=== PATIENT | male | born 1950 | race Caucasian/White ===

== ENCOUNTER → 2016-10-06 | Day surgery (SDC) | payer OTHER ==
[2016-09-24 12:51] VITALS: Ht 177.8 cm; Wt 88.6 kg
[~2016-10-06] VITALS: Ht 177.8 cm; Wt 88.6 kg
[2016-10-06] VITALS (8 sets, daily range): BP systolic 90–115; BP diastolic 49–62; PULSE 71–79; TEMP 36.6–36.9; O2SAT 93–97
[~2016-10-06] MED LIST: ATROPINE SULFATE 0.1 MG/ML 5ML SYR IV PRN; BUPIVACAINE 0.5 % 5 MG/1 ML MPF 30ML VIAL ONE; CEFAZOLIN 2000 MG/60 ML D5W IV SCH; CEFAZOLIN SOD 1 GM VIAL ONE; CITA40TA4 PO; CLINDAMYCIN 600 MG/54 ML D5W IV SCH; CLINDAMYCIN PHOS 150 MG/ML 2 ML VIAL ONE; CONRAY 60% 50 ML VIAL ONE; DEXAMETHASONE SOD INJ 4 MG/ML VIAL ONE; EpHEDrine SULFATE 50MG/5ML SYR ONE; EpHEDrine SULFATE INJ 50 MG/ML AMP IV PRN; FENTANYL CITRATE INJ 50 MCG/1 ML 2 ML VIAL ONE; GLYCOPYRROLATE INJ 0.2 MG/ML VIAL ONE; HEPARIN SOD (PORCINE) 1000 UNIT/ML 10 ML VIAL ONE; LACTATED RINGER'S 1000ML 1,000 ML IV SCH; LIDOCAINE HCL 2% 2 ML VIAL (20MG/ML) ONE; METO25TA3 PO; MIDAZOLAM HCL 1 MG/ML 2ML VIAL ONE; MoRPHine SULFATE 4 MG/ML 1 ML CARP\\VIAL IV PRN; NEOSTIGMINE METHYLSULFATE 5 MG/5 ML SYR ONE; NURSING VERBAL MED ORDER ONE; ONDANSETRON INJ 2 MG/ML 2 ML VIAL IV PRN; ONDANSETRON INJ 2 MG/ML 2 ML VIAL ONE; OXYCODONE/ACETAMINOPHEN 5-325 TAB PO PRN; PANT40TA PO; PROPOFOL IV EMULSION 10 MG/ML 20 ML VIAL IV ONE; ROCURONIUM BROMIDE 10 MG/ML 5 ML VIAL IV ONE; SODIUM CHLORIDE 0.9% 1000ML 1,000 ML IV SCH
--- NOTE | 2016-10-06 06:59 | History & Physical Bridge Note ---
H&P Re-Evaluation Bridge Note: I have examined the patient, reviewed the History & Physical and in the interval since the performance of the History & Physical I have noted the following changes of clinical significance: No changes noted
--- NOTE | 2016-10-06 08:24 | [facility] Post Operative Brief Note ---
Immediate Operative Summary Operative Date Oct 06, 2016. Pre-Operative Diagnosis Calculus of Gallbladder without Cholecystitis without obstruction Post-Operative Diagnosis Same as preoperative Procedure(s) Performed Laparoscopic Cholecystectomy Surgeon Dr. 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
--- NOTE | 2016-10-06 08:31 | Discharge Instructions ---
Discharge Instructions Date of Service Oct 06, 2016. Admission Reason for Admission: Calculus Of Gallbladder Discharge Discharge Diagnosis / Problem: Same Discharge Goals Goal(s): Decrease discomfort Activity Recommendations Activity Limitations: per Instructions/Follow-up section Lifting Limitations: no more than 10 pounds Shower/Bathe: tomorrow (Shower only) . Current Hospital Diet Patient's current hospital diet: Discharge Diet Recommended Diet: Regular Diet Procedures Procedures Performed: Laparoscopic Cholecystectomy Pending Studies Studies pending at discharge: yes List of pending studies: Pathology Medical Emergencies . Who to Call and When: Medical Emergencies: If at any time you feel your situation is an emergency, please call 911 immediately. . Non-Emergent Contact Non-Emergency issues call your: Primary Care Provider, Surgeon Call Non-Emergent contact if: your pain is worsening, wound has increased redness, wound has increased pain . "Provider Documentation" section prepared by Jimi Caal. . VTE Core Measure Inpt VTE Proph given/why not?: Treatment not indicated
[2016-10-06] MEDS: FENTANYL CITRATE INJ 50 MCG/1 ML 2 ML VIAL IV PRN ×2 (08:46→08:51)
--- NOTE | 2016-10-06 09:08 | Anesthesiology Progress Note ---
Anesthesia Post Op Note Date & Time Oct 06, 2016 at 09:08 Vital Signs Pain Intensity: 3 Vital Signs Past 12 Hours Date Time Temp Pulse Resp B/P (MAP) Pulse Ox O2 Delivery O2 Flow Rate FiO2 10/06/16 09:05 36.9 75 16 98/60 92 Nasal Cannula 4 10/06/16 08:55 79 14 94/61 92 Nasal Cannula 4 10/06/16 08:45 82 14 105/62 96 Oxymask 10 10/06/16 08:35 84 14 103/58 96 Oxymask 10 10/06/16 08:24 36.4 86 14 98/61 95 Oxymask 10 10/06/16 05:54 36.6 71 18 115/62 (79) 97 Room Air Notes Mental Status: alert / awake / arousable, participated in evaluation Pt Amnestic to Procedure: Yes Nausea / Vomiting: adequately controlled Pain: adequately controlled Airway Patency, RR, SpO2: stable & adequate BP & HR: stable & adequate Hydration State: stable & adequate Anesthetic Complications: no major complications apparent
--- NOTE | 2016-10-06 10:00 | OPERATIVE REPORT ---
DATE OF OPERATION: 10/06/2016 PREOPERATIVE DIAGNOSES: Cholelithiasis, chronic cholecystitis. POSTOPERATIVE DIAGNOSES: Same. PROCEDURE: Laparoscopic cholecystectomy. SURGEON: Jimi Caal MD FINDINGS: The gallbladder was not dilated. There was a large stone within its lumen. The cystic duct was narrow. The liver appeared to be of normal size and contour and the visible bowel appeared normal. There were no adhesions to the gallbladder. TECHNIQUE: The patient was given a general anesthetic and the area was prepped and draped in usual sterile fashion. Transverse incision was made below the umbilicus, carried down through the subcutaneous tissue to the fascia which was grasped with 2 Pavel clamps and incised between. The peritoneum was identified, incised, and the introducer was placed bluntly. The abdomen was then insufflated to a pressure of 15 mmHg with carbon dioxide. The upper, midline, mid clavicular and anterior axillary introducers were placed under direct vision through small skin incisions. Traction was placed on the gallbladder. Beginning on the lateral side, the peritoneum was opened and the infundibulum was dissected away from the liver on that side. I then worked over the anterior surface of the infundibulum and into the triangle of Calot and opened it and dissected the medial aspect of the infundibulum away from the liver allowing better mobility. There was a significant amount of thickened connective tissue and lymphatics adherent to the cystic duct, which were taken down using cautery, which exposed the cystic duct on the medial anterior side. I was then able to dissect additional tissue away from the lateral side and establish a plane behind the cystic duct. I then dissected additional infundibulum posteriorly that away from the liver that allowed me then to identify the cystic artery in the triangle of Calot. I was able to identify with confidence the cystic duct gallbladder junction. Three clips were placed on the proximal cystic duct, one near the gallbladder and it was divided. That allowed me to fully expose the cystic artery, which was clamped twice proximally and once near the gallbladder and divided. The gallbladder was then peeled off the liver bed using cautery. In doing so, there was another tubular structure that was either a posterior branch of the artery or lymphatic that was clamped and divided. Once the gallbladder was completely away from the liver, it was placed into an Endobag and brought out through the upper midline incision where I had to open the gallbladder on the outside and remove the bile. I then had to crush the stone in order to extract the gallbladder within the bag, but that was completed. That introducer was replaced and the liver edge was elevated. The subdiaphragmatic and subhepatic spaces were irrigated and the irrigation was removed. The gallbladder bed of the liver was inspected and there was no bleeding. The previously placed clips were intact. The gas was allowed to escape, removed using suction. The fascia of the introducers were removed and then the fascia of the umbilical and upper midline introducer sites was closed with interrupted 0 Vicryl and the skin of all the incisions was closed with 4-0 Monocryl in either an interrupted or running subcuticular fashion. The skin was cleansed, dried, benzoin placed, and Steri-Strips applied. The estimated blood loss was 5 mL. Sponge, needle and instrument counts were correct x2 prior to closure. The patient tolerated the surgical procedure without complication and was transferred to recovery. I attest to the content of the Intraoperative Record and any orders documented therein. Any exceptions are noted below. RUSS
== END | disposition home or self-care (01) ==
LOC: C.ACU 05:19
PROVIDERS: ATTEND Surgery
DX: K80.10 Calculus of gallbladder with chronic cholecystitis without obstruction (principal); I48.91 Unspecified atrial fibrillation; I48.92 Unspecified atrial flutter; K21.9 Gastro-esophageal reflux disease without esophagitis; D89.0 Polyclonal hypergammaglobulinemia; Z87.891 Personal history of nicotine dependence; Z79.899 Other long term (current) drug therapy

== ENCOUNTER → 2017-06-03 | Outpatient (CLI) | payer OTHER ==
[~2017-06-03] MED LIST changes: -ATROPINE SULFATE 0.1 MG/ML 5ML SYR IV PRN; -BUPIVACAINE 0.5 % 5 MG/1 ML MPF 30ML VIAL ONE; -CEFAZOLIN 2000 MG/60 ML D5W IV SCH; -CEFAZOLIN SOD 1 GM VIAL ONE; -CLINDAMYCIN 600 MG/54 ML D5W IV SCH; -CLINDAMYCIN PHOS 150 MG/ML 2 ML VIAL ONE; -CONRAY 60% 50 ML VIAL ONE; -DEXAMETHASONE SOD INJ 4 MG/ML VIAL ONE; -EpHEDrine SULFATE 50MG/5ML SYR ONE; -EpHEDrine SULFATE INJ 50 MG/ML AMP IV PRN; -FENTANYL CITRATE INJ 50 MCG/1 ML 2 ML VIAL ONE; -GLYCOPYRROLATE INJ 0.2 MG/ML VIAL ONE; -HEPARIN SOD (PORCINE) 1000 UNIT/ML 10 ML VIAL ONE; -LACTATED RINGER'S 1000ML 1,000 ML IV SCH; -LIDOCAINE HCL 2% 2 ML VIAL (20MG/ML) ONE; -MIDAZOLAM HCL 1 MG/ML 2ML VIAL ONE; -MoRPHine SULFATE 4 MG/ML 1 ML CARP\\VIAL IV PRN; -NEOSTIGMINE METHYLSULFATE 5 MG/5 ML SYR ONE; -NURSING VERBAL MED ORDER ONE; -ONDANSETRON INJ 2 MG/ML 2 ML VIAL IV PRN; -ONDANSETRON INJ 2 MG/ML 2 ML VIAL ONE; -OXYCODONE/ACETAMINOPHEN 5-325 TAB PO PRN; -PROPOFOL IV EMULSION 10 MG/ML 20 ML VIAL IV ONE; -ROCURONIUM BROMIDE 10 MG/ML 5 ML VIAL IV ONE; -SODIUM CHLORIDE 0.9% 1000ML 1,000 ML IV SCH
--- NOTE | 2017-06-03 12:35 | DIAGNOSTIC IMAGING REPORT ---
GUIDANCE NEEDLE PLACEMENT CLINICAL HISTORY: LYMPH NODE NECK/ABNORMAL PET SCAN TECHNIQUE: Ultrasound guided fine needle aspiration with core biopsy COMPARISON STUDY: None FINDINGS: Following description of the procedure and informed consent, 2 passes with a 25-gauge needle were obtained. This is followed by 2 passes with a 20-gauge core biopsy needle. Given the patient's stated allergy to Novocain/lidocaine, the study was performed without the substance. IMPRESSION: Successful fine-needle aspiration and core needle biopsy of a large right axillary node. No complications. Lidocaine was not used in this procedure given the patient's stated severe contrast allergy The above report was generated using voice recognition software. It may contain grammatical, syntax or spelling errors. Electronically signed by: Jimi Villanueva M.D. 06/03/2017 12:34 PM Dictated Date/Time: 06/03/2017 12:30 PM
== END | disposition home or self-care (01) ==
LOC: C.ULTR 10:45
PROVIDERS: ATTEND Physician Assistant
DX: C88.0 Waldenstrom macroglobulinemia (principal)

== ENCOUNTER → 2017-09-07 | Day surgery (SDC) | payer OTHER ==
[2017-09-03 10:45] VITALS: BMI 25.0
[~2017-09-07] VITALS: Ht 177.8 cm; Wt 77.2 kg
[~2017-09-07] MED LIST changes: +ALLO100T PO; +ATROPINE SULFATE 0.1 MG/ML 5ML SYR IV PRN; +BACITRACIN OINT 15 GM TUBE ONE; +BUPIVACAINE 0.25% 30 ML VIAL ONE; +CLINDAMYCIN 600 MG/54 ML D5W IV SCH; +CLINDAMYCIN IV 600 MG in DEXTROSE 5% 50ML 50 ML IV ONE; +DEXT1TAB50 PO; +EpHEDrine SULFATE INJ 50 MG/ML AMP IV PRN; +FENTANYL CITRATE INJ 50 MCG/1 ML 2 ML VIAL ONE; +FLUT0.15 INTNAS; +LACTATED RINGER'S 1000ML 1,000 ML IV SCH; +LIDOCAINE HCL 1% 20 ML VIAL ONE; +LIDOCAINE HCL 2% 2 ML VIAL (20MG/ML) ONE; +MECL1TAB42 PO; -METO25TA3 PO; +MIDAZOLAM HCL 1 MG/ML 2ML VIAL ONE; +MoRPHine SULFATE 2 MG/ML CARP IV PRN; +ONDA-170 PO; +ONDANSETRON INJ 2 MG/ML 2 ML VIAL IV PRN; +ONDANSETRON INJ 2 MG/ML 2 ML VIAL ONE; +OXYC-57 PO; +OXYCODONE/ACETAMINOPHEN 5-325 TAB PO PRN; +PHENYLEPHRINE 100MCG/ML 5ML SYR ONE; +PROPOFOL IV EMULSION 10 MG/ML 20 ML VIAL ONE; +SODIUM CHLORIDE 0.9% 1000ML 1,000 ML IV SCH; +VNTHFA/IN INH
[2017-09-07 05:39] VITALS: BP 108/48; PULSE 82; TEMP 37; O2SAT 99; Ht 177.8 cm; Wt 77.2 kg
--- NOTE | 2017-09-07 07:54 | [facility] Post Operative Brief Note ---
Immediate Operative Summary Operative Date Sep 07, 2017. Pre-Operative Diagnosis Lymphoma Post-Operative Diagnosis same Procedure(s) Performed Infusaport Insertion, right internal jugular vein Surgeon Dr. 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
--- NOTE | 2017-09-07 08:08 | Discharge Instructions ---
Discharge Instructions Date of Service Sep 07, 2017. Visit Reason for Visit: Circulatory System Disorder Discharge Discharge Diagnosis / Problem: S/P port insertion Discharge Goals Goal(s): Decrease discomfort, Improve function Activity Recommendations Activity Limitations: per Instructions/Follow-up section Lifting Limitations: no more than 25 pounds Exercise/Sports Limitations: rest today May Resume Sexual Activity: when tolerated Shower/Bathe: may shower/bathe in 3 days Driving or Machine Use: resume 3 days after discharge Anesthesia . Post Anesthesia Instructions: If you have had General Anesthesia or IV Sedation: * Do not drive today. * Resume driving when surgeon permits. * Do not make important decisions or sign legal documents today. * Call surgeon for: 1. Temperature elevations greater than 101 degrees F. 2. Uncontrollable pain. 3. Excessive bleeding. 4. Persistent nausea and vomiting. 5. Medication intolerance (nausea, vomiting or rash). * For nausea and vomiting use only clear liquids such as: tea, soda, bouillon until nausea subsides, then gradually increase diet as tolerated. * If you have any concerns or questions, call your surgeon's office. If physician is unavailable and it is an emergency, call 911 or go to the nearest emergency room. . Instructions / Follow-Up Instructions / Follow-Up keep the dressing on for 4 days, he can take a shower on 09/11/2017, no driving while taking pain medicine, apply bacitricin on incision site once a day after 4 days, Follow up Dr Milly Ni in 1-2 weeks, Diet Recommendations Recommended Home Diet: resume previous diet Procedures Procedures Performed: Infusaport Insertion, right internal jugular vein Pending Studies Studies pending at discharge: no Medical Emergencies . Who to Call and When: Medical Emergencies: If at any time you feel your situation is an emergency, please call 911 immediately. . Non-Emergent Contact Non-Emergency issues call your: Surgeon Call Non-Emergent contact if: you have a fever, temperature is above 100.5, your pain is not controlled, your pain is worsening, wound has increased drainage, wound has increased redness . . "Provider Documentation" section prepared by Jyoti Ni. . [place] Drug Monitoring Program Search Results: no issues identified
--- NOTE | 2017-09-07 08:20 | DIAGNOSTIC IMAGING REPORT ---
CHEST ONE VIEW PORTABLE CLINICAL HISTORY: TO r/o ptx tube position COMPARISON STUDY: No previous studies for comparison. FINDINGS: Central catheter in the superior vena cava. No evidence pneumothorax. Slight left and to lesser extent right basilar interstitial prominence. Diaphragms smooth. No evidence for consolidative infiltrate. IMPRESSION: 1. Central catheter in superior vena cava. 2. No evidence pneumothorax. 3. Potential minimal infiltrative process left base. The above report was generated using voice recognition software. It may contain grammatical, syntax or spelling errors. Electronically signed by: Jimi Villanueva M.D. 09/07/2017 8:19 AM Dictated Date/Time: 09/07/2017 8:18 AM
[2017-09-07 08:35] VITALS: BP 88/54; PULSE 77; TEMP 36.4; O2SAT 93
--- NOTE | 2017-09-07 08:50 | Anesthesiology Progress Note ---
Anesthesia Post Op Note Date & Time Sep 07, 2017 at 08:49 Vital Signs Pain Intensity: 0 Vital Signs Past 12 Hours Date Time Temp Pulse Resp B/P (MAP) Pulse Ox O2 Delivery O2 Flow Rate FiO2 09/07/17 08:20 36.3 78 16 101/54 96 Room Air 09/07/17 08:10 81 16 101/59 96 Oxymask 3 09/07/17 08:00 36.4 90 16 84/48 94 Oxymask 5 09/07/17 05:39 37.0 82 20 108/48 (68) 99 Room Air Notes Mental Status: alert / awake / arousable, participated in evaluation Pt Amnestic to Procedure: Yes Nausea / Vomiting: adequately controlled Pain: adequately controlled Airway Patency, RR, SpO2: stable & adequate BP & HR: stable & adequate Hydration State: stable & adequate Anesthetic Complications: no major complications apparent
[2017-09-07 08:55] VITALS: BP 84/50; PULSE 79; TEMP 36.4; O2SAT 95
[2017-09-07 09:10] VITALS: BP 92/53; PULSE 82; TEMP 36.4; O2SAT 94
[2017-09-07 09:40] VITALS: BP 92/60; PULSE 78; TEMP 36.4; O2SAT 97
--- NOTE | 2017-09-07 11:01 | OPERATIVE REPORT ---
DATE OF OPERATION: 09/07/2017 PREOPERATIVE DIAGNOSES: Lymphoma. POSTOPERATIVE DIAGNOSIS: Lymphoma. PROCEDURE: Port insertion in right internal jugular vein. SURGEON: Jyoti Ni MD ANESTHESIA: Conscious sedation plus local. ESTIMATED BLOOD LOSS: About 5 mL FINDINGS: Patent right internal jugular vein. COMPLICATIONS: None. INDICATIONS FOR THE PROCEDURE: This is a 67-year-old gentleman who required to do port insertion for his chemotherapy for lymphoma. I did talk to patient about the benefit, the risk, alternate procedure. I indicated the risks may include but not limited such as bleeding, infection, injury of vessel, dysfunction of catheter, bladder clot. Patient understands. He signed informed consent. He agreed to proceed with procedure. I answered all questions. DETAILS OF PROCEDURE: We brought the patient to the OR, put the patient on the supine position and patient is ALLERGIC TO NOVOCAIN, for that anesthesia already recommended use of sedation plus local with 1% lidocaine and patient received conscious sedation by the anesthesiology and also patient received 600 mg clindamycin IV for prophylactic antibiotic. Patient received SCD on bilateral legs to prevent DVT. Then the patient's right side neck and the right upper chest were properly draped in routine sterile fashion. After time out, I did injection of 1% lidocaine on the right side of the neck and wait 2 minute. Patient had normal heart rate and blood pressure was stable. Then, I did injection of the local 1% lidocaine along right upper chest, then I used ultrasound to locate the right internal jugular vein. I then made a 0.5 cm incision on the right side of neck, used a 15-gauge needle puncture to the right internal jugular vein without difficulty, easy blood return. We passed the wire over the needle and removed the needle. Then used a fluorescence x-ray confirmed the wire in the superior vena cava and made a 2.5 cm incision on the right upper chest to create the pouch. Then I used a tunneled dilator passed the upper chest to the right neck and passed the catheter through the tunnel, we sized the catheter. The catheter and the port flushed with normal saline plus heparin. Then, we used a dilator sheath to pass the wire, removed the wire and cord structure, left a sheet in. Then passed the Port-A catheter through the sheath. Then we removed the sheet and again we used the fluorescence x-ray, confirmed the tip of the catheter located in junction between right atrium and the superior vena cava. Then, we used a 2-0 Prolene to fix the port on the chest wall at its 3 points. Then, we used a needle to puncture the port, easy blood return, injection of normal saline with heparin. Then, hemostasis obtained. We closed the subcutaneous layer by using 2-0 Vicryl continuous running, closed skin by using 4-0 Vicryl continuous running. We put the dressing on. The patient tolerated the procedure well. All the instrument, needle and sponge count were correct x2 at the end of case. Patient transferred to recovery room in stable condition. After procedure, I did talk to the patient's about OR finding and procedure we did. She understands. Also, I gave them the postop care instruction. I attest to the content of the Intraoperative Record and any orders documented therein. Any exceptions are noted below. RUSS
== END | disposition home or self-care (01) ==
LOC: C.ACU 05:09
PROVIDERS: ATTEND Surgery
DX: C85.90 Non-Hodgkin lymphoma, unspecified, unspecified site (principal); C88.0 Waldenstrom macroglobulinemia; E86.0 Dehydration; K21.9 Gastro-esophageal reflux disease without esophagitis; F32.9 Major depressive disorder, single episode, unspecified; I48.91 Unspecified atrial fibrillation; N18.3 Chronic kidney disease, stage 3 (moderate); Z82.49 Family history of ischemic heart disease and other diseases of the circulatory system; Z87.891 Personal history of nicotine dependence; Z88.0 Allergy status to penicillin; Z88.8 Allergy status to other drugs, medicaments and biological substances; Z88.4 Allergy status to anesthetic agent

== ENCOUNTER 2018-04-20 14:40 | Inpatient (IN) ==
[2018-04-20] MEDS ORDERED: MAGNESIUM HYDROXIDE SUSP 30 ML UDC PO PRN (15:47)
[2018-04-20] MEDS ORDERED: ONDANSETRON INJ 2 MG/ML 2 ML VIAL IV PRN (15:47)
--- NOTE | 2018-04-20 15:55 | History & Physical Report ---
Date of Service April 20, 2018 Assessment & Plan (1) Hypoxia: Uncertain etiology Ongoing cough Pt with multiple recent admissions for PNA since January with some improvement with abx but then relapses Pulm c/s pending Sputum c/s pending WBC WNL Hb WNL Electrolytes WNL (2) Lymphoma: Uncertain form Recently finished 6 months of chemo Follows with [facility] hem/onc if needed Has a functioning port in place (3) GERD (gastroesophageal reflux disease): continue home meds (4) Anxiety: continue home meds (5) COPD (chronic obstructive pulmonary disease): continue home meds States dx was made during this ongoing pulm issue and is uncertain if it is a real dx for him (6) Afib: s/p ablation x2 No anticoagulation (7) DVT prophylaxis: Holding for likely bronch in AM History of Present Illness Primary Care Provider: Jimmy Caldera, DO 67 y/o M who was sent her from Dr. Hutton's office for hypoxia. Pt was being seen for the first time in that office. Per Dr. Hutton, pt was admitted for 5 days to [facility] where he was tx for PNA and DAYDAY. He was readmitted on 03/16 for 5 days for strep PNA and was tx with levaquin. He was admitted again on 03/25 and noted to have a CT with an infiltrate and some sort of irregular opacity in RUL/RML. He was again tx with levaquin. Pt does not have this paperwork with him, but had brought it to Dr. Hutton's office and he relayed this info to me verbally. Pt was sent here for c/o hypoxia in the office of 84% on RA. Pt tells me he feels that he is getting worse again. He has had a cough since January when he started with the initial admission at [facility]. He states it will get better initially after tx, but then return until he has another round of abx. At this point, he feels that his cough is the worse it has been. It never fully resolves after tx. He is producing green sputum. He states he is SOB at times, but more from coughing. He gets chest pain "in my lungs" from coughing. He did have an episode of n/v today while driving to [place] for his appt, but generally this is not an issue. He does have a poor appetite. Pt just finished a 6 months course of chemo for lymphoma with Dr. Marie of [facility]. He is not certain what type of lymphoma. He states he has a low appetite recently with this. He states he has lost 50 lbs since starting chemo in August. At one point he had put some weight back on, but this has recently been lost again. Pt has a port in place. Pt states he was dx with COPD during this course of tx, but he states he was still being tx for PNA and is not certain if this is a real dx for him. He does use his inhalers though. Pt denies fever, abd pain, c/d, LE pain or swelling. Allergies Allergy/AdvReac Type Severity Reaction Status Date / Time Penicillins Allergy Unknown UNKNOWN Verified 09/07/17 05:35 procaine Allergy Unknown UNKNOWN Verified 09/07/17 05:35 Home Medications Home Medications Medication Instructions Recorded Confirmed Type CITALOPRAM HYDROBROMIDE 20 mg PO QAM #0 09/24/16 History Pantoprazole (Protonix) 40 mg PO QAM #0 09/24/16 History ALBUTEROL HFA (VENTOLIN HFA) 2 puff INHALATION Q6H PRN #1 09/03/17 History inhaler ONDANSETRON HCL (ZOFRAN) 8 mg PO PRN PRN #0 tab 09/03/17 History azelastine 2 spray INTRANASAL BID 04/20/18 04/20/18 History zolpidem [Ambien] 10 mg PO 04/20/18 History Past Med/Surg History Social History Preferred Language: French Communication Ability: Effective Director Sales Support Required: No Beliefs That Will Affect Care: None Current Living Situation: Spouse Other Information That Helps Us Care for You: No Feels Safe at Home: Yes Safety Concerns: Feels Safe At This Time Smoking Status: Former smoker Hx Alcohol Use: Yes Hx Substance Use: No Review of Systems Pertinent positives and negatives reviewed in HPI--all others negative Physical Exam Constitutional: WD/WN, vitals as above Eyes: normal visual bhatt by confrontation and + anicteric sclerae Neck: normal visual inspection and trachea midline Respiratory: normal respiratory effort and + cough; no respiratory distress lungs initially with upper respiratory congestion sounds, however pt had a cough spell and now CTA Cardiovascular: Rate/Rhythm: regular rate and regular rhythm Gastrointestinal (Abdomen): Inspection/Auscultation: abdomen not distended Percussion/Palpation: abdomen soft; abdomen nontender Musculoskeletal: Head/Neck/Chest: normocephalic and head atraumatic negative for edema, peripheral pulses intact Skin: no rashes, warm and dry Neurologic: awake; not confused Speech / Cognition: normal speech Psychiatric: A+Ox3, euthymic affect Code Status & VTE Plan Code Status Full code VTE Prophylaxis Plan VTE Prophylaxis will be ordered: Yes
[2018-04-20 16:31] LABS: Basophils # (auto) 0.01 K/uL (0-0.2); Basophils % (auto) 0.1 %; Eosinophils # (auto) 0.11 K/uL (0-0.5); Eosinophils % (auto) 1.5 %; Hematocrit (blood only) 39.1 % (42-52); Hemoglobin 13.2 g/dL (14.0-18.0); Immature Granulocytes # (auto) 0.01 K/uL (0.00-0.02); Immature Granulocytes % (auto) 0.1 %; Lymphocytes # (auto) 0.34 K/uL (1.2-3.4); Lymphocytes % (auto) 4.8 %; Mean Corpuscular Hgb Conc 33.8 g/dL (32-36); Mean Corpuscular Volume 84.1 fL (80-100); Mean Platelet Volume 9.8 fL (7.4-10.4); Monocytes % (auto) 5.6 %; Neutrophils # (auto) 6.28 K/uL (1.4-6.5); Neutrophils % (auto) 87.9 %; Platelet Count 103 K/uL (130-400); RDW Coefficient of Variation 15.5 % (11.5-14.5); RDW Standard Deviation 46.9 fL (36.4-46.3); Red Blood Count 4.65 M/uL (4.7-6.1); White Blood Count 7.15 K/uL (4.8-10.8)
[2018-04-20 17:00] LABS: Albumin Level 3.2 gm/dl (3.4-5.0); BUN Creatinine Ratio 10.9 (10-20); Calcium 8.6 mg/dl (8.5-10.1); Creatinine Clr Calc Pharmacy 59.3 ml/min; Est GFR (African American) 69.5; Est GFR (Non-African American) 59.9; Magnesium 1.5 mg/dl (1.8-2.4); Potassium 3.6 mmol/L (3.5-5.1)
[2018-04-20 17:02] LABS: Albumin Globulin Ratio 0.9 (0.9-2); Bilirubin,Total 0.7 mg/dl (0.2-1); Globulin 3.6 gm/dl (2.5-4.0); Phosphorus 2.3 mg/dl (2.5-4.9); Total Protein 6.8 gm/dl (6.4-8.2)
[2018-04-20 18:56] LABS: Partial Thromboplastin Ratio 1.5; Partial Thromboplastin Time 39.9 Seconds (21.0-31.0); Prothrombin Time 10.3 Seconds (9.0-12.0)
--- NOTE | 2018-04-20 19:02 | XRay Report ---
TWO VIEW CHEST CLINICAL HISTORY: Hypoxia. FINDINGS: PA and lateral chest radiographs are compared to study dated 09/07/2017. Correlation is made with PET CT dated 05/20/2017. A right internal jugular central venous infusion port is unchanged in p osition. The cardiomediastinal silhouette is unremarkable. Emphysema and chronic interstitial thicken ing are similar to previous. Enlargement of the central pulmonary arteries suggest pulmonary artery h ypertension. Airspace opacities are seen at the left lung base. No pleural effusion is identified. Fo ci of parenchyma scarring are noted in both lungs. Nipple shadows project over both lung bases. There is no pneumothorax. The skeletal structures are osteopenic. Degenerative change is noted in the thor acic spine. The bony thorax appears intact. IMPRESSION: 1. Emphysema. 2. There are patchy airspace opacities at the left lung base in the retrocardiac region. This could r epresent scarring/atelectasis versus an infectious/inflammatory pneumonitis. Clinical correlation herber l be required. Electronically signed by: Gt Blackmon M.D. 04/20/2018 7:01 PM
[2018-04-20] MEDS ORDERED: ALBUTEROL HFA 8 GM INHALER INH PRN (21:15)
[2018-04-20] MEDS ORDERED: ONDANSETRON 8 MG TABLET PO PRN (21:15)
[2018-04-20] MEDS: HEPARIN 100 UNIT/ML 5ML FLUSH FLUSH PRN (21:16)
[2018-04-20] MEDS ORDERED: ZOLPIDEM TARTRATE 10 MG TAB PO ONE (23:47)
[2018-04-21] MEDS: AZELASTINE - ORDER AWAITING ACTION SCH ×3 (00:08→17:00)
--- NOTE | 2018-04-21 03:24 | Consultation Report ---
DATE OF CONSULTATION: 04/20/2018 REASON FOR CONSULTATION: Chronic cough in a patient with history of non-Hodgkin's lymphoma. HISTORY OF PRESENT ILLNESS: The patient is a 67-year-old white male who was referred to Dr. Anjum Hutton/pulmonary medicine today by his primary care physician, Dr. Kaur from [place]. The patient has had 3 recent admissions to [facility]. In 01/2018, he was admitted with diagnosis of pneumonia, dehydration and renal failure. He was extremely weak. He had just completed a course of chemotherapy for non-Hodgkin's lymphoma and had previously been diagnosed with Waldenstrom's macroglobulinemia. Apparently, he has had this cough since December and has progressed causing him severe paroxysms of coughing with dyspnea. During the second admission on 03/16/2018 strep pneumonia was grown either from the sputum or blood, it was unclear and he was given Levaquin and was hospitalized for an additional 5 days. He was readmitted on 03/25/2018 once again having completed those antibiotics and then complaining of rattling and a severe cough in the chest with shortness of breath. He was treated again for several days and discharged on another course of Levaquin for 9 additional days. He has been bringing up greenish mucus for the past 5 days without blood and has been short of breath. He has not been sent home on oxygen, although clinically were evaluated by Dr. Hutton today. His O2 sat was 84% on room air. He was extremely winded just walking down the hallway. He has lost approximately 45 pounds in the past 15 months. He was diagnosed with Waldenstrom's macroglobulinemia 6-7 years ago. He was not treated initially and then developed diffuse lymphadenopathy in the groin, axilla, neck and a biopsy was done with the diagnosis of lymphoma made. He has been evaluated and followed by Dr. Rai, Division of Oncology with [facility]. Those records have been sent. PAST SURGICAL HISTORY: Appendectomy at age 8, cholecystectomy, right leg fracture and he has Infusaport. FAMILY HISTORY: His mother of breast cancer and COPD. Father of COPD and alcoholism. SOCIAL HISTORY: He smoked a pack a day for 25 years, having quit 20 years ago. ALLERGIES: HE IS ALLERGIC TO PENICILLIN AND NOVOCAIN. 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 CURRENT MEDICATIONS: Include Breo Ellipta 200/25 one inhalation daily, Flonase nasal spray, Protonix 40 mg daily. He has trouble with prednisone with severe reflux and burning sensation. For details of past medical history, I am referring you to current record. PHYSICAL EXAMINATION: GENERAL: A middle aged white male, appearing, cooperative of fatigue and coughing frequently. VITAL SIGNS: Temperature 98.6, pulse 96 and regular, respiratory rate mid 20s. He is afebrile. SKIN: Without lesion. HEENT: Atraumatic, normocephalic. PERRLA. LUNGS: Cannot make a full inspiratory effort without coughing. He has diffuse rhonchi and some fine but bibasilar rales, O2 sat 84% on room air. ABDOMEN: Soft, scaphoid. No evidence of hepatosplenomegaly. EXTREMITIES: No significant pedal edema, clubbing or cyanosis. NEUROLOGIC: Intact. No lateralizing signs. LABORATORY DATA: Chest x-ray from 02/15/2018 at [facility] reportedly shows right middle lobe atelectasis, but no definite consolidation. CT scan from 03/2018 shows opacity in the inferior right upper lobe and minimal opacity in the right middle lobe and left lower lobe suspicious for pneumonia. Chest x-ray in 02/2018. No overt active disease. The lab pending. Echo showed normal LVEF, severely dilated left atrium, mild mitral regurgitation. OVERALL ASSESSMENT: A 67-year-old white male with diagnosis of non-Hodgkin's lymphoma/Waldenstrom's macroglobulinemia with persistent cough, right middle lobe atelectasis refractory to aggressive medical management previously as both an inpt on multiple occasions and outpt and presents w hypoxemia and symptomatic/refractory cough. PLAN: Bronchoscopy tomorrow. We will check routine coagulation parameters. MTDD
--- NOTE | 2018-04-21 07:48 | History & Physical Bridge Note ---
Date of Service April 21, 2018 History & Physical Bridge Note I have examined the patient, reviewed the History & Physical and in the interval since the performance of the History & Physical I have noted the following changes of clinical significance: no changes noted
--- NOTE | 2018-04-21 07:49 | Pre Anesthesia Assessment ---
Date of Service April 21, 2018 Pre Sedation Assessment Vital Signs Temp Pulse Pulse Resp BP Pulse Ox Pulse Ox 04/21/18 00:09 37.5 C 109 H 18 98/63 L 90 04/21/18 00:00 105 H 04/20/18 19:52 36.9 C 111 H 22 116/70 94 04/20/18 16:57 92 04/20/18 16:20 36.7 C 102 H 20 128/80 92 Cardiovascular RRR, no murmur, no edema + peripheral pulses normal Respiratory normal respiratory effort, lungs clear to auscultation Pre-Sedation Airway Assessment Smoking Status: Former smoker Hx Sleep Apnea: No Hx Difficult Intubation: No Short, Thick Neck: No Thyromental Distance: > or= 3.5 Finger Breadths Oral Cavity: + WNL Mallampati Class: II ASA: ASA3 Procedure Planning Contraindications for Sedation: none Current Medications Reviewed: Yes Notes The planned sedation has been discussed with the patient. Informed Consent was obtained. I have identified the patient, determined the appropriateness of sedation and have assessed the patient immediately prior to the procedure. All medicine(s) and interventions are by my order.
[2018-04-21] MEDS ORDERED: MIDAZOLAM HCL 1 MG/ML 2ML VIAL IV STA (08:43)
[2018-04-21] MEDS ORDERED: LEVALBUTEROL HCL 1.25 MG/3 ML NEB NEB STA (08:43)
[2018-04-21] MEDS ORDERED: OXYMETAZOLINE 0.05% 30 ML BTL ONE (08:43)
[2018-04-21] MEDS ORDERED: LIDOCAINE HCL 2% (LOCAL) INJ 50 ML VIAL INFIL STA (08:43)
[2018-04-21] MEDS ORDERED: fentaNYL citrate 100 MCG/2 ML VIAL IV ONE (08:43)
--- NOTE | 2018-04-21 08:48 | Post Anesthesia Assessment ---
Date of Service April 21, 2018 Post Sedation Assessment Vital Signs Temp Pulse Pulse Resp BP Pulse Ox Pulse Ox 04/21/18 08:35 93 H 22 132/69 94 04/21/18 08:30 103 H 22 95/52 L 96 04/21/18 08:25 87 14 102/60 93 04/21/18 08:20 94 H 18 110/53 L 93 04/21/18 08:11 89 18 112/75 95 04/21/18 08:05 36.9 C 89 16 98/59 L 90 04/21/18 08:00 92 04/21/18 00:09 37.5 C 109 H 18 98/63 L 90 04/21/18 00:00 105 H 04/20/18 19:52 36.9 C 111 H 22 116/70 94 04/20/18 16:57 92 04/20/18 16:20 36.7 C 102 H 20 128/80 92 Recovery Score Activity: Moves 4 extremities Respiration: Deep Breath/Cough Circulation: +/-20% PreAnes Value Consciousness: Arouseable (by name) Oxygen Saturation: O2 needed for >90% Post Anesthesia Score: 8 Discharge Sedation Level of Care: Fast Track Phase II Post Sedation Plan On clinical assessment, the patient appears to have tolerated the sedation without complications. Patient is recovering as anticipated. Patient will continue to be monitored by nursing and may be discharged when sedation discharge criteria are met per below protocol. Upon Completions of procedure and additional 15 minutes continue every 5 minute vital signs and the P.A.R. score; then discharge to a Phase I or Fast Track to Phase II per the following guidelines: * Discharge Patient to appropriate Phase II area if PAR is 8 or greater or return to pre- procedure baseline. The post - procedure orders will be as directed. * If PAR score is less than 8 or not return to pre-procedure baseline then patient will follow Phase I monitoring till PAR is reached for Phase II. The Phase I may be done in procedure room or may call to secure a Phase I area. * If naloxone or flumazenil are used for reversal, hold in Phase I for continued monitoring from when last reversal dose was given for a minimum of 60 minutes or longer pending the nurse and/or physician discretion of patient condition before discharge to Phase II. Please call the Sedation Physician to re-evaluate and complete post-note for discharge to Phase II area. Do NOT discharge from procedure sedation or Phase 1 until post- sedation evaluation note is complete by procedure /sedation MD Sedation Discharge Instructions to be given to the patient at discharge to home.
--- NOTE | 2018-04-21 08:49 | Post Operative Brief Note ---
Immediate Post Op Note v1 Date of Surgery April 21, 2018 Pre & Post Diagnosis Operation Date: 04/21/18 08:15 Pre-Op Diagnosis: PNEUMONIA Post-Op Diagnosis: PNEUMONIA Procedure Operation Date: 04/21/18 08:15 Actual Procedures p Bronchoscopy Radiology(Bilateral) - Tesfaye Marr MD Surgeon Tesfaye Marr MD Molecular Biology Scientist none Estimated Blood Loss 0 Findings Consistent with Post-Op Diagnosis Severe erosive Tracheobronchial infection Complications none Disposition Accompanied Patient To Recovery: No Overlapping Procedure I was present for: the critical portions of procedure. I was immediately available: during the entire case. Back up surgeon: was not required during procedure.
[2018-04-21] MEDS ORDERED: methylPREDNISolone 40 MG in SYRINGE 0 ML IV STA (09:19)
[2018-04-21 10:03] LABS: BUN Creatinine Ratio 11.9 (10-20); Calcium 8.6 mg/dl (8.5-10.1); Creatinine Clr Calc Pharmacy 54.5 ml/min; Est GFR (African American) 62.6; Est GFR (Non-African American) 54.1; Magnesium 1.7 mg/dl (1.8-2.4); Potassium 3.6 mmol/L (3.5-5.1)
[2018-04-21] MEDS: HEPARIN 100 UNIT/ML 5ML FLUSH FLUSH PRN (10:26)
[2018-04-21] MEDS: CITALOPRAM 40 MG TAB PO SCH (10:29)
[2018-04-21] MEDS: PANTOprazole 40 MG TAB PO SCH (10:29)
[2018-04-21] MEDS: LEVALBUTEROL 1.25MG/0.5ML NEB NEB SCH ×3 (13:10→20:12)
[2018-04-21] MEDS ORDERED: IOVERSOL 100ml IV PRN (13:34)
--- NOTE | 2018-04-21 13:45 | CT Scan Report ---
CT OF THE CHEST WITH IV CONTRAST CLINICAL HISTORY: Bronchopneumonia/lymphoma hx COMPARISON STUDY: Chest x-ray dated 04/20/2018 TECHNIQUE: Following the IV administration of 94 mL of Optiray-320, CT of the thorax was performed f rom the thoracic inlet to the lung bases. Images are reviewed in the axial, sagittal, and coronal ashley [place]olina. IV contrast was administered without complication. A dose lowering technique was utilized adher ing to the principles of ALARA. CT DOSE: 442.01 mGycm FINDINGS: Thyroid: Imaged portions of the thyroid gland are normal in appearance. Thoracic aorta: The thoracic aorta is normal in course and caliber, noting standard 3-vessel arch kimi jose luis. No aneurysm or dissection is seen. Pulmonary vasculature: The pulmonary trunk is normal in caliber. There are no central filling defects identified to suggest pulmonary embolus. Note that this examination was not protocoled for the evalu ation of pulmonary emboli. HEART: The heart is normal in size and configuration, without pericardial effusion. Lungs and pleural spaces: There is a small right pleural effusion. There is pulmonary emphysema. Ther e are airspace opacities within the right middle lobe with air bronchograms. There are patchy nodular left lower lobe airspace opacities, likely infectious/inflammatory. There are dependent atelectatic changes in the right lower lobe. There is mild lower lobe bronchiectasis. There is a 1 cm irregular l eft upper lobe pulmonary opacity abutting the major fissure. Mediastinum: There is no evidence of pathologic mediastinal lymphadenopathy Sondra: There is no evidence of pathologic hilar lymphadenopathy Axilla: There is mild bilateral axillary lymphadenopathy Upper abdomen: Partially visualized upper abdominal viscera is within normal limits. Skeletal structures: There are no lytic or blastic osseous lesions. IMPRESSION: 1. Right upper lobe opacities with air bronchograms, left upper lobe irregular 1 cm opacity, and patc hy nodular left lower lobe airspace opacities. The findings are likely infectious/inflammatory. A two -month follow-up studies subsequent antibiotic therapy is recommended 2. Small right pleural effusion 3. Lower lobe bronchiectatic changes 4. Mild bilateral axillary lymphadenopathy Electronically signed by: Don Mendoza M.D. 04/21/2018 1:43 PM
--- NOTE | 2018-04-21 16:27 | Operative Report ---
DATE OF OPERATION: 04/21/2018 PROCEDURE: Fiberoptic bronchoscopy with bronchoalveolar lavage. INDICATIONS: Persistent cough in a patient with diagnosis of non-Hodgkin's lymphoma, refractory to both aggressive outpatient and inpatient management. ANESTHESIA PREOPERATIVELY: None. ANESTHESIA DURING PROCEDURE: IV Versed 5 mg, IV fentanyl 50 mcg, 20 mL 2% Xylocaine spray above and below the cords, 4% viscous Xylocaine intranasally. DESCRIPTION OF PROCEDURE: Fiberoptic bronchoscope was inserted into the right naris with minimal difficulty and passed to the level of the true vocal cords. The cords appear to approximate normally with phonation without evidence of lesions or paralysis. The area was anesthetized with 2% Xylocaine spray and the scope was introduced in the trachea and right and left tracheobronchial tree. The trachea was teaming with mucopurulent secretion lavaged until clear. The camilla was sharp. Severe erosive friable mucosal change was seen throughout the right and left tracheobronchial tree. Right main stem bronchus was then explored initially and no endobronchial lesions were seen. Right upper lobe, the apical posterior and anterior segments, bronchus intermedius, right middle lobe, medial lateral segments and the basilar segments right lower lobe were free of endobronchial lesions, but copious mucopurulent secretion was lavaged from each lobar and segmental bronchi until clear. Left tracheobronchial tree was explored and even more severe erosive, edematous mucosal change was seen, most prominently displayed throughout the left upper lobe and lingula subdivision and left upper lobe, the apical posterior and anterior segments, lingual subdivision with the superior and inferior segments and all basilar segments of left lower lobe were free of endobronchial lesions. Each lobar segment was lavaged with normal saline copiously and the aspirate sent for appropriate studies. Severe intractable paroxysms of coughing were elicited with stimulation. The procedure was terminated. The patient was given a nebulizer treatment with Xopenex 1.25 mg, then transferred back to the medical floor, hemodynamically stable, no signs of respiratory compromise. Will await microbiological and cytologic examination of the bronchial washings. I attest to the content of the Intraoperative Record and any orders documented therein. Any exception s are noted below.
[2018-04-21] MEDS: MAGNESIUM OXIDE 400 MG TAB PO SCH ×2 (16:57→20:00)
[2018-04-21] MEDS ORDERED: VANCOMYCIN CONSULT ACTIVE PRN (17:28)
[2018-04-21] MEDS ORDERED: VANCOMYCIN HCL 1,000 MG in SODIUM CHLORIDE 0.9% 250 ML IV SCH (17:30)
[2018-04-21] MEDS ORDERED: VANCOMYCIN HCL 1,750 MG in SODIUM CHLORIDE 0.9% 500 ML IV SCH (19:30)
[2018-04-21] MEDS: CEFEPIME 1,000 MG in SYRINGE 0 ML IV SCH (19:58)
[2018-04-21] MEDS: methylPREDNISolone 80 MG in SYRINGE 0 ML IV SCH (20:00)
[2018-04-21] MEDS: SODIUM CHLOR 7% 4 ML NEB INH SCH (20:27)
--- NOTE | 2018-04-21 21:40 | Hospitalist Progress Note ---
Date of Service April 21, 2018 Assessment & Plan (1) Multifocal pneumonia: has had numerous treatment courses over 1-2 months with 3 separate hospital stays at [facility] for this. CT chest with b/l pneumonia in multiple lobes. certainly at risk of atypical pathogens given immunocompromised state from lymphoma. other possibility is that of inflammatory lung disease or other entity. s/p bronch today by Dr. Marr. await cultures from bronch. steroids started by Dr. Marr. cont nebs. start cefepime with IV vanco. to obtain CT and cxr's from [place] for us on CD ROM. (2) Acute respiratory failure with hypoxia: 2nd to multifocal pneumonia. he could have mild chronic hypoxia given the clubbing on exam. (3) COPD (chronic obstructive pulmonary disease): with exacerbation. steroids, nebs, etc. (4) Lymphoma: s/p chemo in the recent past. followed by Dr. Frank Lewis H/O. (5) DVT prophylaxis: add lovenox tomorrow will need PT,OT ,sister extensively updated at bedside total time today 35 min Subjective patient and family with numerous questions. patient very frustrated by his prolonged, several month pulmonary illness. wants answers. continues with cough. sputum production is better post-bronch. can take larger breaths post-bronch. reports 20 years of smoking in the past - none recently. Constitutional: no fever Respiratory: + cough, + dyspnea, + sputum production and + wheezing; no hemoptysis Cardiovascular: no chest pain Gastrointestinal: no abdominal pain Physical Exam Vital Signs (Past 24 Hours): Last Vital Signs Temp 36.4 C L 04/21/18 19:50 Pulse 85 04/21/18 20:16 Resp 16 04/21/18 20:16 BP 102/67 04/21/18 19:50 Pulse Ox 94 04/21/18 20:16 Constitutional: well developed and well nourished; no acute distress and not ill appearing coughing ENMT: external ear and nose normal, oropharynx normal Respiratory: Auscultation: + crackles on right - RLL, RML posteriorly; left lung relatively clear Cardiovascular: RRR, no murmur, no edema Heart Sounds: normal S1 and normal S2 Vessels: posterior tibial pulses present and dorsalis pedis pulses present; no JVD Gastrointestinal (Abdomen): normal bowel sounds, soft, nontender, no hepatosplenomegaly Skin: mild fingernail clubbing Psychiatric: A+Ox3, euthymic affect irritable Results & Data Laboratory Results Laboratory Results - last 24 hr 04/21/18 04/21/18 09:35 09:35 ESR 30 H Sodium 140 Potassium 3.6 Chloride 108 H Carbon Dioxide 27 Anion Gap 5.0 BUN 16 Creatinine 1.34 Est Cr Clr Drug Dosing 54.5 Est GFR ( Amer) 62.6 Est GFR (Non-Af Amer) 54.1 BUN/Creatinine Ratio 11.9 Glucose 100 H Calcium 8.6 Magnesium 1.7 L (1) COPD (chronic obstructive pulmonary disease) COPD type: COPD with acute exacerbation Qualified Code(s): J44.1 - Chronic obstructive pulmonary disease with (acute) exacerbation (2) Lymphoma Lymphoma type: unspecified type Lymphoma site: unspecified region Qualified Code(s): C85.90 - Non-Hodgkin lymphoma, unspecified, unspecified site
[2018-04-22] MEDS: ZOLPIDEM TARTRATE 10 MG TAB PO PRN (00:01)
[2018-04-22] MEDS: LEVALBUTEROL 1.25MG/0.5ML NEB NEB SCH ×4 (01:42→19:18)
[2018-04-22] MEDS: AZELASTINE - ORDER AWAITING ACTION SCH ×3 (02:04→15:33)
[2018-04-22] MEDS: CEFEPIME 1,000 MG in SYRINGE 0 ML IV SCH ×2 (06:21→19:21)
[2018-04-22] MEDS: HEPARIN 100 UNIT/ML 5ML FLUSH FLUSH PRN (06:26)
[2018-04-22] MEDS: SODIUM CHLOR 7% 4 ML NEB INH SCH ×2 (07:46→20:36)
[2018-04-22] MEDS: MAGNESIUM OXIDE 400 MG TAB PO SCH ×2 (08:49→21:24)
[2018-04-22] MEDS: CITALOPRAM 40 MG TAB PO SCH (08:50)
[2018-04-22] MEDS: PANTOprazole 40 MG TAB PO SCH (08:50)
[2018-04-22] MEDS: methylPREDNISolone 80 MG in SYRINGE 0 ML IV SCH ×2 (08:51→21:24)
--- NOTE | 2018-04-22 11:17 | Pharmacy Report ---
Pharmacy Abx Initial Consult - Date of Service April 22, 2018 - Pharmacy Dosing Scope Date of Consult: 04/21/18 Consultation requested by: Dr. Kemp Pharmacy is consulted to initiate Vancomycin IV dosing therapy, order appropriate labs and adjust drug dose/frequency. - Subjective The patient is a 67 year old M admitted on 04/20/18 15:12. - Objective Height: 5 ft 10 in Weight: 76 kg Vital Signs (Past 12hrs): Vital Signs Temp Pulse Pulse Resp BP Pulse Ox 04/22/18 07:46 74 18 96 04/22/18 07:17 36.6 C 77 18 100/60 92 04/22/18 04:00 36.4 C L 79 18 113/68 92 04/22/18 00:00 91 H Micro Results: 04/21/18 08:30 Fungal Smear - Final Bronch Wash,Left Lower Lobe Fungal Culture - Pending 04/21/18 08:30 Gram Stain - Final Bronch Wash,Left Lower Lobe Bronchoalveolar Lavage Culture - Pending 04/20/18 Unknown Gram Stain - Final Sputum, Expectorated 04/21/18 08:30 Acid Fast Bacilli Smear - Pending Bronch Wash,Left Lower Lobe Acid Fast Bacilli Culture - Pending - Risk Factors for Resistance * Hospitalization for 48 hours or more within the past 90 days * Immunocompromised (Lymphoma- recent chemo) * Antimicrobial use within the last 90 days [ with Levaquin and possibly other antibiotics d/t recent admissions at [facility] for PNA] - Assessment & Plan Assessment * 67 year old M with multifocal b/l Pneumonia- need to treat like a HAP d/t recent hospital admissions at [place]. * Patient with multiple risk factors for resistance- immunocompromised with recent chemo and recent antibiotic tx for PNA. * Currently ordered both Cefepime and Vancomycin for PNA. Plan Vancomycin IV * Estimated PK Parameters: Vd 0.7 L/kg, John 0.05 hr-1, t1/2 13.9 hr * Loading dose: 1750 mg (23 mg/kg) x 1 dose was given yesterday at 2000. * Maintenance dose: 1250 mg IV (16 mg/kg) every 16 hours to start today at 1200 * Goal trough level for Pneumonia: 15 to 20 mcg/mL * Trough Vanco level ordered for 04/24/18 before dose at 1200 (before 4th maintenance dose) Pharmacy will continue to follow and will adjust dose/frequency as necessary. Thank you.
[2018-04-22] MEDS ORDERED: VANCOMYCIN HCL 1,000 MG in SODIUM CHLORIDE 0.9% 250 ML IV SCH (12:00)
[2018-04-22] MEDS: VANCOMYCIN HCL 1,250 MG in SODIUM CHLORIDE 0.9% 250 ML IV SCH (12:06)
--- NOTE | 2018-04-22 15:05 | Progress Note ---
DATE: 04/22/2018 PULMONARY MEDICINE PROGRESS NOTE Chart reviewed, the patient examined. SUBJECTIVE: The patient feels subjectively better since the bronchoscopic evaluation and BAL yesterday. The patient had severe erosive inflammatory mucosal change throughout the right and left tracheobronchial tree with copious mucopurulent secretions. Cultures were implanted as well as cytologic examination from the washings and brushings. No biopsies or additional specimens were obtained as the patient desaturated and demonstrated significant bronchospasm during the procedure. Today, he is resting much more comfortably, coughing sporadically, feels better, although somewhat frustrated at lengthy clinical course over the last 4 months. 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 The comment on his admission to [facility] from 01/10/2018 to 01/14/2018 for multifocal pneumonia, more prominently displayed within the left lower lobe, having received IV Levaquin, Azactam, vancomycin and prednisone. Blood cultures were negative. PET CT scan in 01/06/2018 showed significant decrease in size and metabolic activity of the bilateral cervical lymphadenopathy. Left cervical level 2A lymph node measuring 1.1 x 1.6 cm, previously measured at 2.7 x 1.7 cm and maximum SUV of 3.4. There was a left cervical lymph node at station 5 measuring 1.2 x 0.7 mm. Submental lymph node was smaller, but did not show significant metabolic activity. In the chest, there was significant decrease in size and metabolic activity of the mediastinal and axillary lymph nodes as well as a right paratracheal lymph node, right axillary, left axillary and bilateral iliac and inguinal lymphadenopathy. The patient's IgM was appropriately decreasing from 5000 in July of 2017 to 1500 in October of 2017. The patient's oncologist is Dr. Rip Rai. PHYSICAL EXAMINATION: CURRENT VITAL SIGNS: Blood pressure 100/60, pulse 88 and regular, respiratory rate 18, temperature 36.6, O2 sat 91% on room air. SKIN: Warm and dry. HEENT: Atraumatic, normocephalic. PERRLA. LUNGS: Distant P and A with scattered wheeze, left base, but improved ability to make a full inspiratory effort without paroxysms of coughing compared to yesterday. CARDIAC: Sinus tachycardia. No murmurs or gallops. ABDOMEN: Soft, scaphoid. No evidence of hepatosplenomegaly. EXTREMITIES: No pedal edema, clubbing or cyanosis. NEUROLOGICAL: Intact. No lateralizing signs. LABORATORY DATA: CT scan of the chest done yesterday and reviewed shows right upper lobe opacities with air bronchograms, left upper lobe irregular 1 cm opacity and patchy nodule, left lower lobe airspace opacities. Infectious or inflammatory small right pleural effusion, lower lobe bronchiectatic changes and mild bilateral axillary lymphadenopathy. Blood cultures pending. Bronchial washings are pending. EKG shows sinus tachycardia with PACs on admission, H and H 13 and 39, normal white count, platelet count of 103,000, 1.5% eosinophils, preponderance of polymorphonuclear leukocytes. BUN 16, creatinine 1.3, magnesium 1.7, albumin depressed at 3.2. Serologies pending. IgG 674 mg per deciliter. OVERALL ASSESSMENT: A 67-year-old with a history of Waldenstrom's macroglobulinemia and lymphoplasmacytic lymphoma, status post 6 cycles of treatment with Rituxan and bendamustine completed in December 2017 with significant clinical response, but with now a 4-month history of worsening respiratory symptoms and areas of pneumonitis with ground-glass opacities that are multifocal in nature. I do need to see the previous CT scans of the chest and they will be delivered to us today to be downloaded on [employer] from previous workup. Cultures are pending at the time of this dictation, but clearly the patient shows significant improvement just in the past 24 hours and even his level of hypoxemia. The patient may benefit from additional bronchoscopic evaluation with BAL and even consider biopsies if necessary. Continue current antibiotics and steroid therapy for now. The patient was started on IV cefepime and vancomycin pending cultures and clinical outcome.
[2018-04-22] MEDS ORDERED: SODIUM CHLORIDE 0.9% 1000ML 1,000 ML IV SCH (16:30)
[2018-04-22] MEDS ORDERED: Nursing to Pharmacy Communication ONE (16:48)
--- NOTE | 2018-04-22 20:42 | Hospitalist Progress Note ---
Date of Service April 22, 2018 Assessment & Plan (1) Multifocal pneumonia: IMPROVED TODAY. has had numerous treatment courses over 1-2 months with 3 separate hospital stays at [facility] for this. CT chest this admission with b/l pneumonia in multiple lobes. certainly at risk of atypical pathogens given immunocompromised state from lymphoma. other possibility is that of inflammatory lung disease or other entity. s/p bronch yesterday by Dr. Marr. await cultures from bronch; fungal and AFB stains negative. steroids started by Dr. Marr. cont nebs. day#2 cefepime with IV vanco. indeed brought CD w/ films from [facility] -- will get these into PACs. pt w/ dysphagia x 1month -could some of this be recurrent aspiration? will have speech see. may have additional bronch tomorrow by Dr Marr. (2) Acute respiratory failure with hypoxia: 2nd to multifocal pneumonia. IMPROVED. he could have mild chronic hypoxia given the clubbing on exam. (3) COPD (chronic obstructive pulmonary disease): with exacerbation. steroids, nebs, etc. IMPROVING. (4) Lymphoma: s/p chemo in the recent past. followed by Dr. Frank Lewis H/O. (5) Dysphagia: speech therapy consult see above discussion in pneumonia (6) DVT prophylaxis: add lovenox tomorrow after bronch is complete updated at bedside PT OT Subjective mentions he has had dysphagia for about 1 month points to his anterior neck as the location where "things get caught up" cough remains but he overall feels better today less dyspnea less wheeze off O2 now brought CDs w/ CT films from [facility] he mentions he had direct laryngoscopy by earlier this winter and it was normal Constitutional: no fever, no chills and no anorexia Cardiovascular: no chest pain Gastrointestinal: no abdominal pain Physical Exam Vital Signs (Past 24 Hours): Last Vital Signs Temp 36.6 C 04/22/18 19:14 Pulse 97 H 04/22/18 20:37 Resp 16 04/22/18 20:37 BP 134/93 04/22/18 19:14 Pulse Ox 90 04/22/18 20:37 Constitutional: well developed and well nourished; no acute distress and not ill appearing ENMT: external ear and nose normal, oropharynx normal Respiratory: Auscultation: + crackles (right ) and + wheezes (scattered b/l) Cardiovascular: RRR, no murmur, no edema Heart Sounds: normal S1 and normal S2 Vessels: posterior tibial pulses present and dorsalis pedis pulses present; no JVD Gastrointestinal (Abdomen): normal bowel sounds, soft, nontender, no hepatosplenomegaly Psychiatric: A+Ox3, euthymic affect (1) Lymphoma Lymphoma site: unspecified region Lymphoma type: unspecified type Qualified Code(s): C85.90 - Non-Hodgkin lymphoma, unspecified, unspecified site (2) COPD (chronic obstructive pulmonary disease) COPD type: COPD with acute exacerbation Qualified Code(s): J44.1 - Chronic obstructive pulmonary disease with (acute) exacerbation (3) Dysphagia Dysphagia type: unspecified Qualified Code(s): R13.10 - Dysphagia, unspecified
[2018-04-23] MEDS: ZOLPIDEM TARTRATE 10 MG TAB PO PRN ×2 (00:29→22:36)
[2018-04-23] MEDS: AZELASTINE - ORDER AWAITING ACTION SCH ×3 (01:06→16:32)
[2018-04-23] MEDS: LEVALBUTEROL 1.25MG/0.5ML NEB NEB SCH ×4 (02:13→20:21)
[2018-04-23] MEDS: VANCOMYCIN HCL 1,250 MG in SODIUM CHLORIDE 0.9% 250 ML IV SCH ×2 (03:49→20:05)
[2018-04-23] MEDS: CEFEPIME 1,000 MG in SYRINGE 0 ML IV SCH ×2 (05:57→19:59)
[2018-04-23 06:51] LABS: Creatinine Clr Calc Pharmacy 53.3 ml/min; Est GFR (Non-African American) 52.6
[2018-04-23] MEDS: SODIUM CHLOR 7% 4 ML NEB INH SCH ×4 (07:08→20:29)
--- NOTE | 2018-04-23 07:30 | Pre Anesthesia Assessment ---
Date of Service April 23, 2018 Pre Sedation Assessment Vital Signs Temp Pulse Pulse Resp BP BP Pulse Ox 04/23/18 07:15 76 16 95 04/23/18 04:33 36.5 C 70 18 116/70 94 04/23/18 00:00 98 H 04/22/18 23:01 36.8 C 81 18 102/50 L 92 04/22/18 20:37 97 H 16 90 04/22/18 19:21 86 16 90 04/22/18 19:14 36.6 C 85 18 134/93 89 L 04/22/18 16:00 36.6 C 94 H 84 18 108/59 L 90 04/22/18 13:37 88 18 91 04/22/18 13:00 91 04/22/18 07:46 74 18 96 Cardiovascular RRR, no murmur, no edema + peripheral pulses normal Respiratory normal respiratory effort, lungs clear to auscultation Pre-Sedation Airway Assessment Smoking Status: Former smoker Hx Sleep Apnea: No Hx Difficult Intubation: No Short, Thick Neck: No Thyromental Distance: < 3.5 Finger Breadths Oral Cavity: + WNL Mallampati Class: III ASA: ASA2 NPO Status Date of Last Intake of Fluids: 04/21/18 Time of Last Intake of Fluids: 00:00 Date of Last Intake of Solid Food: 04/21/18 Time of Last Intake of Solid Foods: 00:00 Notes The planned sedation has been discussed with the patient. Informed Consent was obtained. I have identified the patient, determined the appropriateness of sedation and have assessed the patient immediately prior to the procedure. All medicine(s) and interventions are by my order.
--- NOTE | 2018-04-23 07:30 | History & Physical Bridge Note ---
Date of Service April 23, 2018 History & Physical Bridge Note I have examined the patient, reviewed the History & Physical and in the interval since the performance of the History & Physical I have noted the following changes of clinical significance: no changes noted
[2018-04-23] MEDS: methylPREDNISolone 80 MG in SYRINGE 0 ML IV SCH ×2 (07:56→21:58)
[2018-04-23 08:51] LABS: Eosinophils # (auto) 0.01 K/uL (0-0.5); Eosinophils % (auto) 0.1 %; Hematocrit (blood only) 33.5 % (42-52); Hemoglobin 11.4 g/dL (14.0-18.0); Immature Granulocytes # (auto) 0.01 K/uL (0.00-0.02); Immature Granulocytes % (auto) 0.1 %; Lymphocytes # (auto) 0.17 K/uL (1.2-3.4); Lymphocytes % (auto) 2.4 %; Mean Platelet Volume 10.3 fL (7.4-10.4); Monocytes % (auto) 2.8 %; Neutrophils # (auto) 6.68 K/uL (1.4-6.5); Neutrophils % (auto) 94.6 %; Platelet Count 125 K/uL (130-400); RDW Coefficient of Variation 15.5 % (11.5-14.5); RDW Standard Deviation 47.8 fL (36.4-46.3); Red Blood Count 3.99 M/uL (4.7-6.1); White Blood Count 7.07 K/uL (4.8-10.8)
[2018-04-23 09:47] LABS: BUN Creatinine Ratio 29.4 (10-20); Calcium 8.9 mg/dl (8.5-10.1); Creatinine Clr Calc Pharmacy 58.4 ml/min; Est GFR (African American) 68.1; Est GFR (Non-African American) 58.8; Magnesium 2.2 mg/dl (1.8-2.4); Potassium 3.8 mmol/L (3.5-5.1)
[2018-04-23] MEDS ORDERED: MIDAZOLAM HCL 1 MG/ML 2ML VIAL IV STA (11:43)
[2018-04-23] MEDS ORDERED: OXYMETAZOLINE 0.05% 30 ML BTL ONE (11:43)
[2018-04-23] MEDS ORDERED: LIDOCAINE HCL 2% (LOCAL) INJ 50 ML VIAL INFIL STA (11:43)
[2018-04-23] MEDS ORDERED: LEVALBUTEROL HCL 1.25 MG/3 ML NEB NEB STA (11:43)
[2018-04-23] MEDS ORDERED: LIDOCAINE HCL VISCOUS SOLN 2% 15 ML UDC MT ONE (11:43)
[2018-04-23] MEDS ORDERED: LIDOCAINE 4% INH SOLN 4 ML BTL INH STA (11:43)
[2018-04-23] MEDS ORDERED: fentaNYL citrate 100 MCG/2 ML VIAL IV ONE (11:43)
--- NOTE | 2018-04-23 11:53 | Post Anesthesia Assessment ---
Date of Service April 23, 2018 Post Sedation Assessment Vital Signs Temp Pulse Pulse Resp BP BP Pulse Ox 04/23/18 11:45 90 16 112/74 92 04/23/18 11:40 86 18 132/75 98 04/23/18 11:35 97 H 22 115/67 96 04/23/18 11:30 74 16 126/81 94 04/23/18 11:25 76 18 142/74 H 95 04/23/18 11:20 81 18 134/85 95 04/23/18 08:00 72 04/23/18 07:32 36.6 C 76 18 125/64 95 04/23/18 07:15 76 16 95 04/23/18 04:33 36.5 C 70 18 116/70 94 04/23/18 00:00 98 H 04/22/18 23:01 36.8 C 81 18 102/50 L 92 04/22/18 20:37 97 H 16 90 04/22/18 19:21 86 16 90 04/22/18 19:14 36.6 C 85 18 134/93 89 L 04/22/18 16:00 36.6 C 94 H 84 18 108/59 L 90 04/22/18 13:37 88 18 91 04/22/18 13:00 91 Recovery Score Activity: Moves 4 extremities Respiration: Deep Breath/Cough Circulation: +/-20% PreAnes Value Consciousness: Arouseable (by name) Oxygen Saturation: O2 needed for >90% Post Anesthesia Score: 8 Discharge Sedation Level of Care: Fast Track Phase II Post Sedation Plan On clinical assessment, the patient appears to have tolerated the sedation without complications. Patient is recovering as anticipated. Patient will continue to be monitored by nursing and may be discharged when sedation discharge criteria are met per below protocol. Upon Completions of procedure and additional 15 minutes continue every 5 minute vital signs and the P.A.R. score; then discharge to a Phase I or Fast Track to Phase II per the following guidelines: * Discharge Patient to appropriate Phase II area if PAR is 8 or greater or return to pre- procedure baseline. The post - procedure orders will be as directed. * If PAR score is less than 8 or not return to pre-procedure baseline then patient will follow Phase I monitoring till PAR is reached for Phase II. The Phase I may be done in procedure room or may call to secure a Phase I area. * If naloxone or flumazenil are used for reversal, hold in Phase I for continued monitoring from when last reversal dose was given for a minimum of 60 minutes or longer pending the nurse and/or physician discretion of patient condition before discharge to Phase II. Please call the Sedation Physician to re-evaluate and complete post-note for discharge to Phase II area. Do NOT discharge from procedure sedation or Phase 1 until post- sedation evaluation note is complete by procedure /sedation MD Sedation Discharge Instructions to be given to the patient at discharge to home.
--- NOTE | 2018-04-23 11:55 | Post Operative Brief Note ---
Immediate Post Op Note v1 Date of Surgery April 23, 2018 Pre & Post Diagnosis Operation Date: 04/21/18 08:15 Pre-Op Diagnosis: PNEUMONIA Post-Op Diagnosis: PNEUMONIA Operation Date: 04/23/18 11:15 Pre-Op Diagnosis: PNEUMONIA - COUGH Post-Op Diagnosis: PNEUMONIA - COUGH Procedure Operation Date: 04/21/18 08:15 Actual Procedures p Bronchoscopy Radiology(Bilateral) - Tesfaye Marr MD Operation Date: 04/23/18 11:15 Actual Procedures p Bronchoscopy Radiology(Bilateral) - Tesfaye Marr MD Surgeon Tesfaye Marr MD Chemist Helper none Estimated Blood Loss 0 Findings Consistent with Post-Op Diagnosis Bronchopneumonia Complications none Disposition Accompanied Patient To Recovery: No Overlapping Procedure I was present for: the critical portions of procedure. I was immediately available: during the entire case. Back up surgeon: was not required during procedure.
[2018-04-23] MEDS: MAGNESIUM OXIDE 400 MG TAB PO SCH ×2 (13:02→21:57)
[2018-04-23] MEDS: PANTOprazole 40 MG TAB PO SCH (13:02)
--- NOTE | 2018-04-23 13:09 | Progress Note ---
DATE: 04/23/2018 PULMONARY MEDICINE PROGRESS NOTE Chart reviewed, the patient examined. SUBJECTIVE: The patient much improved and required a second bronchoscopic evaluation today with bronchoalveolar lavage. Despite patient's clinical improvement, there remained copious amounts of mucoviscous secretion from all lobar segments. Each lobar and segmental bronchus was individually cannulated and lavaged with normal saline and the aspirate once again sent for appropriate studies. The patient appeared to tolerate the procedure well and we cultured the secretions. I suspect the patient this weekend will be well enough to be discharged. LABORATORY DATA: His white count is 7000, H and H 11.4 and 33.5. No significant peripheral eosinophilia was noted. ASSESSMENT AND PLAN: Cultures including fungal and acid fast cultures are pending, from the previous bronchoscopic evaluation of the normal poonam was grown from the sputum. There is pinpoint growth from the bronchoalveolar lavage culture and it is re-incubating and we are waiting for that identification. Serologies once again are all pending.
[2018-04-23] MEDS: CITALOPRAM 40 MG TAB PO SCH (13:31)
--- NOTE | 2018-04-23 14:25 | Operative Report ---
DATE OF OPERATION: 04/23/2018 PROCEDURE: Fiberoptic bronchoscopy with bronchoalveolar lavage. INDICATIONS: Bronchopneumonia in a patient with lymphoma/immunocompromised marked mucus plugging. ANESTHESIA PREOPERATIVELY: None. ANESTHESIA DURING PROCEDURE: IV Versed 5 mg, IV fentanyl 100 mcg, 20 mL 2% Xylocaine spray above and below the cords, 4% viscous Xylocaine intranasally. Moderate conscious sedation was utilized and began at 1125 and completed at 1142. DESCRIPTION OF PROCEDURE: Fiberoptic bronchoscope was inserted into the left naris with minimal difficulty and passed to the level of the true vocal cords. The cords appear to approximate normally with phonation without evidence for lesions or paralysis. The area was anesthetized with 2% Xylocaine spray and the scope was then introduced in the trachea and right and left tracheobronchial tree. The camilla was sharp. The right main stem bronchus was explored initially and no endobronchial lesions were seen, but there remained a copious amount of mucoviscous secretion that was lavaged from right upper lobe, right middle lobe and right lower lobe until clear. The degree of inflammation seen on previous bronchoscopic examination was less and the procedure was better tolerated. The left tracheobronchial tree was explored and similar amount of copious mucoviscous secretion was lavaged, especially from the left upper lobe until clear. No endobronchial lesions were seen. The specimen was sent for appropriate studies. The patient was given a nebulizer treatment with Xopenex 1.25 mg and then transferred back to the medical floor, hemodynamically stable, no signs of respiratory compromise. Will await microbiological and cytological examination of the bronchial washings. I attest to the content of the Intraoperative Record and any orders documented therein. Any exception s are noted below.
--- NOTE | 2018-04-23 16:35 | Hospitalist Progress Note ---
Date of Service April 23, 2018 Assessment & Plan (1) Multifocal pneumonia: (2) Acute respiratory failure with hypoxia: (3) COPD (chronic obstructive pulmonary disease): (4) Lymphoma: (5) Dysphagia: (6) DVT prophylaxis: 67-year-old white male history of pneumonia CHF acute kidney injury admitted because of possible pneumonia Present of several hospital admissions, Multifocal pneumonia Acute respiratory failure with hypoxia: 2nd to multifocal pneumonia. chronic dysphagia x 1month s/p bronch today and [address] Marr. await cultures from bronch; fungal and AFB stains negative. sputum c+s showed : Streptococcus pneumoniae, will continue to follow sensitivity Has been on antibiotics cefepime and steroid w/ dysphagia x 1month -could some of this be recurrent aspiration? Possible COPD with exacerbation Continue antibiotic, steroid and nebulizer treatment hx of Lymphoma, s/p chemo in the recent past. followed by Dr. Frank Lewis DVT prophylaxis covered Subjective Back from bronchoscopy, report cough, however feel better, to not need oxygen for now, possible better on dyspnea, Denies fever and chill, Denies chest pain palpitation Denies nausea vomiting diarrhea constipation Denies urgency frequency and dysuria Respiratory: + cough, + dyspnea, + sputum production and + wheezing; no hemoptysis Physical Exam Vital Signs (Past 24 Hours): Last Vital Signs Temp 36.4 C L 04/23/18 15:00 Pulse 75 04/23/18 15:00 Resp 18 04/23/18 15:00 BP 100/59 L 04/23/18 15:00 Pulse Ox 94 04/23/18 15:00 Physical Exam: General Appearance: WD/WN, no apparent distress, Eyes: normal inspection, PERRL, EOMI, sclerae normal ENT: normal ENT inspection, hearing grossly normal, pharynx normal Neck: supple, no adenopathy, thyroid normal, no JVD, no carotid bruits, trachea midline Respiratory/Chest: Decreased breathing sound, occasional wheezing, no respiratory distress, no accessory muscle use, Cardiovascular: regular rate, rhythm, no JVD, no murmur Abdomen: normal bowel sounds, non tender, soft, no organomegaly, Extremities: normal range of motion, non-tender, normal inspection, Neurologic/Psychiatric: senior 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-XII nml as tested, no motor/sensory deficits, alert, normal mood/affect, oriented x 3 Skin: normal color, warm/dry, no rash Lymphatic: no adenopathy Results & Data Laboratory Results Laboratory Results - last 24 hr 04/23/18 04/23/18 04/23/18 05:44 05:44 09:08 WBC 7.07 RBC 3.99 L Hgb 11.4 L Hct 33.5 L MCV 84.0 MCH 28.6 MCHC 34.0 RDW Std Deviation 47.8 H RDW Coeff of Benedict 15.5 H Plt Count 125 L MPV 10.3 Immature Gran % (Auto) 0.1 Neut % (Auto) 94.6 Lymph % (Auto) 2.4 [place] % (Auto) 2.8 Eos % (Auto) 0.1 Baso % (Auto) 0.0 Immature Gran # (Auto) 0.01 Neut # (Auto) 6.68 H Lymph # (Auto) 0.17 L [place] # (Auto) 0.20 Eos # (Auto) 0.01 Baso # (Auto) 0.00 Sodium 138 Potassium 3.8 Chloride 108 H Carbon Dioxide 25 Anion Gap 5.0 BUN 37 H D Creatinine 1.37 1.25 Est Cr Clr Drug Dosing 53.3 58.4 Est GFR ( Amer) 61.0 68.1 Est GFR (Non-Af Amer) 52.6 58.8 BUN/Creatinine Ratio 29.4 H Glucose 130 H Calcium 8.9 Magnesium 2.2 Microbiology 04/21/18 08:30 Bronch Wash,Left Lower Lobe Gram Stain - Final 04/21/18 08:30 Bronch Wash,Left Lower Lobe Bronchoalveolar Lavage Culture - Final Streptococcus pneumoniae 04/20/18 Unknown Sputum, Expectorated Gram Stain - Final 04/20/18 Unknown Sputum, Expectorated Sputum Culture - Preliminary Streptococcus pneumoniae (1) COPD (chronic obstructive pulmonary disease) COPD type: COPD with acute exacerbation Qualified Code(s): J44.1 - Chronic obstructive pulmonary disease with (acute) exacerbation (2) Lymphoma Lymphoma type: unspecified type Lymphoma site: unspecified region Qualified Code(s): C85.90 - Non-Hodgkin lymphoma, unspecified, unspecified site (3) Dysphagia Dysphagia type: unspecified Qualified Code(s): R13.10 - Dysphagia, unspecified
[2018-04-23] MEDS: HEPARIN 100 UNIT/ML 5ML FLUSH FLUSH PRN ×2 (16:52→22:36)
[2018-04-23] MEDS ORDERED: VANCOMYCIN TROUGH ONE (19:30)
[2018-04-24] MEDS: AZELASTINE - ORDER AWAITING ACTION SCH ×3 (00:01→15:52)
[2018-04-24 00:54] LABS: HSV Type 1 DNA Not Detected (Not Detected); HSV Type 2 DNA Not Detected (Not Detected)
[2018-04-24] MEDS: LEVALBUTEROL 1.25MG/0.5ML NEB NEB SCH ×4 (02:19→20:06)
[2018-04-24] MEDS: HEPARIN 100 UNIT/ML 5ML FLUSH FLUSH PRN ×4 (06:11→17:16)
[2018-04-24] MEDS: CEFEPIME 1,000 MG in SYRINGE 0 ML IV SCH (06:11)
[2018-04-24] MEDS: SODIUM CHLOR 7% 4 ML NEB INH SCH ×2 (07:28→20:16)
[2018-04-24 07:35] LABS: CMV DNA Qnt Real Time PCR <200 IU/mL (<200); CMV DNA Quant PCR <2.30 log IU/mL (<2.30)
[2018-04-24 08:26] LABS: Albumin Level 2.9 gm/dl (3.4-5.0); BUN Creatinine Ratio 27.5 (10-20); Creatinine Clr Calc Pharmacy 61.9 ml/min; Est GFR (African American) 73.1; Magnesium 2.2 mg/dl (1.8-2.4); Potassium 3.6 mmol/L (3.5-5.1)
[2018-04-24 08:29] LABS: Albumin Globulin Ratio 0.8 (0.9-2); Bilirubin,Total 0.5 mg/dl (0.2-1); Globulin 3.4 gm/dl (2.5-4.0); Phosphorus 2.3 mg/dl (2.5-4.9); Total Protein 6.3 gm/dl (6.4-8.2)
[2018-04-24] MEDS: methylPREDNISolone 80 MG in SYRINGE 0 ML IV SCH (08:43)
[2018-04-24] MEDS: MAGNESIUM OXIDE 400 MG TAB PO SCH ×2 (08:43→21:57)
[2018-04-24] MEDS: PANTOprazole 40 MG TAB PO SCH (08:43)
[2018-04-24] MEDS: CITALOPRAM 40 MG TAB PO SCH (08:44)
--- NOTE | 2018-04-24 11:22 | Progress Note ---
DATE: 04/24/2018 PULMONARY MEDICINE PROGRESS NOTE Chart reviewed, patient examined. SUBJECTIVE: Much improved. Minimal cough. Starting to have some diarrheal stools. Previous bronchial washings grown out strep pneumoniae. To his knowledge, the patient has not received Pneumovax either the Polyvalent 23 vaccine or Prevnar. PLAN: 1. Polyvalent 23 vaccine followed by Prevnar. 2. Discontinue IV antibiotics. 3. Omnicef 300 mg p.o. b.i.d. (patient has been on cefepime and has shown no cross reaction to cephalosporins with his PENICILLIN ALLERGY). I believe patient can be converted to oral prednisone and be mobilized for possible discharge tomorrow. He is reticent given his past difficulties, but I believe we have identified the organism and he has undergone bronchoalveolar lavage x2 and is clinically markedly improved. I would like to get him a nebulizer for home use to use DuoNeb solution several times a day and the use of a flutter valve for home use. In addition, a maintenance inhaler, perhaps in the form of Symbicort 160/4.5 two puffs b.i.d. to be discharged on and to be followed in our clinic in 2-3 weeks' time for followup.
[2018-04-24] MEDS ORDERED: VANCOMYCIN TROUGH ONE (11:30)
--- NOTE | 2018-04-24 12:41 | Hospitalist Progress Note ---
Date of Service April 24, 2018 Assessment & Plan (1) Multifocal pneumonia: (2) Acute respiratory failure with hypoxia: (3) COPD (chronic obstructive pulmonary disease): (4) Lymphoma: (5) Dysphagia: (6) DVT prophylaxis: 67-year-old white male history of pneumonia CHF acute kidney injury admitted because of possible pneumonia Present of several hospital admissions, Multifocal pneumonia Acute respiratory failure with hypoxia: 2nd to multifocal pneumonia. chronic dysphagia x 1month s/p bronch x2 by Dr. Marr. per recs, Discontinue IV antibiotics. Omnicef 300 mg p.o. b.i.d., converted solumedrol to oral prednisone Increase activity, he need a nebulizer for home use to use DuoNeb , and cont Symbicort 160/4.5 two puffs b.i.d. Need to follow-up with Dr. Marr in 2-3 weeks w/ dysphagia x 1month -could some of this be recurrent aspiration? Speech evaluation ordered Possible COPD with exacerbation Continue antibiotic, steroid and nebulizer treatment hx of Lymphoma, s/p chemo in the recent past. followed by Dr. Frank Lewis DVT prophylaxis covered Subjective had 2nd bronchoscopy yesterday, Cough and mucus has been significantly improving, has been up and walk in the hallway Denies fever and chill, Denies chest pain palpitation Denies nausea vomiting diarrhea constipation Denies urgency frequency and dysuria Physical Exam Vital Signs (Past 24 Hours): Last Vital Signs Temp 36.6 C 04/24/18 11:28 Pulse 66 04/24/18 11:28 Resp 20 04/24/18 11:28 BP 125/76 04/24/18 11:28 Pulse Ox 91 04/24/18 11:28 Physical Exam: General Appearance: WD/WN, no apparent distress, Eyes: normal inspection, PERRL, EOMI, sclerae normal ENT: normal ENT inspection, hearing grossly normal, pharynx normal Neck: supple, no adenopathy, thyroid normal, no JVD, no carotid bruits, trachea midline Respiratory/Chest: Decreased breathing sound, occasional wheezing, bilateral lower lung rales Cardiovascular: regular rate, rhythm, no JVD, no murmur Abdomen: normal bowel sounds, non tender, soft, no organomegaly, Extremities: normal range of motion, non-tender, normal inspection, Neurologic/Psychiatric: contact lens edge buffer II-XII nml as tested, no motor/sensory deficits, alert, normal mood/affect, oriented x 3 Skin: normal color, warm/dry, no rash Lymphatic: no adenopathy Results & Data Laboratory Results Laboratory Results - last 24 hr 04/21/18 04/21/18 04/21/18 08:30 08:30 08:30 Sodium Potassium Chloride Carbon Dioxide Anion Gap BUN Creatinine Est Cr Clr Drug Dosing Est GFR ( Amer) Est GFR (Non-Af Amer) BUN/Creatinine Ratio Glucose Calcium Phosphorus Magnesium Total Bilirubin AST ALT Alkaline Phosphatase Total Protein Albumin Globulin Albumin/Globulin Ratio BAL A.galactomannan Ag Not Detected BAL A.galactomann Index 0.11 CMV Specimen Source Bronchial Wash CMV Qnt PCR IU/mL <200 CMV Qnt PCR log IU/mL <2.30 Herpes Virus Source Bronchial Wash HSV I DNA PCR Not Detected HSV II DNA PCR Not Detected 04/24/18 07:49 Sodium 143 Potassium 3.6 Chloride 110 H Carbon Dioxide 26 Anion Gap 7.0 BUN 33 H Creatinine 1.18 Est Cr Clr Drug Dosing 61.9 Est GFR ( Amer) 73.1 Est GFR (Non-Af Amer) 63.0 BUN/Creatinine Ratio 27.5 H Glucose 115 H Calcium 9.0 Phosphorus 2.3 L Magnesium 2.2 Total Bilirubin 0.5 AST 17 ALT 17 Alkaline Phosphatase 60 Total Protein 6.3 L Albumin 2.9 L Globulin 3.4 Albumin/Globulin Ratio 0.8 L BAL A.galactomannan Ag BAL A.galactomann Index CMV Specimen Source CMV Qnt PCR IU/mL CMV Qnt PCR log IU/mL Herpes Virus Source HSV I DNA PCR HSV II DNA PCR Microbiology 04/23/18 11:30 Bronch Wash,Right Lower Lobe Gram Stain - Final 04/23/18 11:30 Bronch Wash,Right Lower Lobe Bronchoalveolar Lavage Culture - Preliminary Scant normal poonam present; Final report to follow. 04/20/18 Unknown Sputum, Expectorated Gram Stain - Final 04/20/18 Unknown Sputum, Expectorated Sputum Culture - Preliminary Streptococcus pneumoniae 04/23/18 11:30 Bronch Wash,Right Lower Lobe Fungal Smear - Final 04/21/18 08:30 Bronch Wash,Left Lower Lobe Gram Stain - Final 04/21/18 08:30 Bronch Wash,Left Lower Lobe Bronchoalveolar Lavage Culture - Final Streptococcus pneumoniae (1) COPD (chronic obstructive pulmonary disease) COPD type: COPD with acute exacerbation Qualified Code(s): J44.1 - Chronic obstructive pulmonary disease with (acute) exacerbation (2) Lymphoma Lymphoma type: unspecified type Lymphoma site: unspecified region Qualified Code(s): C85.90 - Non-Hodgkin lymphoma, unspecified, unspecified site (3) Dysphagia Dysphagia type: unspecified Qualified Code(s): R13.10 - Dysphagia, unspecified
[2018-04-24] MEDS ORDERED: SODIUM PHOSPHATE 3 MMOL/1 ML INFUSION IV STA (12:46)
[2018-04-24] MEDS: PNEUMOCOCCAL ADMINISTRATION CHARGE ONE (13:24)
[2018-04-24] MEDS: PNEUMOCOCCAL POLYSACCHARIDES 25 MCG/0.5 ML VIAL/SYR IM ONE (13:25)
[2018-04-24] MEDS ORDERED: SODIUM PHOSPHATE 9 MMOL in SODIUM CHLORIDE 0.9% 250 ML IV ONE (14:00)
[2018-04-24] MEDS: LOPERAMIDE HCL 2 MG CAP PO PRN (19:13)
[2018-04-24] MEDS: predniSONE 20 MG TAB PO SCH ×2 (21:57→21:59)
[2018-04-24] MEDS: CEFDINIR 300 MG CAP PO SCH (21:57)
[2018-04-24] MEDS: ZOLPIDEM TARTRATE 10 MG TAB PO PRN (22:08)
[2018-04-25] MEDS: AZELASTINE - ORDER AWAITING ACTION SCH ×2 (00:12→08:21)
[2018-04-25] MEDS: LEVALBUTEROL 1.25MG/0.5ML NEB NEB SCH ×3 (02:50→13:43)
[2018-04-25] MEDS: HEPARIN 100 UNIT/ML 5ML FLUSH FLUSH PRN (06:10)
[2018-04-25 07:08] LABS: Creatinine Clr Calc Pharmacy 64.6 ml/min; Est GFR (Non-African American) 66.4
[2018-04-25] MEDS: SODIUM CHLOR 7% 4 ML NEB INH SCH (07:19)
[2018-04-25] MEDS: CITALOPRAM 40 MG TAB PO SCH (08:22)
[2018-04-25] MEDS: CEFDINIR 300 MG CAP PO SCH (08:23)
[2018-04-25] MEDS: PANTOprazole 40 MG TAB PO SCH (08:23)
[2018-04-25] MEDS: MAGNESIUM OXIDE 400 MG TAB PO SCH (08:23)
[2018-04-25] MEDS: predniSONE 20 MG TAB PO SCH (08:24)
--- NOTE | 2018-04-25 12:15 | Discharge Summary ---
Date of Service April 25, 2018 Admission HPI Per Admitting Provider 67 y/o M who was sent her from Dr. Hutton's office for hypoxia. Pt was being seen for the first time in that office. Per Dr. Hutton, pt was admitted for 5 days to [facility] where he was tx for PNA and DAYDAY. He was readmitted on 03/16 for 5 days for strep PNA and was tx with levaquin. He was admitted again on 03/25 and noted to have a CT with an infiltrate and some sort of irregular opacity in RUL/RML. He was again tx with levaquin. Pt does not have this paperwork with him, but had brought it to Dr. Hutton's office and he relayed this info to me verbally. Pt was sent here for c/o hypoxia in the office of 84% on RA. Pt tells me he feels that he is getting worse again. He has had a cough since January when he started with the initial admission at [facility]. He states it will get better initially after tx, but then return until he has another round of abx. At this point, he feels that his cough is the worse it has been. It never fully resolves after tx. He is producing green sputum. He states he is SOB at times, but more from coughing. He gets chest pain "in my lungs" from coughing. He did have an episode of n/v today while driving to [place] for his appt, but generally this is not an issue. He does have a poor appetite. Pt just finished a 6 months course of chemo for lymphoma with Dr. Marie of [facility]. He is not certain what type of lymphoma. He states he has a low aug[place] etite recently with this. He states he has lost 50 lbs since starting chemo in August. At one point he had put some weight back on, but this has recently been lost again. Pt has a port in place. Pt states he was dx with COPD during this course of tx, but he states he was still being tx for PNA and is not certain if this is a real dx for him. He does use his inhalers though. Pt denies fever, abd pain, c/d, LE pain or swelling. Principal Diagnosis no Discharge Data Allergies Allergy/AdvReac Type Severity Reaction Status Date / Time Penicillins Allergy Unknown UNKNOWN Verified 09/07/17 05:35 procaine Allergy Unknown UNKNOWN Verified 09/07/17 05:35 Consultations 04/20/18 15:38 Consult Pulmonology Routine Procedures Performed Operation Date: 04/21/18 08:15 Actual Procedures p Bronchoscopy Radiology(Bilateral) - Tesfaye Marr MD Operation Date: 04/23/18 11:15 Actual Procedures p Bronchoscopy Radiology(Bilateral) - Tesfaye Marr MD Ordered Studies 04/21/18 08:57 CT chest w con Routine Hospital Course (1) Multifocal pneumonia: (2) Acute respiratory failure with hypoxia: (3) COPD (chronic obstructive pulmonary disease): (4) Lymphoma: (5) Dysphagia: (6) DVT prophylaxis: 67-year-old white male history of pneumonia CHF acute kidney injury admitted because of possible pneumonia Present of several hospital admissions, Multifocal pneumonia sputum culture and blood culture positive for strep pneumonie, patient is immunocompromised with history of lymphoma recent chemo treatment Acute respiratory failure with hypoxia: 2nd to multifocal pneumonia, resolved chronic dysphagia x 1month s/p bronch x2 by Dr. Marr. per recs, Discontinue IV antibiotics. Omnicef 300 mg p.o. b.i.d.,Dr. Marr recommend about totally 7 days of antibiotic upon discharge converted solumedrol to oral prednisone, patient has been declining oral prednisone, he declined oral prednisone in the previous discharge to, the reason for declining is because stomach upset After Dr. Marr discussed with him he agreed to continue to take oral prednisone upon discharge, we have advised him to take this medicine after snac k, and take oral Protonix Increase activity, he need a nebulizer for home use to use DuoNeb, prescription given to patient upon discharge, and cont Symbicort 160/4.5 two puffs b.i.d. Need to follow-up with Dr. Marr in 2-3 weeks w/ dysphagia x 1month -could some of this be recurrent aspiration? Speech evaluation ordered and seen, possible need to have video studies as outpatient with PCP, PCP please follow-up Possible COPD with exacerbation Continue antibiotic, steroid and nebulizer treatment hx of Lymphoma, s/p chemo in the recent past. followed by Dr. Frank Lewis DVT prophylaxis covered Total Time Total Time Spent Total Time Spent (In Minutes): 35 Total Time Includes: Examination of the Patient, Discharge Planning, Medication Reconciliation and Communication With Other Providers Discharge Plan Discharge Items Patient Disposition: Home - Self-Care Reason For Visit: PNEUMONIA - COUGH Discharge Diagnosis: pneumonia Condition: Fair Discharge Goals: Decrease discomfort, Diagnostic testing, Improve disease control, Improve function, Increase independence, Learn about illness and Prevent disease Activity: Resume your previous activity Non-emergency contact: Primary Care Provider and Supervisor [facility] Call non-emergency contact if: you have any medication questions Follow-up/Referrals: Jimmy Caldera DO [Primary Care Provider] - Diet: Heart Healthy and Low Sodium (2gm) Addtl Provider Instructions: you have pneumonia you have Acute respiratory failure with hypoxia upon admission which is resolved, Prednisone for 8 days You need to continue oral antibiotic for 7 days I ordered a nebulizer machine for you You need to follow-up with Dr. Marr in 2-3 weeks You need to follow-up the introduction from speech evaluation ordered you have hx of Lymphoma, please continue f/u with Dr. Frank Lewis you need to follow up with your primary care physician in 1 week, - take medication as instructed, never overdose or any misuse, or take with alcohol, because misuse of medicine may cause organ damage or , call me, or your primary care physician if have questions of discharge medicaitons. - call your primary care physician, or go to local emergency room if has any fever/chill, chest pain, shortness of breathing, nausea/vomiting/abdominal pain, facial droop/slurry speech/local weakness, or if has any questions. - fall precaution - diet as instructed - you need to follow up with your subspecialist, such as Dr. Marr Prescriptions: New loperamide 2 mg Capsule 2 mg PO Q6H PRN (Reason: diarrhea) 7 Days Qty: 10 RF: 0 prednisone 20 mg Tablet 20 mg PO BID 8 Days Qty: 16 RF: 0 magnesium oxide 400 mg (241.3 mg magnesium) Tablet 400 mg PO BID 7 Days Qty: 14 RF: 0 cefdinir 300 mg Capsule 300 mg PO Q12 7 Days Qty: 14 RF: 0 levalbuterol HCl 1.25 mg/0.5 mL Solution For Nebulization 1.25 mg NEB Q6R 10 Days Qty: 30 RF: 0 Continued CITALOPRAM HYDROBROMIDE 40 MG tablet 20 mg PO QAM Qty: 0 RF: 0 Pantoprazole (Protonix) 40 MG tablet 40 mg PO QAM Qty: 0 RF: 0 ALBUTEROL HFA (VENTOLIN HFA) 200 PUFFS/18,000 MCG AEROSOL,SOLN 2 puff Inhalation Q6H PRN (Reason: PRN) Qty: 1 RF: 0 ONDANSETRON HCL (ZOFRAN) 8 MG tablet 8 mg PO PRN PRN (Reason: Nausea) Qty: 0 RF: 0 zolpidem [Ambien] 10 mg Tablet 10 mg PO RF: 0 azelastine 0.15 % (205.5 mcg) Thayer,Non-Aerosol 2 spray INTRANASAL BID RF: 0 Stand-Alone Forms: [facility] Discharge Orders: Discharge Order (Routine); Ordered 04/25/18 Ordered By: Ac Copeland Admission Data Admit Date/Time: 04/20/18 15:12 Attending Provider: Ac Copeland Admit Provider: April Sunshine Primary Care Provider: Jimmy Caldera V Other Providers: Tesfaye Marr ; Graeme Kemp Service: Telemetry
[2018-04-25] MEDS: LOPERAMIDE HCL 2 MG CAP PO PRN (13:01)
--- NOTE | 2018-04-25 13:38 | Progress Note ---
DATE: 04/25/2018 PULMONARY MEDICINE PROGRESS NOTE Chart reviewed, the patient examined. SUBJECTIVE: He is doing well, occasionally has paroxysms of coughing. I was concerned about taking prednisone because in the past he attributed his diarrhea, epigastric discomfort and other symptoms to the prednisone. He was not on anything to protect the stomach either H2 antagonist or proton pump inhibitors. We have grown strep pneumococcus from his sputum and from the bronchial washings. He is on adequate coverage. I did revaccinate him as a booster for pneumococcal disease, and down the road, we will check his pneumococcal antibody titers, he states he did receive a pneumococcal vaccine in the past, but clearly given his immunosuppression and level of immunocompetence, this did not protect him 100% and indeed what we are dealing with was a streptococcal infection by culture. I think he can go home. I think if we send him home with a nebulizer with DuoNeb solution every 4 hours as needed along with an 8-day prednisone taper and protect his GI tract with either Prevacid or Prilosec or consider an H2 antagonist while he is on the prednisone, this should be helpful. We will be happy to see him in the clinic in 2-3 weeks' time in followup.
[2018-04-25] MEDS: PNEUMOCOCCAL POLYSACCHARIDES 25 MCG/0.5 ML VIAL/SYR IM ONE (14:49)
[2018-04-25] MEDS: PNEUMOCOCCAL ADMINISTRATION CHARGE ONE (14:52)
[2018-04-25 17:52] LABS: Aspergillus Ag Index 0.08 (<0.50); Aspergillus Antigen, Serum Not Detected (Not Detected); Aspergillus Flavus Negative (Negative); Aspergillus Niger Negative (Negative); Immunoglobulin IgE <2 KU/L (<115)
== END 2018-04-25 15:10 | disposition home or self-care (01) | DRG 166 ==
LOC: SUATTDRO 15:12 → 4E 15:12 → 2W 15:56

== ENCOUNTER 2019-01-26 10:22 | Inpatient (IN) ==
[2019-01-26] MEDS ORDERED: POLYETHYLENE (MIRALAX) 17 GM PACK PO PRN (14:52)
[2019-01-26] MEDS ORDERED: ACETAMINOPHEN 325 MG TAB PO PRN (14:52)
[2019-01-26] MEDS ORDERED: ALUMINUM/MAGNESIUM SUSP 30 ML UDC PO PRN (14:52)
[2019-01-26] MEDS ORDERED: MAGNESIUM HYDROXIDE SUSP 30 ML UDC PO PRN (14:52)
[2019-01-26] MEDS ORDERED: ZOLPIDEM TARTRATE 10 MG TAB PO PRN (14:55)
--- NOTE | 2019-01-26 15:26 | History & Physical Report ---
Date of Service January 26, 2019 Assessment & Plan (1) Acute deep vein thrombosis (DVT): 68-year-old male with a history of lymphoma/Waldenstrm's macroglobulinemia, recurrent pneumonia, chronic sinusitis, hypogammaglobinemia on monthly IVIG and atrial flutter presents with left lower extremity DVT Lower extremity DVT, extending from left calf to common femoral No obvious provoking causes. Multiple coagulation risk in the setting of h/o Waldenstrom's, elevated IgM and globulins. Additionally, patient is on IVIG therapy which may be a risk factor Hypercoagulable panel ordered Treating with therapeutic Lovenox, case management please review approval for NOAC. Would like to start Eliquis. Lymphoma/Waldenstrm's macroglobulinemia In remission per patient Chest CT scan shows stable pulmonary nodules and lymph nodes globulin is elevated, recent IgM was elevated at 760, concern for hyperviscosity? Right neck tenderness, without significant lymphadenopathy Suspect sublingual salivary stoneworse with food Continue to follow considering past medical history of lymphoma Chronic sinusitis Followed by ENT, continue prophylactic levofloxacin 250 mg twice daily Hypogammaglobulinemia Diagnosed by Dr. Casarez, [facility] allergy Receives monthly IVIG Atrial flutter Treated with ablation No rate controlling medications, no chronic anticoagulation History of COPD No controlling inhalers, well controlled per patient History of recurrent pneumonia, strep pneumoniae Anxiety Continue home regimendiazepam 10 mg every morning, Ambien nightly GERD Continue Protonix CODE STATUSfull FENregular diet DVT prophylaxistherapeutic Lovenox for DVT DispositionMedSurg telemetry (2) Lymphoma: (3) Waldenstrom macroglobulinemia: (4) Hypogammaglobulinemia: (5) Anxiety: (6) GERD (gastroesophageal reflux disease): (7) Afib: (8) COPD, severe: History of Present Illness Primary Care Provider: Allan Kaur M.D. 68-year-old male with a history of non-Hodgkin's Lymphoma/Waldenstrm's macroglobulinemia, recurrent pneumonia, chronic sinusitis, hypogammaglobinemia, atrial flutter, COPD presents with left lower extremity DVT found on outpatient doppler. Patient was sent over as a direct admit. He has a h/o chronic bilateral lower extremity edema, but states that recently his left leg has become progressively more edematous, warm and painful. The patient states that he completed treatment for lymphoma approximately 1 year ago. Beginning last year, the patient has had a history of recurrent bacterial sinusitis and pneumonia, severe enough requiring multiple hospitalization and bronchoscopy. Patient states that his breathing is currently stable and he has not required treatment with inhalers for so time now. The patient does endorses a h/o smoking, but states that he quit greater than 20 years ago. Patient was seen by allergy/immunology and has been treated with IVIG. Allergies Allergy/AdvReac Type Severity Reaction Status Date / Time Penicillins Allergy Unknown PASSED OUT Verified 01/25/19 10:12 procaine Allergy Unknown PASSED OUT Verified 01/25/19 10:12 Home Medications Home Medications Medication Instructions Recorded Confirmed Type zolpidem [Ambien] 10 mg PO HS PRN 04/20/18 01/26/19 History pantoprazole [Protonix] 40 mg PO BID 06/23/18 01/26/19 History ondansetron HCl 8 mg tablet 8 mg PO TID PRN #30 tab 11/01/18 01/26/19 Rx furosemide 20 mg PO Q OTHER DAY 11/22/18 01/26/19 History pseudoephedrine HCl [Sudafed 12 120 mg PO Q12H PRN 11/22/18 01/26/19 History Hour] chlorpheniramine maleate 1 tab PO BID 12/16/18 01/26/19 History diazepam 10 mg PO DAILY 01/17/19 01/26/19 History levofloxacin 250 mg PO BID 01/17/19 01/26/19 History Past Med/Surg History Medical History Acute respiratory failure with hypoxia Afib Anxiety Atrial fibrillation NO PROBLEMS RECENTLY. NO MEDS. 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 Atrial flutter H/O ~10 YEARS AGO Chronic obstructive pulmonary disease Chronic sinusitis sinus endoscopy with ballooning/packing COPD (chronic obstructive pulmonary disease) COPD, severe Dysphagia Encounter for pre-operative examination GERD (gastroesophageal reflux disease) GERD (gastroesophageal reflux disease) Hypertrophy of both inferior nasal turbinates Hypoxia Lymphoma Waldenstrom Multifocal pneumonia Nasal septal perforation Non-Hodgkin lymphoma Pneumonia X4 SINCE JAN 2018 - JUNE 2018. 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 Beliefs That Will Affect Care: None marital status: Current Living Situation: Spouse current occupational status: retired Other Information That Helps Us Care for You: No Feels Safe at Home: Yes Smoking Status: Former smoker Tobacco Type: cigarettes ; Do You Dip or Chew Tobacco: No ; Smoking End Date: 30 years ago ; Number of Years Since Quit: 20 ; Second Hand Exposure: No ; Tobacco Cessation Education Requested by Patient: No Hx Alcohol Use: Yes Alcohol type: beer Hx Substance Use: No Review of Systems Constitutional: no fever, no chills and no sweats Ear, Nose, Mouth, Throat: + nasal congestion, + post nasal drip, + nasal obstruction, + sinus pain/pressure, + sore throat (subligual pain, worse with eating ) and + pain with swallowing Respiratory: no cough, no chest congestion, no dyspnea and no wheezing Cardiovascular: + edema and + calf pain; no chest pain, no dyspnea at rest and no dyspnea on exertion Gastrointestinal: no abdominal pain, no nausea and no vomiting Physical Exam Constitutional: WD/WN, vitals as above Eyes: PERRL, conjunctivae normal, anicteric sclerae ENMT: external ear and nose normal, oropharynx normal Small hypopigmented sublingual lesion. Tenderness with palpation of right neck. No significant LAD. Neck: trachea midline, no thyromegaly Respiratory: normal respiratory effort, lungs clear to auscultation Cardiovascular: RRR, no murmur, no edema Gastrointestinal (Abdomen): normal bowel sounds, soft, nontender, no hepatospl enomegaly Musculoskeletal: no cyanosis or clubbing, extremities motor strength 5/5 bilateral lower extremity edema L>R, shiny tight skin noted on left, L warmer than right, calf tenderness present on the left Skin: no rashes, warm and dry Neurologic: PERRL, EOMI, accommodation nl, no face palsy, no dysarthria Psychiatric: A+Ox3, euthymic affect Results & Data Vital Signs (Past 12 Hours) Vital Signs Temp Pulse Resp BP Pulse Ox 01/26/19 12:41 36.6 C 86 18 126/73 96 Code Status & VTE Plan VTE Prophylaxis Plan VTE Prophylaxis will be ordered: Yes Supervising Physician Co-Signing Physician Notes Resident Physician Supervision Note: I independently interviewed and examined the patient and verified the [place] history and physical, reviewed labs and image studies, discussed the case with the resident Dr. Jerod Campo and agree with the findings and care plan. Resident Activity Tracking Resident Involvement: Resident Care Provided Care Provided: Adult Hospital Medicine (1) Lymphoma Lymphoma site: unspecified region Lymphoma type: unspecified type Qualified Code(s): C85.90 - Non-Hodgkin lymphoma, unspecified, unspecified site
[2019-01-26] MEDS ORDERED: FUROSEMIDE 20 MG TAB PO SCH (16:00)
[2019-01-26] MEDS ORDERED: ENOXAPARIN 150 MG/ML SYR SQ SCH (17:00)
[2019-01-26] MEDS ORDERED: levoFLOXacin 250 MG TABLET PO SCH (17:00)
[2019-01-26] MEDS: levoFLOXacin 500 MG TAB PO SCH (17:27)
[2019-01-26] MEDS: PANTOprazole 40 MG TAB PO SCH (21:33)
[2019-01-26] MEDS: guaiFENesin 600 MG TABCR PO SCH (21:33)
[2019-01-27] MEDS ORDERED: APIXABAN 5 MG TABLET PO SCH
[2019-01-27 07:22] LABS: Basophils # (auto) 0.07 K/uL (0-0.2); Basophils % (auto) 1.5 %; Eosinophils # (auto) 0.41 K/uL (0-0.5); Eosinophils % (auto) 8.9 %; Hematocrit (blood only) 39.1 % (42-52); Hemoglobin 12.8 g/dL (14.0-18.0); Immature Granulocytes # (auto) 0.01 K/uL (0.00-0.02); Immature Granulocytes % (auto) 0.2 %; Lymphocytes % (auto) 10.9 %; Mean Corpuscular Hemoglobin 27.1 pg (25-34); Mean Corpuscular Hgb Conc 32.7 g/dL (32-36); Mean Corpuscular Volume 82.8 fL (80-100); Mean Platelet Volume 9.5 fL (7.4-10.4); Monocytes # (auto) 0.34 K/uL (0.11-0.59); Monocytes % (auto) 7.4 %; Neutrophils # (auto) 3.27 K/uL (1.4-6.5); Neutrophils % (auto) 71.1 %; Platelet Count 136 K/uL (130-400); RDW Coefficient of Variation 16.1 % (11.5-14.5); RDW Standard Deviation 48.5 fL (36.4-46.3); Red Blood Count 4.72 M/uL (4.7-6.1)
[2019-01-27 07:37] LABS: Partial Thromboplastin Ratio 1.3; Partial Thromboplastin Time 36.2 Seconds (21.0-31.0); Prothrombin Time 10.2 Seconds (9.0-12.0)
[2019-01-27] MEDS: PANTOprazole 40 MG TAB PO SCH (07:50)
[2019-01-27] MEDS: guaiFENesin 600 MG TABCR PO SCH (07:51)
[2019-01-27] MEDS: levoFLOXacin 500 MG TAB PO SCH (07:51)
[2019-01-27 08:07] LABS: Albumin Globulin Ratio 0.7 (0.9-2); Albumin Level 2.7 gm/dl (3.4-5.0); BUN Creatinine Ratio 9.4 (10-20); Bilirubin,Total 0.8 mg/dl (0.2-1); Calcium 9.5 mg/dl (8.5-10.1); Creatinine Clr Calc Pharmacy 56.2 ml/min; Est GFR (Non-African American) 50.9; Globulin 3.9 gm/dl (2.5-4.0); Potassium 3.7 mmol/L (3.5-5.1); Total Protein 6.6 gm/dl (6.4-8.2)
[2019-01-27] MEDS ORDERED: diazePAM 5 MG TABLET PO PRN (09:00)
[2019-01-27] MEDS ORDERED: LORATADINE 10 MG TAB PO SCH (09:00)
[2019-01-27 15:28] VITALS: TEMP 98.1; O2SAT 96
[2019-01-27] MEDS ORDERED: APIXABAN 5 MG TABLET PO ONE (17:00)
[2019-01-27 17:08] VITALS: BP 130/75; PULSE 86
--- NOTE | 2019-01-27 17:17 | Discharge Summary ---
Date of Service January 27, 2019 Admission HPI Per Admitting Provider 68-year-old male with a history of non-Hodgkin's Lymphoma/Waldenstrm's macroglobulinemia, recurrent pneumonia, chronic sinusitis, hypogammaglobinemia, atrial flutter, COPD presents with left lower extremity DVT found on outpatient doppler. Patient was sent over as a direct admit. He has a h/o chronic bilateral lower extremity edema, but states that recently his left leg has become progressively more edematous, warm and painful. The patient states that he completed treatment for lymphoma approximately 1 year ago. Beginning last year, the patient has had a history of recurrent bacterial sinusitis and pneumonia, severe enough requiring multiple hospitalization and bronchoscopy. Patient states that his breathing is currently stable and he has not required treatment with inhalers for so time now. The patient does endorses a h/o smoking, but states that he quit greater than 20 years ago. Patient was seen by allergy/immunology and has been treated with IVIG. Admission Exam Per Admitting Provider Constitutional: WD/WN, vitals as above Eyes: PERRL, conjunctivae normal, anicteric sclerae ENMT: external ear and nose normal, oropharynx normal Small hypopigmented sublingual lesion. Tenderness with palpation of right neck. No significant LAD. Neck: trachea midline, no thyromegaly Respiratory: normal respiratory effort, lungs clear to auscultation Cardiovascular: RRR, no murmur, no edema Gastrointestinal (Abdomen): normal bowel sounds, soft, nontender, no hepatosplenomegaly Musculoskeletal: no cyanosis or clubbing, extremities motor strength 5/5 bilateral lower extremity edema L>R, shiny tight skin noted on left, L warmer than right, calf tenderness present on the left Skin: no rashes, warm and dry Neurologic: PERRL, EOMI, accommodation nl, no face palsy, no dysarthria Psychiatric: A+Ox3, euthymic affect Principal Diagnosis DVT LLE Discharge Exam Constitutional WD/WN, vitals as above Eyes PERRL, conjunctivae normal, anicteric sclerae ENMT external ear and nose normal, oropharynx normal Neck trachea midline, no thyromegaly Respiratory normal respiratory effort, lungs clear to auscultation Cardiovascular RRR, no murmur, no edema Gastrointestinal (Abdomen) normal bowel sounds, soft, nontender, no hepatosplenomegaly Musculoskeletal Extremities: + lower leg abnormality Left (LLE swollen, warm to touch, nontender. ) Neurologic PERRL, EOMI, accommodation nl, no face palsy, no dysarthria Psychiatric A+Ox3, euthymic affect Discharge Data Allergies Allergy/AdvReac Type Severity Reaction Status Date / Time Penicillins Allergy Unknown PASSED OUT Verified 01/25/19 10:12 procaine Allergy Unknown PASSED OUT Verified 01/25/19 10:12 Consultations 01/26/19 14:54 Consult Case Management - Discharge Planning Routine 01/27/19 15:12 Consult Oncology Routine Hospital Course (1) Acute deep vein thrombosis (DVT): 68-year-old male with a history of lymphoma/Waldenstrm's macroglobulinemia, recurrent pneumonia, chronic sinusitis, hypogammaglobinemia on monthly IVIG and atrial flutter presents with left lower extremity DVT Lower extremity DVT, extending from left calf to common femoral No obvious provoking causes. Multiple coagulation risk in the setting of h/o Waldenstrom's, elevated IgM and globulins. Additionally, patient has been treated with IVIG therapy which may be a risk factor Hypercoagulable panel was ordered. Treated with therapeutic Lovenox -Transitioned to oral Eliquis prior to discharge. -10mg Eliquis given prior to DC, patient given 10mg Eliquis to take in the AM at home tomorrow. -Discharged with Eliquis 10mg BID x 7 total days then 5mg BID until resolution of DVT. -Patient to contact and follow up with his Heme/Onc Dr. Willett in the outpatient setting to discuss anticoagulation. Lymphoma/Waldenstrm's macroglobulinemia In remission for past year per patient. Chest CT scan showed stable pulmonary nodules and lymph nodes globulin was elevated, recent IgM was elevated at 760, noted concern for hyperviscosity. -Patient to follow up with his Heme/Onc Dr. Willett in the outpatient setting. Right neck tenderness, without significant lymphadenopathy Suspected sublingual salivary stoneworse with food Continued to follow considering past medical history of lymphoma -Patient noted resolution of pain. Chronic sinusitis Followed by ENT, continued prophylactic levofloxacin 250 mg twice daily Hypogammaglobulinemia Diagnosed by Dr. Casarez, [facility] allergy Receives monthly IVIG, last received 2-3 weeks ago. Atrial flutter Treated with ablation No rate controlling medications, no chronic anticoagulation prior to admission History of COPD No controlling inhalers, well controlled per patient History of recurrent pneumonia, strep pneumoniae Anxiety Continued home regimendiazepam 10 mg every morning, Ambien nightly GERD Continued Protonix CODE STATUSfull FENregular diet DVT prophylaxistherapeutic Lovenox for DVT while inpatient. DispositionDischarge home (2) Lymphoma: (3) Waldenstrom macroglobulinemia: (4) Hypogammaglobulinemia: (5) Anxiety: (6) GERD (gastroesophageal reflux disease): (7) Afib: (8) COPD, severe: Total Time Total Time Spent Total Time Spent (In Minutes): see attending attestation Discharge Plan Discharge Items Patient Disposition: Home - Self-Care Reason For Visit: LEFT LOWER EXTREMITY DVT Discharge Diagnosis: Left lower extremity DVT Activity: Per Instructions section Non-emergency contact: Primary Care Provider and Oncologist Call non-emergency contact if: you have any medication questions and your symptoms worsen Follow-up/Referrals: Allan Kaur M.D. [Primary Care Provider] - Diet: Regular Addtl Attending Provider Instructions: Mr. Castillo, you were seen and evaluated at [facility] from 01/26/19 to 01/27/19 for a deep vein thrombosis found in your L leg by ultrasound imaging. While here you were treated therapeutically with Lovenox. You are being discharged on a blood thinner medication (Eliquis). Please take it as prescribed. -Eliquis 5mg tablets -Take 10mg (2 pills) twice a day for the next 6 days -After the 6 days, take 5mg (1 pill) for the remainder of the month. -Please contact and set up an appointment with your Heme/Onc Dr. Willett for continued treatment of your DVT and anticoagulation needs. -If you have any questions, please contact your Heme/Onc Dr. Willett. -Please follow up with your PCP within the next 1 week. Pending Studies at Discharge: No Stand-Alone Forms: My [employer], Smoking Cessation Medications and DC Order Prescriptions: New Eliquis 5 mg tablet 5 mg PO BID 30 Days Qty: 72 RF: 0 Continued ondansetron HCl 8 mg tablet 8 mg PO TID PRN (Reason: nausea and vomiting) Qty: 30 RF: 1 chlorpheniramine maleate 1 tab PO BID RF: 0 zolpidem [Ambien] 10 mg Tablet 10 mg PO HS PRN (Reason: Sleep) RF: 0 pseudoephedrine HCl [Sudafed 12 Hour] 120 mg Tablet Extended Release 120 mg PO Q12H PRN (Reason: Congestion) RF: 0 furosemide 20 mg tablet 20 mg PO Q OTHER DAY RF: 0 pantoprazole [Protonix] 40 mg Tablet,Delayed Release (Dr/Ec) 40 mg PO BID RF: 0 diazepam 10 mg Tablet 10 mg PO DAILY RF: 0 levofloxacin 500 mg tablet 250 mg PO BID RF: 0 Discharge Orders: Discharge Order (Routine); Ordered 01/27/19 Ordered By: Neo Hoffman Admission Data Admit Date/Time: 01/26/19 12:01 Attending Provider: Niyah Dubose Admit Provider: Abelardo Huerta Primary Care Provider: Allan Kaur Other Providers: Jeff Willett Other Interventions: Discharge Summary Assessment (RN) Last Done: 01/27/19 17:06 DC Date/Time DO NOT enter until pt leaves facility: 01/27/19 18:52 Supervising Physician Co-Signing Physician Notes Resident Physician Supervision Note: I independently interviewed and examined the patient and verified the [place] history and physical, reviewed labs and image studies, discussed the case with the resident Dr. Hoffman and agree with the findings and care plan. Time spent in discharge 35 min Resident Activity Tracking Resident Involvement: Resident Care Provided Care Provided: Adult Hospital Medicine
[2019-02-02 13:51] LABS: Anti Cardiolipin Ab IgG <14 GPL; Anti Cardiolipin Ab IgM 49 MPL; Anti-Cardiolipin Ab IgA <11 APL; Anti-Thrombin III Activity 104 % activity (80-120); B2 Glycoprotein IgA <9 SAU (<=20); B2 Glycoprotein IgG <9 SGU (<=20); B2 Glycoprotein IgM <9 SMU (<=20); PTT LA Screen 43 sec (<=40); Protein S Functional(Activity) 85 % (70-150)
[2019-02-03 08:25] LABS: Lupus Hex Phase (Rflxdonotord) Weak Positive (Negative)
== END 2019-01-27 18:52 | disposition home or self-care (01) | DRG 301 ==
LOC: 2W 12:01

== ENCOUNTER 2022-02-03 10:37 | Inpatient (IN) ==
--- NOTE | 2022-01-06 13:48 | PAT Medication Instructions ---
Medication Instructions Date of Service January 06, 2022 Home Medications Medication Instructions Recorded ondansetron HCl 8 mg tablet 8 mg PO TID PRN nausea and 11/01/18 vomiting #30 tabs comp.stocking,thigh,long,large #2 ea 02/01/19 zolpidem 10 mg tablet (Ambien) 10 mg PO HS PRN pantoprazole 40 mg tablet,delayed release (Protonix) 40 mg PO QAM ondansetron HCl 8 mg tablet 8 mg PO TID PRN comp.stocking,thigh,long,large apixaban 5 mg tablet (Eliquis) 5 mg PO BID citalopram 40 mg tablet (Celexa) 40 mg PO QAM triamcinolone acetonide 0.1 % topical ointment 1 applic topical BID PRN azithromycin 250 mg tablet 250 mg PO UD famotidine 20 mg tablet 20 mg PO HS ibrutinib 280 mg tablet (Imbruvica) 280 mg PO HS Continue as directed azithromycin 250 mg tablet 250 mg PO UD ondansetron HCl 8 mg tablet 8 mg PO TID PRN(if needed) ASK your prescriber and surgeon apixaban 5 mg tablet (Eliquis) 5 mg PO BID ibrutinib 280 mg tablet (Imbruvica) 280 mg PO HS STOP taking 24 hours before surgery triamcinolone acetonide 0.1 % topical ointment 1 applic topical BID PRN Take morning of surgery With a small sip of water, OTHERWISE NOTHING TO EAT OR DRINK AFTER MIDNIGHT: pantoprazole 40 mg tablet,delayed release (Protonix) 40 mg PO QAM citalopram 40 mg tablet (Celexa) 40 mg PO QAM Take evening before surgery zolpidem 10 mg tablet (Ambien) 10 mg PO HS PRN(if needed) famotidine 20 mg tablet 20 mg PO HS Other Notes If you have any questions please call us at [phone] or [phone] or [phone] or [phone]
--- NOTE | 2022-01-09 14:50 | Anesthesiology Consultation ---
Date of Service January 09, 2022 Assessment & Plan (1) Encounter for pre-operative examination: - PCP pre-op eval 01/21/22. - anesthesia complication: Pt states "slow to fall asleep" states was in OR once and surgeon was shocked he was still responding before surgery began. Denies awareness during surgery. - procaine allergy. - vocal cord paresis. Chart Review Chart Review: Pending: Refer to Additional Notes / Consult section and Patient seen in Pre Admission Testing Teaching & Discussion Pre-Anesthesia Teaching/Discussion Notes: Instructed NPO after midnight before surgery, except medications with 15 cc of water. Medication instructions provided according to the PAT guidelines. History Surgery Operation Date: 02/03/22 10:05 Proposed Procedures p L4-S1 Decompression Fusion, Spinal Cord Monitoring - Prince Gomes DO Height/Weight Height: 5 ft 10 in Weight: 100.698 kg Allergies Allergy/AdvReac Type Severity Reaction Status Date / Time prednisone AdvReac Intermediate GI upset Verified 01/07/22 13:51 Penicillins AdvReac Unknown Passed out Verified 01/07/22 13:51 procaine AdvReac Unknown Passed out Verified 01/07/22 13:51 Medications Home Medications Medication Instructions Recorded Confirmed Last Taken zolpidem 10 mg tablet (Ambien) 10 mg PO HS PRN Sleep 04/20/18 01/06/22 09/08/19 23:00 pantoprazole 40 mg tablet,delayed 40 mg PO QAM 06/23/18 01/06/22 09/09/19 04:30 release (Protonix) ondansetron HCl 8 mg tablet 8 mg PO TID PRN nausea and 11/01/18 01/06/22 Unknown vomiting #30 tabs comp.stocking,thigh,long,large #2 ea 02/01/19 12/19/20 Unknown apixaban 5 mg tablet (Eliquis) 5 mg PO BID 03/07/19 01/06/22 09/05/19 10:00 citalopram 40 mg tablet (Celexa) 40 mg PO QAM 03/07/19 01/06/22 09/09/19 04:30 triamcinolone acetonide 0.1 % 1 applic topical BID PRN Skin 12/19/20 01/06/22 Unknown topical ointment Irritation azithromycin 250 mg tablet 250 mg PO UD 01/06/22 01/06/22 Unknown famotidine 20 mg tablet 20 mg PO HS 01/06/22 01/06/22 Unknown ibrutinib 280 mg tablet (Imbruvica) 280 mg PO HS 01/06/22 01/06/22 Unknown Past Medical History Medical History (Updated 01/09/22 @ 15:23 by Sil Martin PA-C) Anxiety Atrial fibrillation Managed by PCP, on Eliquis Atrial flutter Chronic sinusitis s/p sinus endoscopy with ballooning/packing CKD (chronic kidney disease) stage 3, GFR 30-59 ml/min COPD (chronic obstructive pulmonary disease) controlled, stable per pt; last rescue inhaler use approx several months ago GERD (gastroesophageal reflux disease) controlled, stable per pt History of DVT (deep vein thrombosis) LLE (2018)- felt 2/2 hypercoagulopathy from IVIG therapy. 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 Has been on IVIG since. 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 TIA (transient ischemic attack) 2019 Vertigo controlled Vocal cord paresis Waldenstrom macroglobulinemia Follows with [facility] oncology, chemo completed 12/2017, stable per 10/22/21 [facility] heme/onc note Patient denies h/o seizures, heart attack, heart failure, DM, HTN, or blood transfusions. Exercise / Class Metabolic Activity II 4-5 Yardwork/Stairs/Walk up hill (mild SOB with 1 FOS, ongoing x several months since back worsened and physical activity reduced; denies chest discomfort) Past Family History Family History Sister Breast cancer Mother Breast cancer Father Liver cancer Unknown FHx: deafness or hearing loss Sinusitis Denies family history of Myocardial infarction Stroke Past Surgical History Surgical History (Updated 01/09/22 @ 15:04 by Sil Martin PA-C) History of anesthesia problem "hard to get under anesthesia" states surgeon was once surprised he was still responding before surgery began; denies awareness during surgery History of appendectomy History of bronchoscopy History of cardiac radiofrequency ablation ~10 years ago History of cholecystectomy History of colonoscopy History of open reduction and internal fixation (ORIF) procedure RLE History of vascular access device Subsequent removal Hx of sinus surgery ESS (08/12/19): LMA#5, atraumatic at [facility]. No issues noted per post-op anesthesia progress note. Past Anesthesia History No Family Hx of Anesthesia Complications and Other (slow to fall asleep per pt) History of PONV No Hx of PONV and Hx of Motion Sickness Social History Smoking Status: Former smoker tobacco type: cigarettes Do You Dip or Chew Tobacco: No Smoking End Date: 30+ years ago Hx Alcohol Use: Yes Alcohol type: beer alcohol intake frequency: holidays/special occasions only Hx Substance Use: No substance use type: does not use Review of Systems Snoring, denies witnessed apneas. Chronic cough with sinus dysfunction, occasionally productive of clear sputum. Patient denies chest pain, shortness of breath, dyspnea on exertion, fever, chills, wheezing, or palpitations. Physical Exam Vital Signs Vitals BP 122/80 P 67 TEMP 98.7 SP02 97% on RA RESP 17 Physical Full cervical extension range of motion without pain TMD 3.5 finger breadths Mallampati Score Dentition: intact, front lower permanent implants, removable plate upper left front teeth; denies chipped or loose teeth, caps/crowns Lungs: normal respiratory effort. Clear throughout to auscultation, no adventitious breath sounds Cardiac: regular rate and rhythm, no murmurs noted Carotid arteries: negative bruit bilat Lab Results Anesthesia Preop Results Results Anesthesia Widget: WBC 6.06 K/ul (4.8-10.8) 01/09/22 Hgb 15.8 g/dl (14.0-18.0) 01/09/22 Hct 48.8 % (40.1-51.0) 01/09/22 Plt 131 K/uL (130-400) 01/09/22 Na 141 mmol/L (136-145) 01/09/22 K 4.6 mmol/L (3.5-5.1) 01/09/22 Cl 108 mmol/L (98-107) H 01/09/22 CO2 28 mmol/L (21-32) 01/09/22 BUN 18 mg/dl (6-23) 01/09/22 Creat 1.41 mg/dl (0.6-1.4) H 01/09/22 Glucose Level 73 mg/dl (70-99(Fasting)) 01/09/22 PT 10.5 Seconds (9.0-12.0) 01/09/22 PTT 31.2 Seconds (21.0-31.0) H 01/09/22 INR 1.0 (0.9-1.1) 01/09/22 Urine Color Yellow 01/09/22 Urine Appearance Clear (Clear) 01/09/22 Urine pH 5.0 (4.5-7.5) 01/09/22 Urine Specific Leiter 1.017 (1.000-1.030) 01/09/22 Urine Protein Negative (Negative) 01/09/22 Urine Glucose (UA) Negative (Negative) 01/09/22 Urine Ketones Negative (Negative) 01/09/22 Urine Blood Negative (Negative) 01/09/22 Urine Nitrite Negative (Negative) 01/09/22 Urine Bilirubin Negative (Negative) 01/09/22 Urine Urobilinogen Negative (Negative) 01/09/22 Urine Leukocyte Esterase Negative (Negative) 01/09/22 Blood Type A Positive 01/09/22 Antibody Screen NEGATIVE 01/09/22 Testing Electrocardiogram Date: 01/09/22 NSR, rate 64 bpm Chest X-Ray Date: 01/09/22 Cardiomediastinal and hilar silhouettes are within normal limits. Pulmonary emphysema with mild chronic interstitial coarsening. There is no pneumothorax, pleural effusion, airspace consolidation or overt pulmonary edema. Degenerative changes of the shoulders and spine. Cholecystectomy. IMPRESSION: Emphysema without acute process. Echocardiogram Date: 06/04/20 EF 60-64% Normal LV wall motion Mild cLVH Grade I diastolic dysfunction Aortic root borderline enlarged No significant valvular disease Stress Test Date: 06/04/20 Pharmacologic MPHR 82% Negative for ischemia EF 65% Other Testing PET scan 05/02/21 1. Interval decrease in size and metabolic activity of conglomerate lymphadenopathy in the cervical, axillary, external iliac, and inguinal regions bilaterally. 2. New small pulmonary consolidations with low-level metabolic activity in the left upper lobe and bilateral lower lobes, likely sequela of pneumonia. 3. New small left pleural effusion. Carotid doppler 07/25/2019 1. There is no sonographic evidence of hemodynamically significant stenosis in the right or left carotid arterial system. 2. Antegrade flow is shown in the vertebral arteries. COVID-19 Risk Screen Screening Information COVID-19 Screen Date: 01/09/22 Exposure 21 Days Family/Household +COVID Last 21 Days: No Exposure 10 Days Any COVID Exposure Last 10 Days: No Symptoms Last 10 Days Experienced COVID Sx Last 10 Days: No + COVID 0-90 Days COVID + in Last 0-90 Days: No
[~2022-02-03 10:37] MED LIST changes: +ACETAMINOPHEN 500 MG TAB PO SCH; -ALLO100T PO; -ATROPINE SULFATE 0.1 MG/ML 5ML SYR IV PRN; -BACITRACIN OINT 15 GM TUBE ONE; -BUPIVACAINE 0.25% 30 ML VIAL ONE; -CITA40TA4 PO; -CLINDAMYCIN 600 MG/54 ML D5W IV SCH; -CLINDAMYCIN IV 600 MG in DEXTROSE 5% 50ML 50 ML IV ONE; +CeleBREX 200 MG CAP PO SCH; -DEXT1TAB50 PO; -EpHEDrine SULFATE INJ 50 MG/ML AMP IV PRN; -FENTANYL CITRATE INJ 50 MCG/1 ML 2 ML VIAL ONE; -FLUT0.15 INTNAS; +GABAPENTIN 300 MG CAP PO SCH; -LACTATED RINGER'S 1000ML 1,000 ML IV SCH; -LIDOCAINE HCL 1% 20 ML VIAL ONE; -LIDOCAINE HCL 2% 2 ML VIAL (20MG/ML) ONE; +LR 15ML/HR IV SCH; -MECL1TAB42 PO; -MIDAZOLAM HCL 1 MG/ML 2ML VIAL ONE; -MoRPHine SULFATE 2 MG/ML CARP IV PRN; -ONDA-170 PO; -ONDANSETRON INJ 2 MG/ML 2 ML VIAL IV PRN; -ONDANSETRON INJ 2 MG/ML 2 ML VIAL ONE; -OXYC-57 PO; -OXYCODONE/ACETAMINOPHEN 5-325 TAB PO PRN; -PANT40TA PO; -PHENYLEPHRINE 100MCG/ML 5ML SYR ONE; -PROPOFOL IV EMULSION 10 MG/ML 20 ML VIAL ONE; -SODIUM CHLORIDE 0.9% 1000ML 1,000 ML IV SCH; -VNTHFA/IN INH; +ceFAZolin 2000MG 2,000 MG/15 ML SYR IV SCH
[2022-02-03] MEDS ORDERED: MIDAZOLAM HCL 1 MG/ML 2ML VIAL ONE (10:53)
[2022-02-03] MEDS ORDERED: fentaNYL citrate 100 MCG/2 ML VIAL ONE ×2 (10:54→15:33)
[2022-02-03] MEDS ORDERED: ATROPINE SULFATE 0.1 MG/ML 10ML SYR IV PRN (12:14)
[2022-02-03] MEDS ORDERED: fentaNYL citrate 100 MCG/2 ML VIAL IV PRN (12:14)
[2022-02-03] MEDS ORDERED: HYDROmorphone INJ 2 MG/ML SYR/VIAL IV PRN (12:14)
[2022-02-03] MEDS ORDERED: ONDANSETRON INJ 2 MG/ML 2 ML VIAL IV PRN ×2 (12:14→17:09)
[2022-02-03] MEDS ORDERED: ePHEDrine sulfate 50 MG/ML AMP IV PRN (12:14)
--- NOTE | 2022-02-03 12:47 | History & Physical Bridge Note ---
Date of Service February 03, 2022 History & Physical Bridge Note I have examined the patient, reviewed the History & Physical and in the interval since the performance of the History & Physical I have noted the following changes of clinical significance: no changes noted
--- NOTE | 2022-02-03 12:48 | History & Physical Report ---
Date of Service February 03, 2022 Assessment & Plan (1) Neurogenic claudication due to lumbar spinal stenosis: Plan: L4-S1 decompression and fusion History of Present Illness Chief Complaint: Back and bilateral leg pain Primary Care Provider: Allan Kaur M.D. 69-year-old male presents with chronic persistent back and leg pain. Failed extensive course of nonoperative care is here for surgical invention. Allergies Allergy/AdvReac Type Severity Reaction Status Date / Time prednisone AdvReac Intermediate GI upset Verified 02/03/22 11:06 Penicillins AdvReac Unknown Passed out Verified 02/03/22 11:06 procaine AdvReac Unknown Passed out Verified 02/03/22 11:06 Home Medications Medication Instructions Recorded Confirmed Type zolpidem 10 mg tablet (Ambien) 10 mg PO HS PRN Sleep 04/20/18 02/03/22 History pantoprazole 40 mg tablet,delayed 40 mg PO QAM 06/23/18 02/03/22 History release (Protonix) ondansetron HCl 8 mg tablet 8 mg PO TID PRN nausea and 11/01/18 02/03/22 Rx vomiting #30 tabs comp.stocking,thigh,long,large #2 ea 02/01/19 12/19/20 Rx apixaban 5 mg tablet (Eliquis) 5 mg PO BID 03/07/19 02/03/22 History citalopram 40 mg tablet (Celexa) 40 mg PO QAM 03/07/19 02/03/22 History triamcinolone acetonide 0.1 % 1 applic topical BID PRN Skin 12/19/20 02/03/22 History topical ointment Irritation azithromycin 250 mg tablet 250 mg PO UD 01/06/22 02/03/22 History famotidine 20 mg tablet 20 mg PO HS 01/06/22 02/03/22 History ibrutinib 280 mg tablet (Imbruvica) 280 mg PO HS 01/06/22 02/03/22 History Past Med/Surg History Medical History (Updated 02/03/22 @ 12:48 by Prince Gomes DO) Anxiety Atrial fibrillation Managed by PCP, on Eliquis Atrial flutter Chronic sinusitis s/p sinus endoscopy with ballooning/packing CKD (chronic kidney disease) stage 3, GFR 30-59 ml/min COPD (chronic obstructive pulmonary disease) controlled, stable per pt; last rescue inhaler use approx several months ago GERD (gastroesophageal reflux disease) controlled, stable per pt History of DVT (deep vein thrombosis) LLE (2018)- felt 2/2 hypercoagulopathy from IVIG therapy. 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 Has been on IVIG since. 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 TIA (transient ischemic attack) 2019 Vertigo controlled Vocal cord paresis Waldenstrom macroglobulinemia Follows with [facility] oncology, chemo completed 12/2017, stable per 10/22/21 [facility] heme/onc note Surgical History History of anesthesia problem "hard to get under anesthesia" states surgeon was once surprised he was still responding before surgery began; denies awareness during surgery History of appendectomy History of bronchoscopy History of cardiac radiofrequency ablation ~10 years ago History of cholecystectomy History of colonoscopy History of open reduction and internal fixation (ORIF) procedure RLE History of vascular access device Subsequent removal Hx of sinus surgery ESS (08/12/19): LMA#5, atraumatic at [facility]. No issues noted per post-op anesthesia progress note. Family History Sister Breast cancer Mother Breast cancer Father Liver cancer Unknown FHx: deafness or hearing loss Sinusitis Denies family history of Myocardial infarction Stroke Social History Smoking Status: Former smoker Smoking End Date: 30+ years ago; Second Hand Exposure: No; Do You Dip or Chew Tobacco: No; Tobacco Cessation Education Requested by Patient: No Hx Alcohol Use: Yes Alcohol type: beer Hx Substance Use: No Preferred Language: Com[place] Communication Ability: Effective Sanitarian Required: No Beliefs That Will Affect Care: None marital status: Current Living Situation: Spouse current occupational status: retired Other Information That Helps Us Care for You: No Feels Safe at Home: Yes Safety Concerns: Feels Safe At This Time Assistive Devices: Glasses, Hearing Aid - Bilateral and Other Assistive Devices Comment: partial upper denture Physical Exam Physical Exam: Patient is alert and oriented Heart regular rhythm Lungs clear Results & Data Results & Data ([facility]) Vital Signs (Past 12 Hours) Vital Signs Temp Pulse Resp BP Pulse Ox O2 Del Method 02/03/22 11:14 36.6 C 78 20 134/78 97 Room Air
[2022-02-03] MEDS ORDERED: BUPIVACAINE/EPINEPHRINE 0.25% 1:200,000 30 ML VIAL ONE (13:10)
[2022-02-03] MEDS ORDERED: ceFAZolin 330 MG/ML 1 GM VIAL ONE (13:10)
[2022-02-03] MEDS ORDERED: CLINDAMYCIN 900 MG/D5W 50 ML BAG IV ONE (13:38)
[2022-02-03] MEDS ORDERED: ROCURONIUM BROMIDE 10 MG/ML 5 ML VIAL IV ONE (14:30)
[2022-02-03] MEDS ORDERED: NEOSTIGMINE METHYLSULFATE 1 MG/ML 10ML VIAL ONE (14:31)
[2022-02-03] MEDS ORDERED: PROMETHAZINE HCL INJ 25 MG/ML 1 ML VIAL ONE (14:31)
[2022-02-03] MEDS ORDERED: GLYCOPYRROLATE 0.2 MG/ML VIAL ONE (14:31)
[2022-02-03] MEDS ORDERED: ePHEDrine sulfate 50 MG/ML AMP ONE (14:31)
[2022-02-03] MEDS ORDERED: PROPOFOL IV EMULSION 10 MG/ML 20 ML VIAL IV ONE (14:31)
[2022-02-03] MEDS ORDERED: ONDANSETRON INJ 2 MG/ML 2 ML VIAL ONE (14:31)
[2022-02-03] MEDS ORDERED: FLOSEAL HEMOSTATIC MATRIX 10ML TOP ONE (15:16)
--- NOTE | 2022-02-03 15:27 | Fluoroscopy Report ---
FL lumbar spine 2-3V CLINICAL HISTORY: L4-S1 DECOMP/FUSION TECHNIQUE: 2 views were obtained with the C-arm in the OR with the above procedure. Total fluoroscopy time was 32.4 seconds. Radiation dose was 31.1 mGy. Comparison: None available at the time of this dictation. FINDINGS/IMPRESSION: Intraoperative images were obtained of L4-S1 decompression and fusion. Please correlate with intraoperative fluoroscopy and operative report. ACT 112: Negative or not required by law. Electronically signed by: Lenny Almeida M.D. 02/03/2022 3:25 PM
--- NOTE | 2022-02-03 15:41 | Operative Report ---
Post Operative Report Pre & Post Diagnosis Operation Date: 02/03/22 11:55 Pre-Op Diagnosis: Lumbar spinal stenosis with neurogenic claudication. #2 spondylolisthesis L5-S1 Post-Op Diagnosis: Same I identified the patient and participated in the time-out.: Yes Procedure Operation Date: 02/03/22 11:55 Actual Procedures #1 lumbar decompression bilateral facetectomies and foraminotomies L3-L4, L4-L5 and L5-S1. #2 posterior spinal fusion L4-L5 L5-S1. #3 placement posterior instrumentation L4-L5 L5-S1. #4 interbody fusion L4-L5 L5-S1. #5 placement of Spira 13 x 26 mm cage at L4-L5 and 14 x 26 mm cage L5-S1. #6 placement locally harvested morselized autograft in the posterior gutters. #7 placement of I factor, V toss interbody space and posterior lateral gutters. 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 Patient's body habitus did contribute to significant technical difficulty required deepest retractors and longer instruments in order to perform his procedure. This had at least 50% increased to the operative time. Specimens None Indications This is a 71 old male who presents with above-mentioned diagnosis after failed course of nonoperative care is here for surgical invention. Description of Procedure Patient was met with identified informed consent obtained. Patient was then taken to the operative suite underwent ablation placed in a prone position the Bryon table top Jose F frame. All bony prominences well-padded eyes inspected to ensure no external pressure placed upon the. This point the lumbar spine was prepped and draped in normal sterile fashion. Sharp dissection with assistance of Bovie cautery performed down to and exposing the lamina transverse processes of L4-L5 and sacral ala bilaterally. Obvious bilateral pars defect was noted at L5. A complete laminectomy L5 L4 and partial laminectomy of L3 was performed including bilateral medial facetectomies and foraminotomies addressing all spinal stenosis. Pedicle screws were then placed in L4 L5 and S1 levels bilaterally with assistance of fluoroscopy and the properly sized jennie contoured and placed. By way of transforaminal approach and left pleat discectomy of L5- S1 was performed endplates curetted to subcortical being bone and a 14 x 26 mm spiral cage with I factor tapped in position. Then proceeded L4-L5 and again by way of a transforaminal approach and left complete discectomy performed endplates curetted to subcortical being bone and a 13 x 26 mm spiral cage with I factor tapped in position. The rods were then locked in final position bilaterally. The transverse processes of L4-L5 and sacral ala burred to subcortically bone. I factor bone of the test and locally harvested morselized autograft was placed in the posterior gutters. 15 round HONG drain inserted. The incision was then closed with 1 Vicryl in the fascia 2-0 Vicryl subcutaneously and 4 Monocryl for final skin closure. Steri-Strips dressings placed. Patient waken taken to PACU stable condition. Please note spinal cord monitoring was utilized at the procedure no changes noted. I attest to the content of the Intraoperative Record and any orders documented therein. Any exceptions are noted below.
--- NOTE | 2022-02-03 16:44 | Anesthesiology Progress Note ---
Date of Service February 03, 2022 Anesthesia Post Procedure Vital Signs Vital Signs: Temp Pulse Pulse Resp BP Pulse Ox O2 Del Method 02/03/22 16:35 36.8 C 85 18 102/62 95 Oxymask 02/03/22 16:05 93 H 17 105/68 92 Oxymask 02/03/22 16:25 85 19 100/64 94 Oxymask 02/03/22 16:15 89 17 91/63 L 93 Oxymask 02/03/22 15:55 101 H 17 117/70 93 Oxymask 02/03/22 15:48 36 C L 101 H 18 122/68 98 Oxymask 02/03/22 11:14 36.6 C 78 20 134/78 97 Room Air O2 Flow Rate 02/03/22 16:35 2 02/03/22 16:05 2 02/03/22 16:25 2 02/03/22 16:15 2 02/03/22 15:55 2 02/03/22 15:48 5 02/03/22 11:14 Transfer of Care Handoff Completed per policy Notes Mental Status: alert / awake / arousable Patient Amnestic to Procedure: Yes Nausea / Vomiting: adequately controlled Pain: adequately controlled Airway Patency, RR, SpO2: stable & adequate BP & HR: stable & adequate Hydration State: stable & adequate Anesthetic Complications: no major complications apparent and Pt Satisfied with anesthetic care
[2022-02-03] MEDS ORDERED: hydrOXYzine HCl 25 MG TAB PO PRN (17:09)
[2022-02-03] MEDS ORDERED: NALOXONE HCL 0.4 MG/1 ML VIAL/CARP IV PRN (17:09)
[2022-02-03] MEDS ORDERED: DO NOT ADMINISTER PNEUMOCOCCAL VACCINE PRN (17:09)
[2022-02-03] MEDS ORDERED: ONDANSETRON 4 MG OD TAB PO PRN (17:09)
[2022-02-03] MEDS ORDERED: ACETAMINOPHEN 1,000 MG/100 ML VIAL IV PRN (17:09)
[2022-02-03] MEDS ORDERED: ALUMINUM/MAGNESIUM SUSP 30 ML UDC PO PRN (17:09)
[2022-02-03] MEDS ORDERED: PROMETHAZINE HCL 12.5 MG in SODIUM CHLORIDE 0.9% 50 ML IV PRN (17:09)
[2022-02-03] MEDS ORDERED: bisacodyL 10 MG SUPP PR PRN (17:09)
[2022-02-03] MEDS ORDERED: LORazepam 0.5 MG TAB PO PRN (17:09)
[2022-02-03] MEDS ORDERED: MAGNESIUM HYDROXIDE SUSP 30 ML UDC PO PRN (17:09)
[2022-02-03] MEDS ORDERED: SOD PHOSPHATE/SOD BIPHOSPHATE ENEMA 132 ML BTL PR PRN (17:09)
[2022-02-03] MEDS ORDERED: diphenhydrAMINE Capsule 25 MG CAP PO PRN (17:09)
[2022-02-03] MEDS ORDERED: FAMOTIDINE 20 MG TAB PO PRN (17:09)
[2022-02-03] MEDS ORDERED: METOCLOPRAMIDE HCL INJ 5 MG/ML 2 ML VIAL IV PRN (17:09)
[2022-02-03] MEDS ORDERED: DO NOT ADMINISTER FLU VACCINE PRN (17:09)
[2022-02-03] MEDS ORDERED: HYDROmorphone INJ 0.5 MG/0.5 ML SYR IV PRN (17:09)
[2022-02-03] MEDS ORDERED: LORazepam 2 MG/1 ML VIAL IV PRN (17:09)
[2022-02-03] MEDS: LACTATED RINGER'S 1,000 ML IV SCH (17:40)
[2022-02-03] MEDS: oxyCODONE HCL IR 5 MG TAB (IMMEDIATE RELEASE) PO PRN (17:44)
[2022-02-03] MEDS: DOCUSATE SODIUM/SENNA 50/8.6MG TAB PO SCH (20:22)
[2022-02-03] MEDS: FAMOTIDINE 20 MG TAB PO SCH (20:22)
[2022-02-03] MEDS: CLINDAMYCIN/D5W 600 MG/50 ML BAG IV SCH (22:14)
[2022-02-03] MEDS: ZOLPIDEM TARTRATE 10 MG TAB PO PRN (22:15)
[2022-02-04] MEDS: LACTATED RINGER'S 1,000 ML IV SCH (01:01)
[2022-02-04] MEDS: CLINDAMYCIN/D5W 600 MG/50 ML BAG IV SCH (05:57)
[2022-02-04] MEDS: POLYETHYLENE (MIRALAX) 17 GM PACK PO SCH ×3 (06:00→17:07)
[2022-02-04] MEDS: ACETAMINOPHEN 500 MG TAB PO PRN (06:33)
[2022-02-04 07:53] LABS: Hematocrit (blood only) 37.8 % (40.1-51.0); Hemoglobin 12.3 g/dl (14.0-18.0); Mean Corpuscular Hemoglobin 26.3 pg (25.0-34.0); Mean Corpuscular Hgb Conc 32.5 g/dL (32.0-36.0); Mean Corpuscular Volume 80.8 fL (80.0-100.0); Mean Platelet Volume 10.7 fL (9.4-12.4); Platelet Count 135 K/uL (130-400); RDW Coefficient of Variation 15.3 % (11.5-14.5); RDW Standard Deviation 44.7 fL (36.4-46.3); Red Blood Count 4.68 M/uL (4.63-6.08); White Blood Count 11.94 K/ul (4.8-10.8)
[2022-02-04] MEDS: traMADol HCL 50 MG TABLET PO PRN ×2 (07:54→22:55)
[2022-02-04 08:12] LABS: BUN Creatinine Ratio 12.9 (10-20); Calcium 7.9 mg/dl (8.5-10.1); Creatinine Clr Calc Pharmacy 61.6 ml/min; Est GFR (Non-African American) 53.5 ml/min; Potassium 4.2 mmol/L (3.5-5.1)
[2022-02-04 08:16] LABS: Basophils # (auto) 0.01 K/uL (0-0.2); Basophils % (auto) 0.1 %; Immature Granulocytes # (auto) 0.05 K/uL (0.00-0.02); Immature Granulocytes % (auto) 0.4 %; Lymphocytes % (auto) 2.5 %; Monocytes # (auto) 0.61 K/uL (0.24-0.82); Monocytes % (auto) 5.1 %; Neutrophils # (auto) 10.97 K/uL (1.4-6.5); Neutrophils % (auto) 91.9 %
--- NOTE | 2022-02-04 08:43 | Hospitalist Consultation ---
Date of Consultation February 04, 2022 Assessment & Plan (1) Neurogenic claudication due to lumbar spinal stenosis: (2) S/P lumbar spinal fusion: - Transfer the patient to telemetry due to episode of shaking, tachycardia and lightheadedness post IV Decadron infusion this morning for further monitoring -Trend troponin x 1 now, if elevated then will trend and consider cardiology involvement, repeat EKG - Will contact allergy/immunology regarding possible allergic reaction with underlying IGG deficiency and hx of Waldenstrom -discussion was held with Dr. Casarez- appreciate - reports that patient is well-known to his service and that he has previously reacted to different IV medications including IVIG with such a response as this before. He reports that if IV Decadron is necessary post procedurally then patient would likely be able to tolerate this at a lower dose. Discussed with Dr. Gomes and medication has been discontinued as this is a postoperative nausea/pain control support agent more so than a required medication for this patient. 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 Castillo. Please do not hesitate to call with questions or concerns. At this time medicine service will follow along. Supervising Physician Co-Signing Physician Notes Patient seen and examined by me, care coordinated with Binh Beltran PA-C, please refer to her note above for further detail. Patient status post lumbar spinal surgery yesterday. This morning patient was receiving IV Decadron when he experienced shakes and chest tightness. Currently feeling better. However still continues to rub his chest and feeling somewhat uncomfortable. Per RN patient was not tachycardic in low 100s, check vital signs at the bedside, normal. On exam no wheezing, heart rate regular. Patient is awake alert able to answer all questions appropriately and following commands. Discussed with Dr. Gomes, that we will transfer patient to telemetry for now for close monitoring. Ordered stat troponin and stat EKG. Patient known to have IgG deficiency and follows up with immunology, will reach out to them to discuss further this adverse reaction to Decadron. Discussed with KUNAL, after following up on repeat troponins that were elevated, echocardiogram was ordered and patient was discussed with cardiology. MD Dea History of Present Illness Reason for Consultation: Medical management Requesting Physician: Dr. Gomes Attending Physician: Prince Gomes DO History of Present Illness This is a 71-year-old male with PMHx of atrial fibrillation on Eliquis, a flutter, history of TIA in 2019, COPD, CKD stage III, James Seema macroglobulinemia s/p chemotherapy, non-Hodgkin's lymphoma, selective deficiency of immunoglobulin on IVIG therapy, follows with heme-onc. Patient presented for elective lumbar decompression fusion of L3-S1 by Dr. Gomes on 02/03/2022. Patient had an episode of shaking and arm tingling after receiving his postoperative IV dexamethasone this morning at approximately 09:15. He was tachycardic at that time and complained of feeling lightheaded. Pt also reported having some chest tightness and heaviness. He has never experienced this before. Nursing reports that this lasted approximately 3 minutes and then resolved. Dr. Gomes and Dr. Malin and myself arrived shortly thereafter to examine him. He denies any specific complaints currently and feels about completely back to normal . Just reports that this has never happened before. Denies any chest heaviness, chest pain, shortness of breath currently. He a dmits to having anxiety surrounding the episode earlier today. We will plan to transfer him to telemetry for further monitoring, EKG and trend troponin. Allergies Allergy/AdvReac Type Severity Reaction Status Date / Time prednisone AdvReac Intermediate GI upset Verified 02/03/22 11:06 Penicillins AdvReac Unknown Passed out Verified 02/03/22 11:06 procaine AdvReac Unknown Passed out Verified 02/03/22 11:06 Home Medications Medication Instructions Recorded Confirmed Type zolpidem 10 mg tablet (Ambien) 10 mg PO HS PRN Sleep 04/20/18 02/03/22 History pantoprazole 40 mg tablet,delayed 40 mg PO QAM 06/23/18 02/03/22 History release (Protonix) ondansetron HCl 8 mg tablet 8 mg PO TID PRN nausea and 11/01/18 02/03/22 Rx vomiting #30 tabs comp.stocking,thigh,long,large #2 ea 02/01/19 12/19/20 Rx apixaban 5 mg tablet (Eliquis) 5 mg PO BID 03/07/19 02/03/22 History citalopram 40 mg tablet (Celexa) 40 mg PO QAM 03/07/19 02/03/22 History triamcinolone acetonide 0.1 % 1 applic topical BID PRN Skin 12/19/20 02/03/22 History topical ointment Irritation azithromycin 250 mg tablet 250 mg PO UD 01/06/22 02/03/22 History famotidine 20 mg tablet 20 mg PO HS 01/06/22 02/03/22 History ibrutinib 280 mg tablet (Imbruvica) 280 mg PO HS 01/06/22 02/03/22 History oxycodone 5 mg tablet 5 mg PO Q6H PRN pain, severe #30 02/04/22 Rx tabs tramadol 50 mg tablet 50 mg PO Q6H PRN pain, moderate 02/04/22 Rx #30 tabs Patient History Medical History Anxiety Atrial fibrillation Managed by PCP, on Atrial flutter Chronic sinusitis s/p sinus endoscopy with ballooning/packing CKD (chronic kidney disease) stage 3, GFR 30-59 ml/min COPD (chronic obstructive pulmonary disease) controlled, stable per pt; last rescue inhaler use approx several months ago GERD (gastroesophageal reflux disease) controlled, stable per pt History of DVT (deep vein thrombosis) LLE (2018)- felt 2/2 hypercoagulopathy from IVIG therapy. 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 Has been on IVIG since. 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 TIA (transient ischemic attack) 2020 Vertigo controlled Vocal cord paresis Waldenstrom macroglobulinemia Follows with [facility] oncology, chemo completed 12/2017, stable per 10/22/21 [facility] heme/onc note Surgical History History of anesthesia problem "hard to get under anesthesia" states surgeon was once surprised he was still responding before surgery began; denies awareness during surgery History of appendectomy History of bronchoscopy History of cardiac radiofrequency ablation ~10 years ago History of cholecystectomy History of colonoscopy History of open reduction and internal fixation (ORIF) procedure RLE History of vascular access device Subsequent removal Hx of sinus surgery ESS (08/12/19): LMA#5, atraumatic at [facility]. No issues noted per post-op anesthesia progress note. Family History Sister Breast cancer Mother Breast cancer Father Liver cancer Unknown FHx: deafness or hearing loss Sinusitis Denies family history of Myocardial infarction Stroke Social History Smoking Status: Former smoker Smoking End Date: 30+ years ago; Second Hand Exposure: No; Do You Dip or Chew Tobacco: No; Tobacco Cessation Education Requested by Patient: No Hx Alcohol Use: Yes Alcohol type: beer Hx Substance Use: No Preferred Language: German Communication Ability: Effective Design Painter Required: No Beliefs That Will Affect Care: None marital status: Current Living Situation: Spouse current occupational status: retired Other Information That Helps Us Care for You: No Feels Safe at Home: Yes Safety Concerns: Feels Safe At This Time Assistive Devices: None Assistive Devices Comment: partial upper denture Review of Systems Review of Systems: Constitutional: No fever, sweats or chills Eyes: No diplopia, no worsening or blurred vision ENT: normal hearing, no trouble swallowing Respiratory: No cough, sputum, dyspnea at rest or on exertion Cardiovascular: No chest pain, tightness or palpitations Abdomen: No pain, nausea, vomiting, diarrhea or constipation Musculoskeletal: No joint pain, calf pain, swelling Neurologic: No weakness, numbness/tingling, or balance problems, has gotten up to eat breakfast earlier today in bedside chair Psychiatric: No anxiety or depression Skin: Left elbow with rash that occurs in the winter (likely eczema), otherwise no rash or itch Physical Exam Physical Exam: General: awake, alert, no apparent distress Head: Normocephalic, atraumatic ENT: PERRL, EOMI, no pharyngeal exudate, mucous membranes moist Chest: Clear to auscultation, on 2L via NC O2 sats at 95%, no adventitious breath sounds Cardiac: Regular rate and rhythm, no murmur, no JVD, normal peripheral pulses, good capillary refill Abdominal: NABS x 4 quadrants, soft, nondistended, nontender to palpation, no rebound or guarding Back: Patient is able to sit up at bedside, dressing C/C/I, HONG drain in place, approximately 70% full with bloody serosanguineous output Extremities: Normal inspection, no peripheral edema or erythema, calfs nontender to palpation Psych: Normal mood and affect Neuro: AAO x 3, strength intact bilaterally and rated 5/5, no motor deficits, speech is clear, no peripheral sensory deficits Results & Data Results & Data ([facility]) Vital Signs (Past 12 Hours) Vital Signs Temp Pulse Resp BP Pulse Ox O2 Del Method O2 Flow Rate 02/04/22 07:48 36.3 C L 86 18 116/66 91 Room Air 02/04/22 03:34 37.1 C 88 18 104/62 95 Nasal Cannula 2 02/03/22 23:32 36.8 C 97 H 18 108/70 96 Room Air Laboratory Results 02/04/22 02/04/22 02/03/22 07:35 07:35 11:00 WBC 11.94 H RBC 4.68 Hgb 12.3 L Hct 37.8 L MCV 80.8 MCH 26.3 MCHC 32.5 RDW Std Deviation 44.7 RDW Coeff of Benedict 15.3 H Plt Count 135 MPV 10.7 Immature Gran % (Auto) 0.4 Neut % (Auto) 91.9 Lymph % (Auto) 2.5 Ventura % (Auto) 5.1 Eos % (Auto) 0.0 Baso % (Auto) 0.1 Neut # (Auto) 10.97 H Lymph # (Auto) 0.30 L [place] # (Auto) 0.61 Eos # (Auto) 0.00 Baso # (Auto) 0.01 Immature Gran # (Auto) 0.05 H Sodium 136 Potassium 4.2 Chloride 105 Carbon Dioxide 25 Anion Gap 6 BUN 17 Creatinine 1.32 Est Cr Clr Drug Dosing 61.6 Est GFR ( Amer) 62.0 Est GFR (Non-Af Amer) 53.5 BUN/Creatinine Ratio 12.9 Glucose 164 H Calcium 7.9 L SARS-CoV-2, RNA, NAAT Blood Type A Positive Antibody Screen NEGATIVE Crossmatch See Detail 02/03/22 10:44 WBC RBC Hgb Hct MCV MCH MCHC RDW Std Deviation RDW Coeff of Benedict Plt Count MPV Immature Gran % (Auto) Neut % (Auto) Lymph % (Auto) Ventura % (Auto) Eos % (Auto) Baso % (Auto) Neut # (Auto) Lymph # (Auto) Ventura # (Auto) Eos # (Auto) Baso # (Auto) Immature Gran # (Auto) Sodium Potassium Chloride Carbon Dioxide Anion Gap BUN Creatinine Est Cr Clr Drug Dosing Est GFR ( Amer) Est GFR (Non-Af Amer) BUN/Creatinine Ratio Glucose Calcium SARS-CoV-2, RNA, NAAT NEGATIVE Blood Type Antibody Screen Crossmatch
[2022-02-04] MEDS: PANTOprazole 40 MG TAB PO SCH (08:58)
[2022-02-04] MEDS: CITALOPRAM 40 MG TAB PO SCH (08:58)
[2022-02-04] MEDS ORDERED: dexAMETHasone 6 MG in SYRINGE 0 ML IV SCH (09:00)
--- NOTE | 2022-02-04 09:53 | Orthopedic Progress Note ---
Date of Service February 04, 2022 Assessment & Plan (1) Neurogenic claudication due to lumbar spinal stenosis: Plan: At this time we will have him undergo therapy once he is medically stable. Admission and Anticipated Discharge Date Admission Date: February 03, 2022 Subjective Patient's back pain is controlled leg pain improved. He did struggle with some chest pressure status post IV Decadron this morning. He is going to be transferred to telemetry. Physical Exam Physical Exam: On exam at this time he is comfortable. He has no pain about patient of the chest. He has good strength testing lower extremities. Results & Data ([facility]) Vital Signs (Past 12 Hours) Vital Signs Temp Pulse Resp BP Pulse Ox O2 Del Method O2 Flow Rate 02/04/22 08:45 36.6 C 79 18 142/72 H 94 Room Air 02/04/22 07:48 36.3 C L 86 18 116/66 91 Room Air 02/04/22 03:34 37.1 C 88 18 104/62 95 Nasal Cannula 2 02/03/22 23:32 36.8 C 97 H 18 108/70 96 Room Air
--- NOTE | 2022-02-04 16:43 | Cardiology Consultation ---
Date of Consultation February 04, 2022 Assessment & Plan (1) S/P lumbar spinal fusion: (2) Abnormal EKG: - I first impression would be to characterize today's episode as an adverse reaction to dexamethasone. The patient definitely correlates onset of symptoms with having this medication administered intravenously. -Patient developed symptoms that included chest discomfort, but symptoms were certainly not limited to chest discomfort, with feeling a generalized sensation of dizziness, shaking, and felt like his heart was "pounding or jumping ". He does have a history of atrial arrhythmias, but he was not on telemetry at the time of the event, and he was in sinus rhythm thereafter. Vital signs are n ormal, and the patient is completely comfortable. His high-sensitivity troponin was mildly elevated at 50 PG per mL, and 2 hours later increased to 325 PG per mL. EKG with mild lateral ST depression. Follow- up echocardiogram without regional wall motion abnormality. The patient has an indwelling spinal drain in place. Patient's symptoms have subsided and he is at high risk for potential bleeding complication and will therefore hold off on consideration of aspirin and I do not think systemic anticoagulation indicated at present. He actually looks remarkably well considering he had spine surgery yesterday. Will trend troponin and repeat EKG tomorrow. History of Present Illness Attending Physician: Prince Gomes, History of Present Illness Anjum Jarrett is a 71-year-old male seen in cardiology consultation per the request of Mekhi Mckeon PA-C for evaluation of chest discomfort and an abnormal EKG. Patient's history is notable for Waldenstrom's macroglobulinemia, atrial flutter, and atrial fibrillation. He had most recently been seen as an outpatient in cardiology clinic by Mayte Rehman PA-C of our practice in Jun, 2020 at which time a stable degree of chronic dyspnea was noted, with patient having had a negative nuclear stress test and echocardiogram without significant abnormality leading up to that follow-up appointment. The patient underwent atrial flutter ablation in 2003, and pulmonary vein isolation ablation for atrial fibrillation in 2013. He remains on chronic anticoagulation with Eliquis. Patient describes severe symptoms of spinal stenosis with neurogenic claudication for which he underwent lumbar decompression and fusion performed by Dr. Gomes, yesterday, 02/03/2022. The patient tolerated surgery well. This morning, he was receiving a dose of IV Decadron as per usual postoperative routine, and he notes that his symptoms to medication entered his IV he had a sensation of feeling dizzy, shaking, and felt like his heart was "jumping ". He was not on telemetry at the time of this event. His symptoms were severe for only a few seconds, and overall the event lasted 3 minutes. At the time of assessment, the patient had been transferred to [facility]/telemetry, and he was seen and examined in room 282-2. He notes that he was feeling back to baseline at that point, with no further symptoms. Allergies Allergy/AdvReac Type Severity Reaction Status Date / Time prednisone AdvReac Intermediate GI upset Verified 02/03/22 11:06 Penicillins AdvReac Unknown Passed out Verified 02/03/22 11:06 procaine AdvReac Unknown Passed out Verified 02/03/22 11:06 Home Medications Medication Instructions Recorded Confirmed Type zolpidem 10 mg tablet (Ambien) 10 mg PO HS PRN Sleep 04/20/18 02/03/22 History pantoprazole 40 mg tablet,delayed 40 mg PO QAM 06/23/18 02/03/22 History release (Protonix) ondansetron HCl 8 mg tablet 8 mg PO TID PRN nausea and 11/01/18 02/03/22 Rx vomiting #30 tabs comp.stocking,thigh,long,large #2 ea 02/01/19 12/19/20 Rx apixaban 5 mg tablet (Eliquis) 5 mg PO BID 03/07/19 02/03/22 History citalopram 40 mg tablet (Celexa) 40 mg PO QAM 03/07/19 02/03/22 History triamcinolone acetonide 0.1 % 1 applic topical BID PRN Skin 12/19/20 02/03/22 History topical ointment Irritation azithromycin 250 mg tablet 250 mg PO UD 01/06/22 02/03/22 History famotidine 20 mg tablet 20 mg PO HS 01/06/22 02/03/22 History ibrutinib 280 mg tablet (Imbruvica) 280 mg PO HS 01/06/22 02/03/22 History oxycodone 5 mg tablet 5 mg PO Q6H PRN pain, severe #30 02/04/22 Rx tabs tramadol 50 mg tablet 50 mg PO Q6H PRN pain, moderate 02/04/22 Rx #30 tabs Patient History Medical History Anxiety Atrial fibrillation Managed by PCP, on Eliqu Atrial flutter Chronic sinusitis s/p sinus endoscopy with ballooning/packing CKD (chronic kidney disease) stage 3, GFR 30-59 ml/min COPD (chronic obstructive pulmonary disease) controlled, stable per pt; last rescue inhaler use approx several months ago GERD (gastroesophageal reflux disease) controlled, stable per pt History of DVT (deep vein thrombosis) LLE (2018)- felt 2/2 hypercoagulopathy from IVIG therapy. 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 Has been on IVIG since. 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 TIA (transient ischemic attack) 2019 Vertigo controlled Vocal cord paresis Waldenstrom macroglobulinemia Follows with [facility] oncology, chemo completed 12/2017, stable per 10/22/21 [facility] heme/onc note Surgical History History of anesthesia problem "hard to get under anesthesia" states surgeon was once surprised he was still responding before surgery began; denies awareness during surgery History of appendectomy History of bronchoscopy History of cardiac radiofrequency ablation ~10 years ago History of cholecystectomy History of colonoscopy History of open reduction and internal fixation (ORIF) procedure RLE History of vascular access device Subsequent removal Hx of sinus surgery ESS (08/12/19): LMA#5, atraumatic at [facility]. No issues noted per post-op anesthesia progress note. 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 Required: No Beliefs That Will Affect Care: None marital status: Current Living Situation: Spouse current occupational status: retired Other Information That Helps Us Care for You: No Feels Safe at Home: Yes Safety Concerns: Feels Safe At This Time Assistive Devices: None Assistive Devices Comment: partial upper denture Review of Systems Review of Systems: All systems reviewed & are unremarkable except as noted in HPI & below Physical Exam Constitutional: WD/WN, vitals as above Respiratory: normal respiratory effort, lungs clear to auscultation Cardiovascular: Rate/Rhythm: regular rate and regular rhythm Heart Sounds: no murmur Extremities: + edema (1+ pedal edema bilaterally-chronic per patient ) Gastrointestinal (Abdomen): normal bowel sounds, soft, nontender, no hepatosplenomegaly Neurologic: No focal deficits Results & Data ([facility]) Vital Signs (Past 12 Hours) Vital Signs Temp Pulse Pulse Resp BP Pulse Ox O2 Del Method 02/04/22 08:30 Nasal Cannula 02/04/22 12:37 36.5 C 79 18 115/67 97 Room Air 02/04/22 08:45 36.6 C 79 18 142/72 H 94 Room Air 02/04/22 07:48 36.3 C L 86 18 116/66 91 Room Air O2 Flow Rate 02/04/22 08:30 2 02/04/22 12:37 02/04/22 08:45 02/04/22 07:48 Laboratory Results Cardiac Enzymes 02/04/22 02/04/22 Range/Units 09:58 12:03 Troponin I High Sens 50.0 H* 325.6 H* D (0-20) pg/ml CBC 02/04/22 Range/Units 07:35 WBC 11.94 H (4.8-10.8) K/ul RBC 4.68 (4.63-6.08) M/uL Hgb 12.3 L (14.0-18.0) g/dl Hct 37.8 L (40.1-51.0) % Plt Count 135 (130-400) K/uL Neut # (Auto) 10.97 H (1.4-6.5) K/uL Lymph # (Auto) 0.30 L (1.2-3.4) K/uL Cavalier # (Auto) 0.61 (0.24-0.82) K/uL Eos # (Auto) 0.00 (0-0.50) K/uL Baso # (Auto) 0.01 (0-0.2) K/uL Comprehensive Metabolic Panel 02/04/22 Range/Units 07:35 Sodium 136 (136-145) mmol/L Potassium 4.2 (3.5-5.1) mmol/L Chloride 105 (98-107) mmol/L Carbon Dioxide 25 (21-32) mmol/L BUN 17 (6-23) mg/dl Creatinine 1.32 (0.6-1.4) mg/dl Glucose 164 H (70-99(Fasting)) mg/dl Calcium 7.9 L (8.5-10.1) mg/dl Diagnostic Findings EKG performed 02/04/2022 at 9:56 AM and reviewed independently revealed sinus rhythm at 93 bpm, with subtle ST segment depression in the lateral leads V4 to V6 as well as I and aVL which was new compared to the previous baseline 01/09/2022. -Repeat tracing performed at 1054 revealed subtle interval improvement, however the ST segments are now quite back to their previous baseline. Echocardiogram was performed today and reviewed by the undersigned, revealing mild concentric left ventricular hypertrophy, no regional wall motion abnormalities, LVEF normal to hyperdynamic, 65 to 70%, grade 1 diastolic dysfunction, no significant valvular pathology. Outpatient nuclear stress test performed 06/04/2020, Lexiscan nuclear cardiac stress test negative for ischemia. Gated SPECT images reveals normal myocardial thickening and wall motion. The LV ejection fraction is calculated at 65%.
--- NOTE | 2022-02-04 17:11 | Electrocardiogram Report ---
Test Reason : Blood Pressure : / mmHG Vent. Rate : 093 BPM Atrial Rate : 093 BPM P-R Int : 164 ms QRS Dur : 100 ms QT Int : 372 ms P-R-T Axes : 054 040 096 degrees QTc Int : 462 ms Normal sinus rhythm T wave abnormality, consider lateral ischemia Prolonged QT Abnormal ECG When compared with ECG of 09-JAN-2022 15:26, T wave inversion now evident in Lateral leads Confirmed by Calos Zhao ([id number]) on 02/04/2022 5:11:16 PM Referred By: Prince Gomes Confirmed By:Sanjay Zhao
--- NOTE | 2022-02-04 17:12 | Electrocardiogram Report ---
Test Reason : Blood Pressure : / mmHG Vent. Rate : 087 BPM Atrial Rate : 087 BPM P-R Int : 158 ms QRS Dur : 098 ms QT Int : 364 ms P-R-T Axes : 053 031 090 degrees QTc Int : 438 ms Sinus rhythm with Premature atrial complexes Nonspecific T wave abnormality Abnormal ECG When compared with ECG of 04-FEB-2022 09:56, (unconfirmed) Premature atrial complexes are now Present Confirmed by Calos Zhao ([id number]) on 02/04/2022 5:11:53 PM Referred By: Prince Gomes Confirmed By:Sanjay Zhao
[2022-02-04] MEDS: oxyCODONE HCL IR 5 MG TAB (IMMEDIATE RELEASE) PO PRN (20:32)
[2022-02-04] MEDS: FAMOTIDINE 20 MG TAB PO SCH (20:32)
[2022-02-04] MEDS: DOCUSATE SODIUM/SENNA 50/8.6MG TAB PO SCH (20:37)
[2022-02-04] MEDS: ZOLPIDEM TARTRATE 10 MG TAB PO PRN (22:55)
[2022-02-05] MEDS: HYDROmorphone INJ 1 MG/ML SYRINGE IV PRN ×2 (01:07→05:53)
[2022-02-05] MEDS: POLYETHYLENE (MIRALAX) 17 GM PACK PO SCH ×4 (01:49→15:49)
[2022-02-05] MEDS: PANTOprazole 40 MG TAB PO SCH (07:13)
[2022-02-05] MEDS: CITALOPRAM 40 MG TAB PO SCH (07:13)
[2022-02-05 08:13] LABS: Hematocrit (blood only) 36.9 % (40.1-51.0); Hemoglobin 12.1 g/dl (14.0-18.0); Mean Corpuscular Hemoglobin 26.5 pg (25.0-34.0); Mean Corpuscular Hgb Conc 32.8 g/dL (32.0-36.0); Mean Corpuscular Volume 80.7 fL (80.0-100.0); Mean Platelet Volume 10.6 fL (9.4-12.4); Platelet Count 123 K/uL (130-400); RDW Coefficient of Variation 15.7 % (11.5-14.5); RDW Standard Deviation 46.1 fL (36.4-46.3); Red Blood Count 4.57 M/uL (4.63-6.08); White Blood Count 7.17 K/ul (4.8-10.8)
--- NOTE | 2022-02-05 08:48 | Hospitalist Progress Note ---
Date of Service February 05, 2022 Assessment & Plan (1) Neurogenic claudication due to lumbar spinal stenosis: (2) S/P lumbar spinal fusion: Plan: - Transferred the patient to telemetry due to episode of shaking, tachycardia and lightheadedness post IV Decadron infusion (02/04 AM) - Contacted allergy/immunology regarding possible allergic reaction with underlying IGG deficiency and hx of Waldenstrom -discussion was held with Dr. Casarez- appreciate - reports that patient is well-known to his service and that he has previously reacted to different IV medications including IVIG with such a response as this before. He reports that if IV Decadron is necessary post procedurally then patient would likely be able to tolerate this at a lower dose. Discussed with Dr. Gomes and medication has been discontinued as this is a postoperative nausea/pain control support agent more so than a required medication for this patient. - troponin elevated -Echo obtained Mild concentric LVH. No regional wall motion abnormalities noted. LV systolic function is normal. LV EF 65 to 70%. Grade 1 diastolic dysfunction. No significant valvular pathology. 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 Castillo. Please do not hesitate to call with questions or concerns. At this time medicine service will follow along. Admission and Anticipated Discharge Date Admission Date: February 03, 2022 Subjective Patient seen in follow-up of medical consult status post spinal lumbar surgery. Patient also had adverse reaction to Decadron yesterday when he experienced shakes and chest tightness. Troponins were found elevated. Echocardiogram was ordered and reviewed by cardiology. Currently patient is lying in bed, in no acute distress, resting He is a bit drowsy, however easily awoken and able to answer questions appropriately Currently denies any chest pain shortness of breath or palpitations. Denies any headache. Denies any abdominal pain nausea vomiting. Review of Systems Review of Systems: All systems reviewed & are unremarkable except as noted in Subjective Physical Exam Physical Exam: General: WD/WN M in NAD Head: Normocephalic, atraumatic ENT: PERRL, EOMI Chest: Clear to auscultation b/l, no adventitious breath sounds, no wheezing Cardiac: Regular rate and rhythm, no murmur, no JVD, normal peripheral pulses, good capillary refill Abdominal: NABS x 4 quadrants, soft, nondistended, nontender to palpation, no rebound or guarding Back: C/C/I, HONG drain in place Extremities: Normal inspection, TEDs on, moves extremities Psych: Normal mood and affect Neuro: Drowsy but easily awoken, answering questions appropriately, speech is clear, moves extremities Results & Data Results & Data ([facility]) Vital Signs (Past 12 Hours) Vital Signs Temp Pulse Pulse Pulse Resp BP Pulse Ox 02/05/22 08:21 37.0 C 88 20 123/72 93 02/05/22 07:03 99 H 02/05/22 05:40 36.8 C 84 16 120/64 90 02/05/22 03:39 81 02/04/22 23:52 37.0 C 70 18 161/61 H 95 02/04/22 23:38 72 O2 Del Method 02/05/22 08:21 Room Air 02/05/22 07:03 02/05/22 05:40 Room Air 02/05/22 03:39 Room Air 02/04/22 23:52 Room Air 02/04/22 23:38 Laboratory Results 02/05/22 02/05/22 02/04/22 Range/Units 07:26 07:26 18:49 WBC 7.17 (4.8-10.8) K/ul RBC 4.57 L (4.63-6.08) M/uL Hgb 12.1 L (14.0-18.0) g/dl Hct 36.9 L (40.1-51.0) % MCV 80.7 (80.0-100.0) fL MCH 26.5 (25.0-34.0) pg MCHC 32.8 (32.0-36.0) g/dL RDW Std Deviation 46.1 (36.4-46.3) fL RDW Coeff of Benedict 15.7 H (11.5-14.5) % Plt Count 123 L (130-400) K/uL MPV 10.6 (9.4-12.4) fL Sodium 138 (136-145) mmol/L Potassium 4.2 (3.5-5.1) mmol/L Chloride 106 (98-107) mmol/L Carbon Dioxide 29 (21-32) mmol/L Anion Gap 3 (3-11) BUN 19 (6-23) mg/dl Creatinine 1.45 H (0.6-1.4) mg/dl Est Cr Clr Drug Dosing 56.1 ml/min Est GFR ( Amer) 55.4 ml/min Est GFR (Non-Af Amer) 47.8 ml/min BUN/Creatinine Ratio 13.1 (10-20) Glucose 94 (70-99(Fasting)) mg/dl Calcium 7.9 L (8.5-10.1) mg/dl Phosphorus 1.9 L (2.5-4.9) mg/dl Magnesium 1.8 (1.7-2.4) mg/dl Troponin I High Sens 553.1 H* D (0-20) pg/ml Crossmatch 02/04/22 02/04/22 02/03/22 Range/Units 12:03 09:58 11:00 WBC (4.8-10.8) K/ul RBC (4.63-6.08) M/uL Hgb (14.0-18.0) g/dl Hct (40.1-51.0) % MCV (80.0-100.0) fL MCH (25.0-34.0) pg MCHC (32.0-36.0) g/dL RDW Std Deviation (36.4-46.3) fL RDW Coeff of Benedict (11.5-14.5) % Plt Count (130-400) K/uL MPV (9.4-12.4) fL Sodium (136-145) mmol/L Potassium (3.5-5.1) mmol/L Chloride (98-107) mmol/L Carbon Dioxide (21-32) mmol/L Anion Gap (3-11) BUN (6-23) mg/dl Creatinine (0.6-1.4) mg/dl Est Cr Clr Drug Dosing ml/min Est GFR ( Amer) ml/min Est GFR (Non-Af Amer) ml/min BUN/Creatinine Ratio (10-20) Glucose (70-99(Fasting)) mg/dl Calcium (8.5-10.1) mg/dl Phosphorus (2.5-4.9) mg/dl Magnesium (1.7-2.4) mg/dl Troponin I High Sens 325.6 H* D 50.0 H* (0-20) pg/ml Crossmatch See Detail Medications Administered Current Inpatient Medications Acetaminophen (Acetaminophen 500 Mg Tab) 1,000 mg PO Q8H PRN PRN Reason: MILD Pain Scale 1,2,3 & Pre PT Stop: 03/05/22 17:08 Last Admin: 02/04/22 06:33 Dose: 1,000 mg Al Hydrox/Mg Hydrox/Simethicone (Aluminum/Magnesium Susp 30 Ml Udc) 30 ml PO Q6H PRN PRN Reason: Dyspepsia Stop: 03/05/22 17:08 Bisacodyl (Bisacodyl 10 Mg Supp) 10 mg AK DAILY PRN PRN Reason: Constipation Stop: 03/05/22 17:08 Citalopram Hydrobromide (Citalopram 40 Mg Tab) 40 mg PO QAM [facility] Stop: 03/06/22 08:59 Last Admin: 02/05/22 07:13 Dose: 40 mg Diphenhydramine HCl (Diphenhydramine Capsule 25 Mg Cap) 25 mg PO Q6H PRN PRN Reason: Allergic Rhinitis/Insomnia Stop: 03/05/22 17:08 Famotidine (Famotidine 20 Mg Tab) 20 mg PO HS [facility] Stop: 03/05/22 20:59 Last Admin: 02/04/22 20:32 Dose: 20 mg Famotidine (Famotidine 20 Mg Tab) 20 mg PO Q12H PRN PRN Reason: Dyspepsia Stop: 03/05/22 17:08 Hydromorphone HCl (Hydromorphone Inj 0.5 Mg/0.5 Ml Syr) 0.5 mg IV Q3H PRN PRN Reason: MODERATE Pain (Scale 4,5,6) & Pre PT Stop: 02/17/22 17:08 Hydromorphone HCl (Hydromorphone Inj 1 Mg/Ml Syringe) 1 mg IV Q3H PRN PRN Reason: SEVERE Pain (Scale 7,8,9,10) Stop: 02/17/22 17:08 Last Admin: 02/05/22 05:53 Dose: 1 mg Hydroxyzine HCl (Hydroxyzine Hcl 25 Mg Tab) 25 mg PO Q8H PRN PRN Reason: Anxiety Stop: 03/05/22 17:08 Promethazine HCl 12.5 mg/ (Sodium Chloride) 50.5 mls @ 202 mls/hr IV Q6H PRN PRN Reason: Nausea &/or Vomiting Stop: 03/05/22 17:08 Influenza Virus Vaccine Quadrival (Do Not Administer Flu Vaccine) 1 each N/A PRN PRN PRN Reason: Notification Stop: 03/05/22 17:08 Lorazepam (Lorazepam 0.5 Mg Tab) 0.5 mg PO Q8H PRN PRN Reason: Sedation/Anxiety Stop: 03/05/22 17:08 Last Admin: 02/04/22 01:01 Dose: 0.5 mg Lorazepam (Lorazepam 2 Mg/1 Ml Vial) 0.5 mg IV Q8H PRN PRN Reason: Sedation/Anxiety Stop: 03/05/22 17:08 Magnesium Hydroxide (Magnesium Hydroxide Susp 30 Ml Udc) 30 ml PO Q24H PRN PRN Reason: Constipation Stop: 03/05/22 17:08 Metoclopramide HCl (Metoclopramide Hcl Inj 5 Mg/Ml 2 Ml Vial) 10 mg IV Q6H PRN PRN Reason: Nausea &/or Vomiting Stop: 03/05/22 17:08 Naloxone HCl (Naloxone Hcl 0.4 Mg/1 Ml Vial/Carp) 0.1 mg IV Q5M PRN PRN Reason: Oversedation/Resp depression Stop: 03/05/22 17:08 Ondansetron HCl (Ondansetron Inj 2 Mg/Ml 2 Ml Vial) 4 mg IV Q6H PRN PRN Reason: Nausea &/or Vomiting Stop: 03/05/22 17:08 Ondansetron HCl (Ondansetron 4 Mg Od Tab) 4 mg PO Q6H PRN PRN Reason: Nausea Stop: 03/05/22 17:08 Oxycodone HCl (Oxycodone Hcl Ir 5 Mg Tab (Immediate Release)) 5 - 10 mg PO Q4H PRN PRN Reason: Pain & Pre PT Stop: 02/17/22 17:08 Last Admin: 02/04/22 20:32 Dose: 10 mg Pantoprazole Sodium (Pantoprazole 40 Mg Tab) 40 mg PO QAM BENI Stop: 03/06/22 08:59 Last Admin: 02/05/22 07:13 Dose: 40 mg Pneumococcal Polyvalent Vaccine (Do Not Administer Pneumococcal Vaccine) 1 each N/A PRN PRN PRN Reason: Notification Stop: 03/05/22 17:08 Polyethylene Glycol (Polyethylene (Miralax) 17 Gm Pack) 17 gm PO Q6 BENI Stop: 03/06/22 05:59 Last Admin: 02/05/22 06:18 Dose: 17 gm Senna/Docusate Sodium (Docusate Sodium/Senna 50/8.6mg Tab) 2 tab PO HS BENI Stop: 03/05/22 20:59 Last Admin: 02/04/22 20:37 Dose: 2 tab Sodium Biphosphate/Sodium Phosphate (Sod Phosphate/Sod Biphosphate Enema 132 Ml Btl) 132 ml AK ONE PRN PRN Reason: Constipation Stop: 03/05/22 17:08 Tramadol HCl (Tramadol Hcl 50 Mg Tablet) 50 - 100 mg PO Q4H PRN PRN Reason: Moderate-Severe pain & Pre PT Stop: 03/05/22 17:08 Last Admin: 02/04/22 22:55 Dose: 100 mg Zolpidem Tartrate (Zolpidem Tartrate 10 Mg Tab) 10 mg PO HS PRN PRN Reason: Sleep Stop: 03/05/22 17:08 Last Admin: 02/04/22 22:55 Dose: 10 mg
[2022-02-05 09:05] LABS: BUN Creatinine Ratio 13.1 (10-20); Calcium 7.9 mg/dl (8.5-10.1); Creatinine Clr Calc Pharmacy 56.1 ml/min; Est GFR (African American) 55.4 ml/min; Est GFR (Non-African American) 47.8 ml/min; Magnesium 1.8 mg/dl (1.7-2.4); Phosphorus 1.9 mg/dl (2.5-4.9); Potassium 4.2 mmol/L (3.5-5.1)
--- NOTE | 2022-02-05 09:36 | Electrocardiogram Report ---
Test Reason : Blood Pressure : / mmHG Vent. Rate : 072 BPM Atrial Rate : 072 BPM P-R Int : 160 ms QRS Dur : 096 ms QT Int : 372 ms P-R-T Axes : 047 017 119 degrees QTc Int : 407 ms Normal sinus rhythm Nonspecific T wave abnormality Abnormal ECG When compared with ECG of 04-FEB-2022 10:54, Premature atrial complexes are no longer Present Nonspecific T wave abnormality, worse in Inferior leads Confirmed by Calos Zhao ([id number]) on 02/05/2022 9:36:22 AM Referred By: Prince Gomes Confirmed By:Sanjay Zhao
--- NOTE | 2022-02-05 10:58 | Cardiology Progress Note ---
Date of Service February 05, 2022 Assessment & Plan (1) S/P lumbar spinal fusion: (2) Abnormal EKG: Plan: -Yesterday patient developed acute symptoms of chest pain, dizziness, shakiness, and pounding in his chest while Dexathemthasone was being pushed. Symptoms last ed a few minutes and resolved. During this time, he was not on telemetry. EKG demonstrated NSR with mild lateral ST depression. -HS troponin trended upward at 553 last evening. Patient remained chest pain free. -due to spinal drain in place, no anticoagulation or antiplatelet therapy was recommended. -No atrial arrhythmias on monitor. -Echo was without regional wall motion abnormalities and normal LVEF Today, patient remains chest pain free without recurrent symptoms. Once spinal drain removed and acceptable with ortho surgery team, resume Eliquis for history of atrial arrhythmias. Given elevated troponin with mild EKG changes during this event, recommend outpatient nuclear stress testing as well, once he is recovered from spinal surgery. Case discussed with Dr. Cuellar. Admission and Anticipated Discharge Date Admission Date: February 03, 2022 Supervising Physician Co-Signing Physician Notes Supervising Physician Attestation: I have personally performed a history and physical examination on the patient. I agree with the physician res habilitation assistant's findings and plan as documented with the following additions. Subjective: Patient without any subjective cardiac complaints. Issues with restless night and he is tired this morning. Exam: Cardiovascular regular rhythm, no murmurs rubs or gallops Spine drain still in place draining serosanguineous fluid Data: High-sensitivity troponin 50--> 325--> 553 pg /ml Assessment and Plan: Continue observation -Agree with plan to avoid dexamethasone -Likely proceed with outpatient nuclear stress test DVT prophylaxis: SCDs Jero Cuellar, DO Subjective Patient resting in bed. Notable discomfort of the back with minimal repositioning. Reports he is unable to sleep due to pain. Denies recurrent chest pain since event yesterday. No SOB. No orthopnea, PND. Edema noted b/l, but chronic. Still has spinal drain in place Review of Systems Review of Systems: All systems reviewed & are unremarkable except as noted in HPI & below Physical Exam Constitutional: WD/WN, vitals as above Respiratory: normal respiratory effort, lungs clear to auscultation Cardiovascular: Rate/Rhythm: regular rate and regular rhythm Heart Sounds: no murmur Extremities: + edema (1+ pedal edema bilaterally-chronic per patient ) Gastrointestinal (Abdomen): normal bowel sounds, soft, nontender, no hepatosplenomegaly Neurologic: patellar DTR's 2+ bilat, sensation intact Results & Data ([facility]) Vital Signs (Past 12 Hours) Vital Signs Temp Pulse Pulse Pulse Resp BP Pulse Ox 02/05/22 08:21 37.0 C 88 20 123/72 93 02/05/22 07:03 99 H 02/05/22 05:40 36.8 C 84 16 120/64 90 02/05/22 03:39 81 02/04/22 23:52 37.0 C 70 18 161/61 H 95 02/04/22 23:38 72 O2 Del Method 02/05/22 08:21 Room Air 02/05/22 07:03 02/05/22 05:40 Room Air 02/05/22 03:39 Room Air 02/04/22 23:52 Room Air 02/04/22 23:38 Laboratory Results Cardiac Enzymes 02/04/22 02/04/22 Range/Units 12:03 18:49 Troponin I High Sens 325.6 H* D 553.1 H* D (0-20) pg/ml CBC 02/05/22 Range/Units 07:26 WBC 7.17 (4.8-10.8) K/ul RBC 4.57 L (4.63-6.08) M/uL Hgb 12.1 L (14.0-18.0) g/dl Hct 36.9 L (40.1-51.0) % Plt Count 123 L (130-400) K/uL Comprehensive Metabolic Panel 02/05/22 Range/Units 07:26 Sodium 138 (136-145) mmol/L Potassium 4.2 (3.5-5.1) mmol/L Chloride 106 (98-107) mmol/L Carbon Dioxide 29 (21-32) mmol/L BUN 19 (6-23) mg/dl Creatinine 1.45 H (0.6-1.4) mg/dl Glucose 94 (70-99(Fasting)) mg/dl Calcium 7.9 L (8.5-10.1) mg/dl Intake and Output 02/04/22 02/05/22 02/05/22 22:59 06:59 14:59 Intake Total 250 / 990 200 / 990 Output Total 835 / 1615 405 / 1615 Balance -585 / -625 -205 / -625 Intake: Oral 250 / 750 200 / 750 Output: Urine 760 / 1495 360 / 1495 Drain Output 75 / 120 45 / 120 Right Back 75 / 120 45 / 120 Diagnostic Findings Telemetry reviewed: NSR in the 60-80 bpm range. No concerning arrhythmias EKG reviewed from this morning: NSR without acute changes, but artifact noted limiting interpretation EKG from last night: NSR with mild T wave flattening in inferior leads and T wave inversion in lateral leads Echo reviewed: Mild concentric LVH No wall motion abnormalities noted LV systolic function is normal LVEF 65% Grade I diastolic dysfunction No significant valvular pathology Medications Administered Current Inpatient Medications Acetaminophen (Acetaminophen 500 Mg Tab) 1,000 mg PO Q8H PRN PRN Reason: MILD Pain Scale 1,2,3 & Pre PT Stop: 03/05/22 17:08 Last Admin: 02/04/22 06:33 Dose: 1,000 mg Al Hydrox/Mg Hydrox/Simethicone (Aluminum/Magnesium Susp 30 Ml Udc) 30 ml PO Q6H PRN PRN Reason: Dyspepsia Stop: 03/05/22 17:08 Bisacodyl (Bisacodyl 10 Mg Supp) 10 mg NM DAILY PRN PRN Reason: Constipation Stop: 03/05/22 17:08 Citalopram Hydrobromide (Citalopram 40 Mg Tab) 40 mg PO QAM [facility] Stop: 03/06/22 08:59 Last Admin: 02/05/22 07:13 Dose: 40 mg Diphenhydramine HCl (Diphenhydramine Capsule 25 Mg Cap) 25 mg PO Q6H PRN PRN Reason: Allergic Rhinitis/Insomnia Stop: 03/05/22 17:08 Famotidine (Famotidine 20 Mg Tab) 20 mg PO HS BENI Stop: 03/05/22 20:59 Last Admin: 02/04/22 20:32 Dose: 20 mg Famotidine (Famotidine 20 Mg Tab) 20 mg PO Q12H PRN PRN Reason: Dyspepsia Stop: 03/05/22 17:08 Hydromorphone HCl (Hydromorphone Inj 0.5 Mg/0.5 Ml Syr) 0.5 mg IV Q3H PRN PRN Reason: MODERATE Pain (Scale 4,5,6) & Pre PT Stop: 02/17/22 17:08 Hydromorphone HCl (Hydromorphone Inj 1 Mg/Ml Syringe) 1 mg IV Q3H PRN PRN Reason: SEVERE Pain (Scale 7,8,9,10) Stop: 02/17/22 17:08 Last Admin: 02/05/22 05:53 Dose: 1 mg Hydroxyzine HCl (Hydroxyzine Hcl 25 Mg Tab) 25 mg PO Q8H PRN PRN Reason: Anxiety Stop: 03/05/22 17:08 Promethazine HCl 12.5 mg/ (Sodium Chloride) 50.5 mls @ 202 mls/hr IV Q6H PRN PRN Reason: Nausea &/or Vomiting Stop: 03/05/22 17:08 Influenza Virus Vaccine Quadrival (Do Not Administer Flu Vaccine) 1 each N/A PRN PRN PRN Reason: Notification Stop: 03/05/22 17:08 Lorazepam (Lorazepam 0.5 Mg Tab) 0.5 mg PO Q8H PRN PRN Reason: Sedation/Anxiety Stop: 03/05/22 17:08 Last Admin: 02/04/22 01:01 Dose: 0.5 mg Lorazepam (Lorazepam 2 Mg/1 Ml Vial) 0.5 mg IV Q8H PRN PRN Reason: Sedation/Anxiety Stop: 03/05/22 17:08 Magnesium Hydroxide (Magnesium Hydroxide Susp 30 Ml Udc) 30 ml PO Q24H PRN PRN Reason: Constipation Stop: 03/05/22 17:08 Metoclopramide HCl (Metoclopramide Hcl Inj 5 Mg/Ml 2 Ml Vial) 10 mg IV Q6H PRN PRN Reason: Nausea &/or Vomiting Stop: 03/05/22 17:08 Naloxone HCl (Naloxone Hcl 0.4 Mg/1 Ml Vial/Carp) 0.1 mg IV Q5M PRN PRN Reason: Oversedation/Resp depression Stop: 03/05/22 17:08 Ondansetron HCl (Ondansetron Inj 2 Mg/Ml 2 Ml Vial) 4 mg IV Q6H PRN PRN Reason: Nausea &/or Vomiting Stop: 03/05/22 17:08 Ondansetron HCl (Ondansetron 4 Mg Od Tab) 4 mg PO Q6H PRN PRN Reason: Nausea Stop: 03/05/22 17:08 Oxycodone HCl (Oxycodone Hcl Ir 5 Mg Tab (Immediate Release)) 5 - 10 mg PO Q4H PRN PRN Reason: Pain & Pre PT Stop: 02/17/22 17:08 Last Admin: 02/04/22 20:32 Dose: 10 mg Pantoprazole Sodium (Pantoprazole 40 Mg Tab) 40 mg PO QAM [facility] Stop: 03/06/22 08:59 Last Admin: 02/05/22 07:13 Dose: 40 mg Pneumococcal Polyvalent Vaccine (Do Not Administer Pneumococcal Vaccine) 1 each N/A PRN PRN PRN Reason: Notification Stop: 03/05/22 17:08 Polyethylene Glycol (Polyethylene (Miralax) 17 Gm Pack) 17 gm PO Q6 [facility] Stop: 03/06/22 05:59 Last Admin: 02/05/22 10:40 Dose: 17 gm Senna/Docusate Sodium (Docusate Sodium/Senna 50/8.6mg Tab) 2 tab PO HS BENI Stop: 03/05/22 20:59 Last Admin: 02/04/22 20:37 Dose: 2 tab Sodium Biphosphate/Sodium Phosphate (Sod Phosphate/Sod Biphosphate Enema 132 Ml Btl) 132 ml NM ONE PRN PRN Reason: Constipation Stop: 03/05/22 17:08 Tramadol HCl (Tramadol Hcl 50 Mg Tablet) 50 - 100 mg PO Q4H PRN PRN Reason: Moderate-Severe pain & Pre PT Stop: 03/05/22 17:08 Last Admin: 02/04/22 22:55 Dose: 100 mg Zolpidem Tartrate (Zolpidem Tartrate 10 Mg Tab) 10 mg PO HS PRN PRN Reason: Sleep Stop: 03/05/22 17:08 Last Admin: 02/04/22 22:55 Dose: 10 mg
--- NOTE | 2022-02-05 14:57 | Orthopedic Progress Note ---
Date of Service February 05, 2022 Assessment & Plan (1) Neurogenic claudication due to lumbar spinal stenosis: Plan: At this time we will have him continue therapy as tolerated. He would be ready for discharge home tomorrow if cleared by medicine. Admission and Anticipated Discharge Date Admission Date: February 03, 2022 Subjective Patient's back pain is controlled leg pain improved and he is tolerating physical therapy denies any chest pain. He is anxious to go home. Physical Exam Physical Exam: On exam he is in bed. He is sitting up and is comfortable. Is good strength detailed testing lower extremities. He does have some retained fluid into his legs. Results & Data ([facility]) Vital Signs (Past 12 Hours) Vital Signs Temp Pulse Pulse Pulse Resp BP Pulse Ox 02/05/22 11:41 36.6 C 83 20 118/71 91 02/05/22 08:21 37.0 C 88 20 123/72 93 02/05/22 07:03 99 H 02/05/22 05:40 36.8 C 84 16 120/64 90 02/05/22 03:39 81 O2 Del Method 02/05/22 11:41 Room Air 02/05/22 08:21 Room Air 02/05/22 07:03 02/05/22 05:40 Room Air 02/05/22 03:39 Room Air
--- NOTE | 2022-02-05 18:34 | Electrocardiogram Report ---
Test Reason : Blood Pressure : / mmHG Vent. Rate : 086 BPM Atrial Rate : 086 BPM P-R Int : 152 ms QRS Dur : 094 ms QT Int : 408 ms P-R-T Axes : 054 021 090 degrees QTc Int : 488 ms Normal sinus rhythm Nonspecific T wave abnormality Abnormal ECG When compared with ECG of 04-FEB-2022 16:44, Nonspecific T wave abnormality no longer evident in Inferior leads QT has lengthened Confirmed by Calos Zhao ([id number] on 02/05/2022 6:34:34 PM Referred By: Prince Gomes Confirmed By:Sanjay Zhao
[2022-02-05] MEDS: traMADol HCL 50 MG TABLET PO PRN (20:09)
[2022-02-05] MEDS: FAMOTIDINE 20 MG TAB PO SCH (20:09)
[2022-02-05] MEDS: DOCUSATE SODIUM/SENNA 50/8.6MG TAB PO SCH (20:12)
[2022-02-05] MEDS: ACETAMINOPHEN 500 MG TAB PO PRN (22:48)
[2022-02-06] MEDS: POLYETHYLENE (MIRALAX) 17 GM PACK PO SCH ×4 (00:18→17:22)
[2022-02-06] MEDS: PANTOprazole 40 MG TAB PO SCH (08:37)
[2022-02-06] MEDS: CITALOPRAM 40 MG TAB PO SCH (08:37)
[2022-02-06] MEDS: oxyCODONE HCL IR 5 MG TAB (IMMEDIATE RELEASE) PO PRN (09:31)
--- NOTE | 2022-02-06 10:02 | Hospitalist Progress Note ---
Date of Service February 06, 2022 Assessment & Plan (1) Neurogenic claudication due to lumbar spinal stenosis: (2) S/P lumbar spinal fusion: Plan: - Transferred the patient to telemetry due to episode of shaking, tachycardia and lightheadedness post IV Decadron infusion (02/04 AM) - Contacted allergy/immunology regarding possible allergic reaction with underlying IGG deficiency and hx of Waldenstrom -discussion was held with Dr. Casarez- appreciate - reports that patient is well-known to his service and that he has previously reacted to different IV medications including IVIG with such a response as this before. He reports that if IV Decadron is necessary post procedurally then patient would likely be able to tolerate this at a lower dose. Discussed with Dr. Gomes and medication has been discontinued as this is a postoperative nausea/pain control support agent more so than a required medication for this patient. - troponin elevated -Echo obtained Mild concentric LVH. No regional wall motion abnormalities noted. LV systolic function is normal. LV EF 65 to 70%. Grade 1 diastolic dysfunction. No significant valvular pathology. -Cardiology consulted, appreciate their input - this AM (02/06), Afib noted on telemetry and patient was started on metoprolol by cardiology -Doppler was also obtained due to lower extremity edema and found DVT in left lower extremity. Discussed in detail this finding with cardiology and orthopedics. Patient to be started on IV heparin without bolus. Discussed risk of bleeding with the patient at the bedside. H&H recheck ordered for tonight. - Pain management, bowel regimen per the primary team - PT/OT consults Acute blood loss anemia -post op vs dilutional - expected - Pre-op Hgb 15.8 -->12.5 today (however stable from yesterday) - As we are planning to start IV heparin, will recheck H&H tonight and then again in the morning. 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 Castillo. Please do not hesitate to call with questions or concerns. At this time medicine service will follow along. Admission and Anticipated Discharge Date Admission Date: February 03, 2022 Subjective Patient seen in follow-up of medical consult status post spinal lumbar surgery. Patient also had adverse reaction to Decadron when he experienced shakes and chest tightness. Troponins were found elevated. Echocardiogram was ordered and reviewed by cardiology. This AM Afib on telemetry and pt started on metoprolol by cardiology. LE edema noted and dopplers obtained - unfortunately DVT found and results discussed w/ ortho and cardiology - plan to start pt on IV heparin (w/o bolus) Follow H&H tonight Currently patient is lying in bed, in no acute distress, resting His is present at the bedside. Patient is alert awake oriented answer questions appropriately. Currently denies any chest pain shortness of breath or palpitations. Denies any headache. Denies any abdominal pain nausea vomiting. Review of Systems Review of Systems: All systems reviewed & are unremarkable except as noted in Subjective Physical Exam Physical Exam: General: WD/WN M in NAD Head: Normocephalic, atraumatic ENT: PERRL, EOMI Chest: Clear to auscultation b/l, no adventitious breath sounds, no wheezing Cardiac: Regular rate and rhythm, no murmur, no JVD, normal peripheral pulses, good capillary refill Abdominal: NABS x 4 quadrants, soft, nondistended, nontender to palpation, no rebound or guarding Back: C/C/I, HONG drain in place Extremities: Normal inspection, TEDs on, + LE edema, moves extremities Psych: Normal mood and affect Neuro: awake, alert, answering questions appropriately, speech is clear, moves extremities Results & Data Results & Data ([facility]) Vital Signs (Past 12 Hours) Vital Signs Temp Pulse Pulse Pulse Resp BP BP 02/06/22 07:30 83 02/06/22 08:47 02/06/22 08:00 37.1 C 75 18 109/66 02/06/22 03:49 36.8 C 81 20 119/65 02/06/22 00:42 87 02/05/22 23:28 36.6 C 98 H 140 H 20 156/76 H Pulse Ox O2 Del Method 02/06/22 07:30 02/06/22 08:47 95 Room Air 02/06/22 08:00 93 Room Air 02/06/22 03:49 91 Room Air 02/06/22 00:42 02/05/22 23:28 94 Room Air Laboratory Results 02/06/22 02/06/22 02/06/22 Range/Units 16:51 10:10 10:10 WBC 6.61 (4.8-10.8) K/ul RBC 4.77 (4.63-6.08) M/uL Hgb 12.5 L (14.0-18.0) g/dl Hct 38.1 L (40.1-51.0) % MCV 79.9 L (80.0-100.0) fL MCH 26.2 (25.0-34.0) pg MCHC 32.8 (32.0-36.0) g/dL RDW Std Deviation 44.6 (36.4-46.3) fL RDW Coeff of Benedict 15.5 H (11.5-14.5) % Plt Count 126 L (130-400) K/uL MPV 10.2 (9.4-12.4) fL PT Pending INR Pending APTT Pending PTT Ratio Pending Sodium 137 (136-145) mmol/L Potassium 3.8 (3.5-5.1) mmol/L Chloride 103 (98-107) mmol/L Carbon Dioxide 30 (21-32) mmol/L Anion Gap 4 (3-11) BUN 18 (6-23) mg/dl Creatinine 1.45 H (0.6-1.4) mg/dl Est Cr Clr Drug Dosing 56.1 ml/min Est GFR ( Amer) 55.4 ml/min Est GFR (Non-Af Amer) 47.8 ml/min BUN/Creatinine Ratio 12.4 (10-20) Glucose 92 (70-99(Fasting)) mg/dl Calcium 8.5 (8.5-10.1) mg/dl Magnesium 1.8 (1.7-2.4) mg/dl Medications Administered Current Inpatient Medications Acetaminophen (Acetaminophen 500 Mg Tab) 1,000 mg PO Q8H PRN PRN Reason: MILD Pain Scale 1,2,3 & Pre PT Stop: 03/05/22 17:08 Last Admin: 02/05/22 22:48 Dose: 1,000 mg Al Hydrox/Mg Hydrox/Simethicone (Aluminum/Magnesium Susp 30 Ml Udc) 30 ml PO Q6H PRN PRN Reason: Dyspepsia Stop: 03/05/22 17:08 Bisacodyl (Bisacodyl 10 Mg Supp) [address] DAILY PRN PRN Reason: Constipation Stop: 03/05/22 17:08 Citalopram Hydrobromide (Citalopram 40 Mg Tab) 40 mg PO QAM [facility] Stop: 03/06/22 08:59 Last Admin: 02/06/22 08:37 Dose: 40 mg Diphenhydramine HCl (Diphenhydramine Capsule 25 Mg Cap) 25 mg PO Q6H PRN PRN Reason: Allergic Rhinitis/Insomnia Stop: 03/05/22 17:08 Famotidine (Famotidine 20 Mg Tab) 20 mg PO HS [facility] Stop: 03/05/22 20:59 Last Admin: 02/05/22 20:09 Dose: 20 mg Famotidine (Famotidine 20 Mg Tab) 20 mg PO Q12H PRN PRN Reason: Dyspepsia Stop: 03/05/22 17:08 Hydromorphone HCl (Hydromorphone Inj 0.5 Mg/0.5 Ml Syr) 0.5 mg IV Q3H PRN PRN Reason: MODERATE Pain (Scale 4,5,6) & Pre PT Stop: 02/17/22 17:08 Hydromorphone HCl (Hydromorphone Inj 1 Mg/Ml Syringe) 1 mg IV Q3H PRN PRN Reason: SEVERE Pain (Scale 7,8,9,10) Stop: 02/17/22 17:08 Last Admin: 02/05/22 05:53 Dose: 1 mg Hydroxyzine HCl (Hydroxyzine Hcl 25 Mg Tab) 25 mg PO Q8H PRN PRN Reason: Anxiety Stop: 03/05/22 17:08 Promethazine HCl 12.5 mg/ (Sodium Chloride) 50.5 mls @ 202 mls/hr IV Q6H PRN PRN Reason: Nausea &/or Vomiting Stop: 03/05/22 17:08 Heparin Sodium/Dextrose (Heparin Sodium/Dextrose) 25,000 units in 500 mls @ 20 mls/hr IV .Q24H BENI; Protocol Stop: 03/08/22 16:44 Influenza Virus Vaccine Quadrival (Do Not Administer Flu Vaccine) 1 each N/A PRN PRN PRN Reason: Notification Stop: 03/05/22 17:08 Lorazepam (Lorazepam 0.5 Mg Tab) 0.5 mg PO Q8H PRN PRN Reason: Sedation/Anxiety Stop: 03/05/22 17:08 Last Admin: 02/04/22 01:01 Dose: 0.5 mg Lorazepam (Lorazepam 2 Mg/1 Ml Vial) 0.5 mg IV Q8H PRN PRN Reason: Sedation/Anxiety Stop: 03/05/22 17:08 Magnesium Hydroxide (Magnesium Hydroxide Susp 30 Ml Udc) 30 ml PO Q24H PRN PRN Reason: Constipation Stop: 03/05/22 17:08 Metoclopramide HCl (Metoclopramide Hcl Inj 5 Mg/Ml 2 Ml Vial) 10 mg IV Q6H PRN PRN Reason: Nausea &/or Vomiting Stop: 03/05/22 17:08 Metoprolol Tartrate (Metoprolol Tartrate 25 Mg Tab) 25 mg PO BID [facility] Stop: 03/08/22 10:59 Last Admin: 02/06/22 11:43 Dose: 25 mg Naloxone HCl (Naloxone Hcl 0.4 Mg/1 Ml Vial/Carp) 0.1 mg IV Q5M PRN PRN Reason: Oversedation/Resp depression Stop: 03/05/22 17:08 Ondansetron HCl (Ondansetron Inj 2 Mg/Ml 2 Ml Vial) 4 mg IV Q6H PRN PRN Reason: Nausea &/or Vomiting Stop: 03/05/22 17:08 Ondansetron HCl (Ondansetron 4 Mg Od Tab) 4 mg PO Q6H PRN PRN Reason: Nausea Stop: 03/05/22 17:08 Oxycodone HCl (Oxycodone Hcl Ir 5 Mg Tab (Immediate Release)) 5 - 10 mg PO Q4H PRN PRN Reason: Pain & Pre PT Stop: 02/17/22 17:08 Last Admin: 02/06/22 09:31 Dose: 10 mg Pantoprazole Sodium (Pantoprazole 40 Mg Tab) 40 mg PO QAM [facility] Stop: 03/06/22 08:59 Last Admin: 02/06/22 08:37 Dose: 40 mg Pneumococcal Polyvalent Vaccine (Do Not Administer Pneumococcal Vaccine) 1 each N/A PRN PRN PRN Reason: Notification Stop: 03/05/22 17:08 Polyethylene Glycol (Polyethylene (Miralax) 17 Gm Pack) 17 gm PO Q6 [facility] Stop: 03/06/22 05:59 Last Admin: 02/06/22 11:45 Dose: 17 gm Senna/Docusate Sodium (Docusate Sodium/Senna 50/8.6mg Tab) 2 tab PO HS BENI Stop: 03/05/22 20:59 Last Admin: 02/05/22 20:12 Dose: 2 tab Sodium Biphosphate/Sodium Phosphate (Sod Phosphate/Sod Biphosphate Enema 132 Ml Btl) [address] ONE PRN PRN Reason: Constipation Stop: 03/05/22 17:08 Tramadol HCl (Tramadol Hcl 50 Mg Tablet) 50 - 100 mg PO Q4H PRN PRN Reason: Moderate-Severe pain & Pre PT Stop: 03/05/22 17:08 Last Admin: 02/05/22 20:09 Dose: 100 mg Zolpidem Tartrate (Zolpidem Tartrate 10 Mg Tab) 10 mg PO HS PRN PRN Reason: Sleep Stop: 03/05/22 17:08 Last Admin: 02/04/22 22:55 Dose: 10 mg
[2022-02-06 10:42] LABS: Hematocrit (blood only) 38.1 % (40.1-51.0); Hemoglobin 12.5 g/dl (14.0-18.0); Mean Corpuscular Hemoglobin 26.2 pg (25.0-34.0); Mean Corpuscular Hgb Conc 32.8 g/dL (32.0-36.0); Mean Corpuscular Volume 79.9 fL (80.0-100.0); Mean Platelet Volume 10.2 fL (9.4-12.4); Platelet Count 126 K/uL (130-400); RDW Coefficient of Variation 15.5 % (11.5-14.5); RDW Standard Deviation 44.6 fL (36.4-46.3); Red Blood Count 4.77 M/uL (4.63-6.08); White Blood Count 6.61 K/ul (4.8-10.8)
[2022-02-06] MEDS ORDERED: FUROSEMIDE INJ 20 MG/2 ML VIAL IV ONE (10:59)
[2022-02-06 11:03] LABS: BUN Creatinine Ratio 12.4 (10-20); Calcium 8.5 mg/dl (8.5-10.1); Creatinine Clr Calc Pharmacy 56.1 ml/min; Est GFR (African American) 55.4 ml/min; Est GFR (Non-African American) 47.8 ml/min; Magnesium 1.8 mg/dl (1.7-2.4); Potassium 3.8 mmol/L (3.5-5.1)
--- NOTE | 2022-02-06 11:10 | Cardiology Progress Note ---
Date of Service February 06, 2022 Assessment & Plan (1) S/P lumbar spinal fusion: (2) Abnormal EKG: (3) Paroxysmal atrial fibrillation with RVR: (4) Edema: (5) Chest pain: Plan -Patient developed acute symptoms of chest pain, dizziness, shakiness, and pounding in his chest while Dexathemthasone was being pushed several days ago in the post op setting. Symptoms lasted a few minutes and resolved. During this time, he was not on telemetry. EKG demonstrated NSR with mild lateral ST depression. -HS troponin trended upward at 553. Patient remained chest pain free. Echo revealed normal wall motion and normal LVEF. -due to spinal drain in place, no anticoagulation or antiplatelet therapy was recommended. -Patient takes Eliquis for remote history of PAF and history of DVT. Earlier today he had an episode of PAF lasting approx 1.5 hours. Converted to NSR spontaneously. Was asymptomatic. Start Metoprolol tartrate 25 mg BID. Unable to resume Eliquis at this time due to spinal drain. Due to worsening LE edema, and history of DVT in the past, proceed with venous duplex. Furosemide 20 mg IV x 1 dose ordered to aid with volume status. Repeat BMP pending. Today, patient remains chest pain free without recurrent symptoms. Once spinal drain removed and acceptable with ortho surgery team, resume Eliquis Given elevated troponin with mild EKG changes during events in the post op setting, recommend outpatient nuclear stress testing as well, once he is recovered from spinal surgery. Case discussed with Dr. Cuellar. Will follow Admission and Anticipated Discharge Date Admission Date: February 03, 2022 Supervising Physician Co-Signing Physician Notes Patient seen and examined, case discussed with Mayte Rehman PA-C. Agree with findings and plan as noted. Refer to separate progress note. Subjective Patient resting in bed. Increased pain this morning. Received pain medications. Mild numbness in his right leg. He denies recurrent chest pain or dyspnea. No palpitations or tachypalpitations. He reports increased edema and "tightness" in his feet. Compression stockings are bothering him. Still has spinal drain in place. He had about 1 hour and 20 min episode of Afib RVR this morning between 5:00 AM and 6:18 AM. He was asymptomatic. Converted to NSR spontaneously. Currently NSR. Review of Systems Review of Systems: All systems reviewed & are unremarkable except as noted in HPI & below Physical Exam Constitutional: WD/WN, vitals as above Neck: normal visual inspection Respiratory: normal respiratory effort, lungs clear to auscultation Cardiovascular: Rate/Rhythm: regular rate and regular rhythm Heart Sounds: no murmur Extremities: + edema (2-3+ pedal and pretibial edema noted b/l) Gastrointestinal (Abdomen): normal bowel sounds, soft, nontender, no hepatosplenomegaly Neurologic: patellar DTR's 2+ bilat, sensation intact Psychiatric: A+Ox3, euthymic affect Results & Data ([facility]) Vital Signs (Past 12 Hours) Vital Signs Temp Pulse Pulse Pulse Resp BP BP 02/06/22 07:30 83 02/06/22 08:47 02/06/22 08:00 37.1 C 75 18 109/66 02/06/22 03:49 36.8 C 81 20 119/65 02/06/22 00:42 87 02/05/22 23:28 36.6 C 98 H 140 H 20 156/76 H Pulse Ox O2 Del Method 02/06/22 07:30 02/06/22 08:47 95 Room Air 02/06/22 08:00 93 Room Air 02/06/22 03:49 91 Room Air 02/06/22 00:42 02/05/22 23:28 94 Room Air Laboratory Results Labs pending CBC 02/06/22 Range/Units 10:10 WBC 6.61 (4.8-10.8) K/ul RBC 4.77 (4.63-6.08) M/uL Hgb 12.5 L (14.0-18.0) g/dl Hct 38.1 L (40.1-51.0) % Plt Count 126 L (130-400) K/uL Intake and Output 02/05/22 02/06/22 02/06/22 22:59 06:59 14:59 Intake Total 475 / 475 Output Total 920 / 1350 430 / 1350 450 / 450 Balance -445 / -875 -430 / -875 -450 / -450 Intake: Oral 475 / 475 Output: Urine 825 / 1225 400 / 1225 450 / 450 Drain Output 95 / 125 30 / 125 Right Back 95 / 125 30 / 125 BMP currently pending at 11:05 AM Diagnostic Findings Telemetry reviewed: Patient had an episode of atrial fibrillation with rapid ventricular response in the 120s from around 5 AM to 6:18 AM this morning. He converted spontaneously to normal sinus rhythm and currently in the 80s. Medications Administered Current Inpatient Medications Acetaminophen (Acetaminophen 500 Mg Tab) 1,000 mg PO Q8H PRN PRN Reason: MILD Pain Scale 1,2,3 & Pre PT Stop: 03/05/22 17:08 Last Admin: 02/05/22 22:48 Dose: 1,000 mg Al Hydrox/Mg Hydrox/Simethicone (Aluminum/Magnesium Susp 30 Ml Udc) 30 ml PO Q6H PRN PRN Reason: Dyspepsia Stop: 03/05/22 17:08 Bisacodyl (Bisacodyl 10 Mg Supp) 10 mg ND DAILY PRN PRN Reason: Constipation Stop: 03/05/22 17:08 Citalopram Hydrobromide (Citalopram 40 Mg Tab) 40 mg PO QAM [facility] Stop: 03/06/22 08:59 Last Admin: 02/06/22 08:37 Dose: 40 mg Diphenhydramine HCl (Diphenhydramine Capsule 25 Mg Cap) 25 mg PO Q6H PRN PRN Reason: Allergic Rhinitis/Insomnia Stop: 03/05/22 17:08 Famotidine (Famotidine 20 Mg Tab) 20 mg PO HS [facility] Stop: 03/05/22 20:59 Last Admin: 02/05/22 20:09 Dose: 20 mg Famotidine (Famotidine 20 Mg Tab) 20 mg PO Q12H PRN PRN Reason: Dyspepsia Stop: 03/05/22 17:08 Hydromorphone HCl (Hydromorphone Inj 0.5 Mg/0.5 Ml Syr) 0.5 mg IV Q3H PRN PRN Reason: MODERATE Pain (Scale 4,5,6) & Pre PT Stop: 02/17/22 17:08 Hydromorphone HCl (Hydromorphone Inj 1 Mg/Ml Syringe) 1 mg IV Q3H PRN PRN Reason: SEVERE Pain (Scale 7,8,9,10) Stop: 02/17/22 17:08 Last Admin: 02/05/22 05:53 Dose: 1 mg Hydroxyzine HCl (Hydroxyzine Hcl 25 Mg Tab) 25 mg PO Q8H PRN PRN Reason: Anxiety Stop: 03/05/22 17:08 Promethazine HCl 12.5 mg/ (Sodium Chloride) 50.5 mls @ 202 mls/hr IV Q6H PRN PRN Reason: Nausea &/or Vomiting Stop: 03/05/22 17:08 Influenza Virus Vaccine Quadrival (Do Not Administer Flu Vaccine) 1 each N/A PRN PRN PRN Reason: Notification Stop: 03/05/22 17:08 Lorazepam (Lorazepam 0.5 Mg Tab) 0.5 mg PO Q8H PRN PRN Reason: Sedation/Anxiety Stop: 03/05/22 17:08 Last Admin: 02/04/22 01:01 Dose: 0.5 mg Lorazepam (Lorazepam 2 Mg/1 Ml Vial) 0.5 mg IV Q8H PRN PRN Reason: Sedation/Anxiety Stop: 03/05/22 17:08 Magnesium Hydroxide (Magnesium Hydroxide Susp 30 Ml Udc) 30 ml PO Q24H PRN PRN Reason: Constipation Stop: 03/05/22 17:08 Metoclopramide HCl (Metoclopramide Hcl Inj 5 Mg/Ml 2 Ml Vial) 10 mg IV Q6H PRN PRN Reason: Nausea &/or Vomiting Stop: 03/05/22 17:08 Metoprolol Tartrate (Metoprolol Tartrate 25 Mg Tab) 25 mg PO BID BENI Stop: 03/08/22 10:59 Naloxone HCl (Naloxone Hcl 0.4 Mg/1 Ml Vial/Carp) 0.1 mg IV Q5M PRN PRN Reason: Oversedation/Resp depression Stop: 03/05/22 17:08 Ondansetron HCl (Ondansetron Inj 2 Mg/Ml 2 Ml Vial) 4 mg IV Q6H PRN PRN Reason: Nausea &/or Vomiting Stop: 03/05/22 17:08 Ondansetron HCl (Ondansetron 4 Mg Od Tab) 4 mg PO Q6H PRN PRN Reason: Nausea Stop: 03/05/22 17:08 Oxycodone HCl (Oxycodone Hcl Ir 5 Mg Tab (Immediate Release)) 5 - 10 mg PO Q4H PRN PRN Reason: Pain & Pre PT Stop: 02/17/22 17:08 Last Admin: 02/06/22 09:31 Dose: 10 mg Pantoprazole Sodium (Pantoprazole 40 Mg Tab) 40 mg PO QAM [facility]I Stop: 03/06/22 08:59 Last Admin: 02/06/22 08:37 Dose: 40 mg Pneumococcal Polyvalent Vaccine (Do Not Administer Pneumococcal Vaccine) 1 each N/A PRN PRN PRN Reason: Notification Stop: 03/05/22 17:08 Polyethylene Glycol (Polyethylene (Miralax) 17 Gm Pack) 17 gm PO Q6 BENI Stop: 03/06/22 05:59 Last Admin: 02/06/22 05:43 Dose: 17 gm Senna/Docusate Sodium (Docusate Sodium/Senna 50/8.6mg Tab) 2 tab PO HS BENI Stop: 03/05/22 20:59 Last Admin: 02/05/22 20:12 Dose: 2 tab Sodium Biphosphate/Sodium Phosphate (Sod Phosphate/Sod Biphosphate Enema 132 Ml Btl) 132 ml ND ONE PRN PRN Reason: Constipation Stop: 03/05/22 17:08 Tramadol HCl (Tramadol Hcl 50 Mg Tablet) 50 - 100 mg PO Q4H PRN PRN Reason: Moderate-Severe pain & Pre PT Stop: 03/05/22 17:08 Last Admin: 02/05/22 20:09 Dose: 100 mg Zolpidem Tartrate (Zolpidem Tartrate 10 Mg Tab) 10 mg PO HS PRN PRN Reason: Sleep Stop: 03/05/22 17:08 Last Admin: 02/04/22 22:55 Dose: 10 mg
--- NOTE | 2022-02-06 11:11 | Orthopedic Progress Note ---
Date of Service February 06, 2022 Assessment & Plan (1) Neurogenic claudication due to lumbar spinal stenosis: Plan: At this time is progressing appropriately from orthopedic standpoint. If cleared by medicine I would allow him to go home today. He may reinitiate E liquis this Thursday. Admission and Anticipated Discharge Date Admission Date: February 03, 2022 Subjective Back pain controlled leg pain improved Physical Exam Physical Exam: On exam he is comfortable. Is good strength testing. HONG drain decreasing appropriately. Results & Data ([facility]) Vital Signs (Past 12 Hours) Vital Signs Temp Pulse Pulse Pulse Resp BP BP 02/06/22 07:30 83 02/06/22 08:47 02/06/22 08:00 37.1 C 75 18 109/66 02/06/22 03:49 36.8 C 81 20 119/65 02/06/22 00:42 87 02/05/22 23:28 36.6 C 98 H 140 H 20 156/76 H Pulse Ox O2 Del Method 02/06/22 07:30 02/06/22 08:47 95 Room Air 02/06/22 08:00 93 Room Air 02/06/22 03:49 91 Room Air 02/06/22 00:42 02/05/22 23:28 94 Room Air
[2022-02-06] MEDS: METOPROLOL TARTRATE 25 MG TAB PO SCH ×2 (11:43→20:43)
--- NOTE | 2022-02-06 16:00 | Ultrasound Report ---
US venous doppler LE BI CLINICAL HISTORY: post op; b/l LE edema TECHNIQUE: Bilateral lower extremity real-time compression venous ultrasound with Color Doppler imagi ng. Utilizing real-time ultrasonic imaging multiple real time high-resolution ultrasonic images with compression and noncompression maneuvers of the deep venous system in addition to color doppler imagi ng were performed from the common femoral vein through the proximal calf veins. COMPARISON: Comparison is made to bilateral venous ultrasound 06/22/2020 FINDINGS: Exam is limited by bilateral lower extremity edema. There is a nearly occlusive thrombus seen in the left femoral vein with possible minimal extension into the popliteal vein. Left peroneal veins are po eufemia visualized and there is suggestion of interrupted flow. Slow flow is also seen in the common fem oral vein and greater saphenous vein. No right DVT is seen. Impression: Nearly occlusive thrombus in the common femoral vein with possible minimal extension to the popliteal vein. There is slow flow in the poorly visualized peroneal vein, nonocclusive thrombus cannot be exc luded. Of note, although the left femoral vein thrombus was seen on prior exam in 2020, this thrombus is favored to be of more recent origin. ACT 112: Negative or not required by law. Electronically signed by: Lenny Almeida M.D. 02/06/2022 3:59 PM
--- NOTE | 2022-02-06 16:34 | Communication Note ---
Date of Service: February 06, 2022 Supervising Physician Attestation: I have personally performed a history and physical examination on the patient. I agree with the physician assistant production manager's findings and plan as documented with the following additions. Subjective: Patient seen in cardiology follow-up. Denies chest discomfort or shortness of breath. Postoperative back pain well controlled at present. Mental status improved compared to yesterday and he had a more restful night last night. He has a history of lower extremity edema, but this is worse, with acute worsening of his left lower extremity edema. This morning at 5 AM patient was noted to have an episode of atrial fibrillation with rapid ventricular response, ventricular rate in the 150s, he subsequently spontaneously converted back to sinus rhythm at approximately 6:15 AM. Since that time he has remained in sinus rhythm in the 80s. Exam: Temp Pulse Resp BP Pulse Ox O2 Del Method O2 Flow Rate 36.7 C 83 18 147/78 H 95 2 02/06/22 11:05 02/06/22 15:39 02/06/22 11:05 02/06/22 11:05 02/06/22 11:05 02/06/22 11:05 02/04/22 08:30 General appearance: Awake and oriented, no acute distress Pulmonary: Clear to auscultation bilaterally Cardiovascular: Regular rate, no murmurs Extremities: 2+ bilateral lower extremity edema, left lower leg greater than right, with bulging veins consistent with high venous pressure Data: EKG 02/05/2022: Sinus rhythm at 80 bpm, nonspecific lateral repolarization changes. A lower extremity venous duplex was performed today for evaluation of progress cyndy left greater than right lower extremity edema, with patient having history of DVT in Jun, 2020: -Summary of radiology report CLINICAL HISTORY: post op; b/l LE edema FINDINGS: Exam is limited by bilateral lower extremity edema. There is a nearly occlusive thrombus seen in the left femoral vein with possible minimal extension into the popliteal vein. Left peroneal veins are poorly visualized and there is suggestion of interrupted flow. Slow flow is also seen in the common femoral vein and greater saphenous vein. No right DVT is seen. Impression: Nearly occlusive thrombus in the common femoral vein with possible minimal extension to the popliteal vein. There is slow flow in the poorly visualized peroneal vein, nonocclusive thrombus cannot be excluded. Of note, although the left femoral vein thrombus was seen on prior exam in 2020, this thrombus is favored to be of more recent origin. Assessment : Self-limited episode of dizziness, chest pounding with administration of Decadron on postoperative day 1 status post lumbar spine surgery History of atrial fibrillation, ablation performed 2009, with asymptomatic 75- minute episode of recurrent atrial fibrillation this morning 02/06/2022 Progressive left lower extremity edema, findings of near occlusive thrombus of the left femoral vein Plan: Metoprolol 25 mg twice daily added this morning after the episode of atrial fibrillation Patient has been treated with Eliquis since the diagnosis of DVT in 2020 with anticoagulation interrupted to allow spine surgery. Given postoperative state, progressive left greater than right lower extremity edema, and episode of atrial fibrillation, venous duplex performed with findings of left lower extremity DVT, appearance suggests acute DVT Patient is currently postoperative day 3 status post lumbar spine surgery. Drain still in place. I spoke to Dr Gomes of spine surgery by phone with regards to the LE duplex results. My advice is to start an unfractionated heparin infusion, low dose protocol without a loading bolus, to allow anticoagulation, but to minimize bleeding risk. If post operative bleeding occurs heparing can be held. If he tolerates the heparin, can transition him back to his home Eliquis in a few day.T he patient's epidural drain remains in place. Dr Gomes concurred with the plan. Case discussed by phone with Dr Malin. Will monitor H and H. Jero Cuellar, DO
[2022-02-06] MEDS ORDERED: Heparin IV Adult Wt-Based Low-Dose *NO* Bolus Protocol IV STA (16:53)
[2022-02-06 17:13] LABS: Partial Thromboplastin Time 28.7 Seconds (21.0-31.0); Prothrombin Time 10.2 Seconds (9.0-12.0)
--- NOTE | 2022-02-06 17:22 | Electrocardiogram Report ---
Test Reason : Blood Pressure : / mmHG Vent. Rate : 088 BPM Atrial Rate : 088 BPM P-R Int : 148 ms QRS Dur : 090 ms QT Int : 422 ms P-R-T Axes : 062 040 060 degrees QTc Int : 510 ms Normal sinus rhythm Nonspecific ST and T wave abnormality Prolonged QT Abnormal ECG When compared with ECG of 05-FEB-2022 09:33, Nonspecific T wave abnormality now evident in Inferior leads Confirmed by Calos Zhao ([id number]) on 02/06/2022 5:22:21 PM Referred By: Prince Gomes Confirmed By:Sanjay Zhao
[2022-02-06] MEDS: HEPARIN SODIUM/DEXTROSE 25,000 UNITS/500 ML BAG IV SCH (17:26)
[2022-02-06] MEDS: ACETAMINOPHEN 500 MG TAB PO PRN (20:42)
[2022-02-06] MEDS: FAMOTIDINE 20 MG TAB PO SCH (20:43)
[2022-02-06] MEDS: DOCUSATE SODIUM/SENNA 50/8.6MG TAB PO SCH (20:43)
[2022-02-06 23:05] LABS: Hematocrit (blood only) 39.2 % (40.1-51.0); Hemoglobin 12.9 g/dl (14.0-18.0)
[2022-02-06 23:27] LABS: Partial Thromboplastin Ratio 1.3; Partial Thromboplastin Time 35.9 Seconds (21.0-31.0)
[2022-02-07] MEDS: HEPARIN SOD (PORCINE) 1000 UNIT/ML IV ONE ×2 (00:06→00:31)
[2022-02-07] MEDS: POLYETHYLENE (MIRALAX) 17 GM PACK PO SCH ×5 (00:11→21:44)
[2022-02-07] MEDS: ZOLPIDEM TARTRATE 10 MG TAB PO PRN ×2 (00:11→23:02)
[2022-02-07 08:00] LABS: BUN Creatinine Ratio 14.1 (10-20); Calcium 8.2 mg/dl (8.5-10.1); Creatinine Clr Calc Pharmacy 57.2 ml/min; Est GFR (African American) 56.8 ml/min; Hematocrit (blood only) 36.2 % (40.1-51.0); Hemoglobin 12.1 g/dl (14.0-18.0); Mean Corpuscular Hemoglobin 26.5 pg (25.0-34.0); Mean Corpuscular Hgb Conc 33.4 g/dL (32.0-36.0); Mean Corpuscular Volume 79.4 fL (80.0-100.0); Mean Platelet Volume 10.4 fL (9.4-12.4); Platelet Count 142 K/uL (130-400); Potassium 3.8 mmol/L (3.5-5.1); RDW Coefficient of Variation 15.6 % (11.5-14.5); RDW Standard Deviation 44.5 fL (36.4-46.3); Red Blood Count 4.56 M/uL (4.63-6.08); White Blood Count 5.49 K/ul (4.8-10.8)
[2022-02-07 08:06] LABS: Partial Thromboplastin Ratio 1.7
[2022-02-07 08:07] LABS: Partial Thromboplastin Time 45.8 Seconds (21.0-31.0)
[2022-02-07] MEDS: CITALOPRAM 40 MG TAB PO SCH (09:14)
[2022-02-07] MEDS: METOPROLOL TARTRATE 25 MG TAB PO SCH ×2 (09:15→21:43)
[2022-02-07] MEDS: PANTOprazole 40 MG TAB PO SCH (09:15)
--- NOTE | 2022-02-07 10:05 | Cardiology Progress Note ---
Date of Service February 07, 2022 Assessment & Plan (1) S/P lumbar spinal fusion: (2) Abnormal EKG: (3) Paroxysmal atrial fibrillation with RVR: (4) Edema: (5) Chest pain: (6) Acute deep vein thrombosis (DVT): Plan -Patient developed acute symptoms of chest pain, dizziness, shakiness, and pounding in his chest while Dexathemthasone was being pushed several days ago in the post op setting. Symptoms lasted a few minutes and resolved. During this time, he was not on telemetry. EKG demonstrated NSR with mild lateral ST depression. -HS troponin trended upward at 553. Patient remained chest pain free. Echo revealed normal wall motion and normal LVEF. -due to spinal drain in place, no anticoagulation or antiplatelet therapy was recommended at that time. -Patient takes Eliquis as outpatient. This was not resumed due to recent spinal surgery. Yesterday patient had an episode of PAF lasting approx 1.5 hours. Converted to NSR spontaneously. Was asymptomatic. Metoprolol tartrate 25 mg BID was initiated. No recurrent arrhythmias yesterday, overnight or this morning. Unable to resume Eliquis at this time due to spinal drain. Due to worsening LE edema, and history of DVT in the past, venous duplex was completed and demonstrated left sided DVT. After discussion with spine surgeon Low dose IV heparin was initiated. Monitor for signs/symptoms of bleeding. Drain remains in place. No increase in production. Plan is to continue heparin until Thursday when it is felt safe to resume full anticoagulation with Eliquis Furosemide 20 mg IV provided as well to aid with edema, improving. Repeat dose of furosemide 20 mg today with potassium. Case discussed with Dr. Cuellar. Will follow. Admission and Anticipated Discharge Date Admission Date: February 03, 2022 Supervising Physician Co-Signing Physician Notes Supervising Physician Attestation: I have personally performed a history and physical examination on the patient. I agree with the physician assistant terminal manager's findings and plan as documented with the following additions. Subjective: Patient without chest discomfort, shortness of breath, or palpitations. Lower extremity edema subjectively improved, and improve on exam. Compression stockings were removed. No skin breakdown. Exam: Cardiovascular: Regular rhythm, no murmurs rubs or gallops, 2+ lower extremity, pedal edema, however improved compared to 02/[address], draining minimal serosanguineous fluid Data: Hemoglobin stable, 12.1 PTT 45.8 seconds Potassium 3.8 Creatinine relatively stable 1.42 Assessment and Plan: -As noted above -furosemide 20 mg x 1 this am -Continue with Toprol tartrate 25 mg twice daily -Continue unfractionated heparin infusion, low-dose protocol -Monitor hemoglobin, spinal drain output -Initial spine surgery plan had been to resume his outpatient anticoagulation with Eliquis on 02/09/2022. -As long as he remains stable from a bleeding standpoint, when the time comes, we will discontinue his heparin to allow drain removal. Then transition to Eliquis. Dr Tawanna bejarano for our service on 02/08, 02/09/22 Jero Cuellar, DO Subjective Patient sitting at edge of bed eating breakfast. Back pain controlled this morning. He denies lower extremity pain. Edema improved from yesterday but remains present. No recurrent chest pain or SOB. No palpitations. Review of Systems Review of Systems: All systems reviewed & are unremarkable except as noted in HPI & below Physical Exam Constitutional: WD/WN, vitals as above Neck: normal visual inspection Respiratory: normal respiratory effort, lungs clear to auscultation Cardiovascular: Rate/Rhythm: regular rate and regular rhythm Heart Sounds: no murmur Extremities: + edema (2+ pedal and pretibial edema) Gastrointestinal (Abdomen): normal bowel sounds, soft, nontender, no hepatosplenomegaly Neurologic: patellar DTR's 2+ bilat, sensation intact Psychiatric: A+Ox3, euthymic affect Results & Data ([facility]) Vital Signs (Past 12 Hours) Vital Signs Temp Pulse Pulse Resp BP Pulse Ox O2 Del Method 02/07/22 07:53 37.4 C 75 20 108/69 91 Room Air 02/07/22 07:00 67 02/07/22 02:41 79 02/06/22 22:40 37 C 78 18 102/61 92 Room Air Laboratory Results Coagulation 02/06/22 02/06/22 02/07/22 Range/Units 16:51 22:41 07:23 PT 10.2 (9.0-12.0) Seconds APTT 28.7 35.9 H 45.8 H* (21.0-31.0) Seconds CBC 12/02/06/22 02/07/22 Range/Units 10:10 22:41 07:23 WBC 6.61 5.49 (4.8-10.8) K/ul RBC 4.77 4.56 L (4.63-6.08) M/uL Hgb 12.5 L 12.9 L 12.1 L (14.0-18.0) g/dl Hct 38.1 L 39.2 L 36.2 L (40.1-51.0) % Plt Count 126 L 142 (130-400) K/uL Comprehensive Metabolic Panel 02/06/22 02/07/22 Range/Units 10:10 07:23 Sodium 137 138 (136-145) mmol/L Potassium 3.8 3.8 (3.5-5.1) mmol/L Chloride 103 102 (98-107) mmol/L Carbon Dioxide 30 31 (21-32) mmol/L BUN 18 20 (6-23) mg/dl Creatinine 1.45 H 1.42 H (0.6-1.4) mg/dl Glucose 92 95 (70-99(Fasting)) mg/dl Calcium 8.5 8.2 L (8.5-10.1) mg/dl Intake and Output 02/06/22 02/07/22 02/07/22 22:59 06:59 14:59 Intake Total 976 / 1286.667 310.667 / 1286.667 181.317 / 181.317 Output Total 35 / 485 Balance 941 / 801.667 310.667 / 801.667 181.317 / 181.317 Intake: IV 31 / 141.667 110.667 / 141.667 181.317 / 181.317 Heparin Sodium/Dextrose 25,000 31 / 141.667 110.667 / 141.667 181.317 / 181.317 units In 500 ml @ 1,150 UNITS/ HR 23 mls/hr IV .[id number] [facility] Rx #:[id number] Oral 945 / 1145 200 / 1145 Output: Drain Output 35 / 35 Right Back 35 / 35 Diagnostic Findings Telemetry reviewed: NSR in the 60-70 bpm range. no recurrent afib. Venous duplex yesterday, 02/06/22 report reviewed: Impression: Nearly occlusive thrombus in the common femoral vein with possible minimal extension to the popliteal vein. There is slow flow in the poorly visualized peroneal vein, nonocclusive thrombus cannot be excluded. Of note, although the left femoral vein thrombus was seen on prior exam in 2020, this thrombus is favored to be of more recent origin. Medications Administered Current Inpatient Medications Acetaminophen (Acetaminophen 500 Mg Tab) 1,000 mg PO Q8H PRN PRN Reason: MILD Pain Scale 1,2,3 & Pre PT Stop: 03/05/22 17:08 Last Admin: 02/06/22 20:42 Dose: 1,000 mg Al Hydrox/Mg Hydrox/Simethicone (Aluminum/Magnesium Susp 30 Ml Udc) 30 ml PO Q6H PRN PRN Reason: Dyspepsia Stop: 03/05/22 17:08 Bisacodyl (Bisacodyl 10 Mg Supp) 10 mg MT DAILY PRN PRN Reason: Constipation Stop: 03/05/22 17:08 Citalopram Hydrobromide (Citalopram 40 Mg Tab) 40 mg PO QAM [facility] Stop: 03/06/22 08:59 Last Admin: 02/07/22 09:14 Dose: 40 mg Diphenhydramine HCl (Diphenhydramine Capsule 25 Mg Cap) 25 mg PO Q6H PRN PRN Reason: Allergic Rhinitis/Insomnia Stop: 03/05/22 17:08 Famotidine (Famotidine 20 Mg Tab) 20 mg PO HS [facility] Stop: 03/05/22 20:59 Last Admin: 02/06/22 20:43 Dose: 20 mg Famotidine (Famotidine 20 Mg Tab) 20 mg PO Q12H PRN PRN Reason: Dyspepsia Stop: 03/05/22 17:08 Hydromorphone HCl (Hydromorphone Inj 0.5 Mg/0.5 Ml Syr) 0.5 mg IV Q3H PRN PRN Reason: MODERATE Pain (Scale 4,5,6) & Pre PT Stop: 02/17/22 17:08 Hydromorphone HCl (Hydromorphone Inj 1 Mg/Ml Syringe) 1 mg IV Q3H PRN PRN Reason: SEVERE Pain (Scale 7,8,9,10) Stop: 02/17/22 17:08 Last Admin: 02/05/22 05:53 Dose: 1 mg Hydroxyzine HCl (Hydroxyzine Hcl 25 Mg Tab) 25 mg PO Q8H PRN PRN Reason: Anxiety Stop: 03/05/22 17:08 Promethazine HCl 12.5 mg/ (Sodium Chloride) 50.5 mls @ 202 mls/hr IV Q6H PRN PRN Reason: Nausea &/or Vomiting Stop: 03/05/22 17:08 Heparin Sodium/Dextrose (Heparin Sodium/Dextrose) 25,000 units in 500 mls @ 25 mls/hr IV .Q20H BENI; Protocol Stop: 03/08/22 16:44 Last Titration: 02/07/22 08:24 Dose: 1,250 units/hr, 25 mls/hr Influenza Virus Vaccine Quadrival (Do Not Administer Flu Vaccine) 1 each N/A PRN PRN PRN Reason: Notification Stop: 03/05/22 17:08 Lorazepam (Lorazepam 0.5 Mg Tab) 0.5 mg PO Q8H PRN PRN Reason: Sedation/Anxiety Stop: 03/05/22 17:08 Last Admin: 02/04/22 01:01 Dose: 0.5 mg Lorazepam (Lorazepam 2 Mg/1 Ml Vial) 0.5 mg IV Q8H PRN PRN Reason: Sedation/Anxiety Stop: 03/05/22 17:08 Magnesium Hydroxide (Magnesium Hydroxide Susp 30 Ml Udc) 30 ml PO Q24H PRN PRN Reason: Constipation Stop: 03/05/22 17:08 Metoclopramide HCl (Metoclopramide Hcl Inj 5 Mg/Ml 2 Ml Vial) 10 mg IV Q6H PRN PRN Reason: Nausea &/or Vomiting Stop: 03/05/22 17:08 Metoprolol Tartrate (Metoprolol Tartrate 25 Mg Tab) 25 mg PO BID [facility] Stop: 03/08/22 10:59 Last Admin: 02/07/22 09:15 Dose: 25 mg Naloxone HCl (Naloxone Hcl 0.4 Mg/1 Ml Vial/Carp) 0.1 mg IV Q5M PRN PRN Reason: Oversedation/Resp depression Stop: 03/05/22 17:08 Ondansetron HCl (Ondansetron Inj 2 Mg/Ml 2 Ml Vial) 4 mg IV Q6H PRN PRN Reason: Nausea &/or Vomiting Stop: 03/05/22 17:08 Ondansetron HCl (Ondansetron 4 Mg Od Tab) 4 mg PO Q6H PRN PRN Reason: Nausea Stop: 03/05/22 17:08 Last Admin: 02/06/22 20:42 Dose: 4 mg Oxycodone HCl (Oxycodone Hcl Ir 5 Mg Tab (Immediate Release)) 5 - 10 mg PO Q4H PRN PRN Reason: Pain & Pre PT Stop: 02/17/22 17:08 Last Admin: 02/06/22 09:31 Dose: 10 mg Pantoprazole Sodium (Pantoprazole 40 Mg Tab) 40 mg PO QAM [facility] Stop: 03/06/22 08:59 Last Admin: 02/07/22 09:15 Dose: 40 mg Pneumococcal Polyvalent Vaccine (Do Not Administer Pneumococcal Vaccine) 1 each N/A PRN PRN PRN Reason: Notification Stop: 03/05/22 17:08 Polyethylene Glycol (Polyethylene (Miralax) 17 Gm Pack) 17 gm PO Q6 [facility] Stop: 03/06/22 05:59 Last Admin: 02/07/22 05:44 Dose: Not Given Senna/Docusate Sodium (Docusate Sodium/Senna 50/8.6mg Tab) 2 tab PO HS [facility] Stop: 03/05/22 20:59 Last Admin: 02/06/22 20:43 Dose: Not Given Sodium Biphosphate/Sodium Phosphate (Sod Phosphate/Sod Biphosphate Enema 132 Ml Btl) 132 ml MT ONE PRN PRN Reason: Constipation Stop: 03/05/22 17:08 Tramadol HCl (Tramadol Hcl 50 Mg Tablet) 50 - 100 mg PO Q4H PRN PRN Reason: Moderate-Severe pain & Pre PT Stop: 03/05/22 17:08 Last Admin: 02/05/22 20:09 Dose: 100 mg Zolpidem Tartrate (Zolpidem Tartrate 10 Mg Tab) 10 mg PO HS PRN PRN Reason: Sleep Stop: 03/05/22 17:08 Last Admin: 02/07/22 00:11 Dose: 10 mg
[2022-02-07] MEDS ORDERED: FUROSEMIDE INJ 20 MG/2 ML VIAL IV ONE (10:07)
[2022-02-07] MEDS ORDERED: POTASSIUM CHLORIDE CRTAB 20 MEQ TABCR PO ONE (10:09)
--- NOTE | 2022-02-07 10:17 | Orthopedic Progress Note ---
Date of Service February 07, 2022 Assessment & Plan (1) Neurogenic claudication due to lumbar spinal stenosis: Plan: Maintain drain, PT as tolerated Hopefully DC for Thursday with Thomas Admission and Anticipated Discharge Date Admission Date: February 03, 2022 Subjective Back pain controlled he feels his leg symptoms are improving Physical Exam Physical Exam: Patient is seen by the bedside. Drain is functioning. Is good strength testing. Results & Data ([facility]) Vital Signs (Past 12 Hours) Vital Signs Temp Pulse Pulse Resp BP Pulse Ox O2 Del Method 02/07/22 07:53 37.4 C 75 20 108/69 91 Room Air 02/07/22 07:00 67 02/07/22 02:41 79 02/06/22 22:40 37 C 78 18 102/61 92 Room Air
[2022-02-07] MEDS: ACETAMINOPHEN 500 MG TAB PO PRN (14:44)
[2022-02-07] MEDS: HEPARIN SODIUM/DEXTROSE 25,000 UNITS/500 ML BAG IV SCH (14:51)
[2022-02-07 15:07] LABS: Partial Thromboplastin Ratio 1.5; Partial Thromboplastin Time 40.9 Seconds (21.0-31.0)
--- NOTE | 2022-02-07 16:50 | Hospitalist Progress Note ---
Date of Service February 07, 2022 Assessment & Plan (1) Neurogenic claudication due to lumbar spinal stenosis: (2) S/P lumbar spinal fusion: Plan: S/P lumbar decompression bilateral and posterior spinal fusion L4-L5 L5-S1.... performed by Dr. Gomes Continue pain control PT/OT eval Continue incentive spirometry Continue monitor hgb - (3) DVT (deep venous thrombosis): Plan: Doppler of LE showed nearly occlusive thrombus in the L common femoral vein with possible minimal extension to the popliteal vein. 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 Casarez- appreciate - reports that patient is well- known to his service and that he has previously reacted to different IV medications including IVIG with such a response as this before. He reports that if IV Decadron is necessary post procedurally then patient would likely be able to tolerate this at a lower dose. Hospitalist team discussed with Dr. Gomes and medication has been discontinued as this is a postoperative nausea/pain control support agent more so than a required medication for this patient. (8) Non-Hodgkin lymphoma: Plan: - Follows with heme/onc as outpatient - Continue Imbruvica Elevated troponin Echo revealed mild concentric LVH. No regional wall motion abnormalities noted. LV systolic function is normal. LV EF 65 to 70%. Grade 1 diastolic dysfunction. No significant valvular pathology. denies any chest pain Continue metoprolol Cardiology on board On 02/06 in AM , Afib noted on telemetry and patient was started on metoprolol by cardiology Acute blood loss anemia post op vs dilutional Pre-op Hgb 15.8 -->12.1 today (however stable from yesterday) Continue monitor H/H while on IV heparin drip DVT ppx on IV heparin CODE: Full code Thank you for involving us in the care of Mr. Castillo. Please do not hesitate to call with questions or concerns. At this time medicine service will follow along. Admission and Anticipated Discharge Date Admission Date: February 03, 2022 Subjective Pt was seen and examined for postop follow up and DVT Lying in bed with no acute distress Pt said that he feels ok he said that his lower extremities continue to be swollen HONG continues to drain Denies any chest pain, palpitation, dizziness and SOB Review of Systems Review of Systems: All systems reviewed & are unremarkable except as noted in Subjective Physical Exam Physical Exam: General- No acute distress Head- atraumatic Eyes- PERRL, EOMI, ENT- oropharynx clear Neck- supple, no JVD Lungs- clear to auscultation Heart- regular rhythm; no murmur Abdomen- normal bowel sounds, soft, nontender Extremities- no calf tenderness, +edema Neuro- alert, oriented x 3; PERRL, EOMI; no facial palsy; no dysarthria Skin- warm & dry Results & Data Results & Data ([facility]) Vital Signs (Past 12 Hours) Vital Signs Temp Pulse Pulse Resp BP BP Pulse Ox 02/07/22 16:02 74 02/07/22 14:39 37.7 C H 75 20 123/70 94 02/07/22 11:56 37.0 C 87 18 103/60 92 02/07/22 11:08 02/07/22 07:53 37.4 C 75 20 108/69 91 02/07/22 07:00 67 O2 Del Method 02/07/22 16:02 02/07/22 14:39 Room Air 02/07/22 11:56 Room Air 02/07/22 11:08 Room Air 02/07/22 07:53 Room Air 02/07/22 07:00
[2022-02-07] MEDS: DOCUSATE SODIUM/SENNA 50/8.6MG TAB PO SCH (21:42)
[2022-02-07] MEDS: FAMOTIDINE 20 MG TAB PO SCH (21:44)
[2022-02-07 21:47] LABS: Partial Thromboplastin Ratio 1.5
[2022-02-08 05:08] LABS: Hematocrit (blood only) 33.5 % (40.1-51.0); Hemoglobin 11.2 g/dl (14.0-18.0); Mean Corpuscular Hemoglobin 26.4 pg (25.0-34.0); Mean Corpuscular Hgb Conc 33.4 g/dL (32.0-36.0); Mean Platelet Volume 10.1 fL (9.4-12.4); Platelet Count 157 K/uL (130-400); RDW Coefficient of Variation 15.4 % (11.5-14.5); RDW Standard Deviation 44.1 fL (36.4-46.3); Red Blood Count 4.24 M/uL (4.63-6.08); White Blood Count 6.27 K/ul (4.8-10.8)
[2022-02-08 05:28] LABS: BUN Creatinine Ratio 11.8 (10-20); Calcium 8.4 mg/dl (8.5-10.1); Creatinine Clr Calc Pharmacy 53.5 ml/min; Est GFR (African American) 52.3 ml/min; Est GFR (Non-African American) 45.1 ml/min; Potassium 3.9 mmol/L (3.5-5.1)
[2022-02-08 05:37] LABS: Partial Thromboplastin Ratio 1.8
[2022-02-08 05:38] LABS: Partial Thromboplastin Time 48.4 Seconds (21.0-31.0)
[2022-02-08] MEDS: PANTOprazole 40 MG TAB PO SCH (07:51)
[2022-02-08] MEDS: CITALOPRAM 40 MG TAB PO SCH (07:51)
[2022-02-08] MEDS: METOPROLOL TARTRATE 25 MG TAB PO SCH ×2 (07:51→21:51)
[2022-02-08] MEDS: POLYETHYLENE (MIRALAX) 17 GM PACK PO SCH ×3 (08:50→21:51)
[2022-02-08] MEDS: HEPARIN SODIUM/DEXTROSE 25,000 UNITS/500 ML BAG IV SCH (09:31)
--- NOTE | 2022-02-08 10:33 | Orthopedic Progress Note ---
Date of Service February 08, 2022 Assessment & Plan (1) Neurogenic claudication due to lumbar spinal stenosis: Plan: Today we will change his dressing DC drain. Continue ambulation as tolerated. Possible discharge home tomorrow on Eliquis if cleared by medicine. Admission and Anticipated Discharge Date Admission Date: February 03, 2022 Subjective Patient resting comfortably Physical Exam Physical Exam: Drain is functioning and diminishing appropriately. Results & Data ([facility]) Vital Signs (Past 12 Hours) Vital Signs Temp Pulse Pulse Resp BP Pulse Ox O2 Del Method 02/08/22 07:15 79 02/08/22 01:13 37.0 C 81 20 106/64 93 Room Air 02/07/22 22:45 37.6 C H 76 18 126/76 98 Room Air
--- NOTE | 2022-02-08 15:25 | Cardiology Progress Note ---
Date of Service February 08, 2022 Assessment & Plan (1) S/P lumbar spinal fusion: (2) Abnormal EKG: (3) Paroxysmal atrial fibrillation with RVR: (4) Edema: (5) Chest pain: (6) Acute deep vein thrombosis (DVT): Plan Patient developed acute symptoms of chest pain, dizziness, shakiness, and pounding in his chest while receiving dexathemthasone injection in the post op setting. Symptoms lasted a few minutes and resolved. During this time, he was not on telemetry. EKG demonstrated NSR with mild lateral ST depression. -HS troponin trended upward at 553. Patient remained chest pain free. Echo revealed normal wall motion and normal LVEF. -due to spinal drain in place, no anticoagulation or antiplatelet therapy was recommended at that time. -Patient takes Eliquis as outpatient. This was not resumed due to recent spinal surgery. No recurrent atrial fibrillation overnight. Metoprolol tartrate 25 mg BID was initiated 02/07/2022. Unable to resume Eliquis at this time due to spinal drain. Due to worsening LE edema, and history of DVT in the past, venous duplex was completed and demonstrated left sided DVT. After discussion with spine surgeon Low dose IV heparin was initiated. Monitor for signs/symptoms of bleeding. Drain remains in place. No increase in production. Plan is to continue heparin until Thursday when it is felt safe to resume full anticoagulation with Eliquis pending evaluation by orthopedic surgery. Admission and Anticipated Discharge Date Admission Date: February 03, 2022 Subjective Patient seen examined the bedside. No recurrent atrial fibrillation overnight. Telemetry demonstrates sinus rhythm in the 70s. Lower extremity edema unchanged. Review of Systems Review of Systems: All systems reviewed & are unremarkable except as noted in Subjective Physical Exam Constitutional: well nourished; no acute distress Respiratory: normal respiratory effort; no respiratory distress, no labored breathing and no retractions Auscultation: no crackles, no rales and no rhonchi Cardiovascular: Rate/Rhythm: regular rate and regular rhythm Heart Sounds: normal S1; + abnormal S2 and no murmur Vessels: no JVD Extremities: + edema (2+ bilateral pedal edema.) Gastrointestinal (Abdomen): normal bowel sounds, soft, nontender, no hepatosplenomegaly Neurologic: CN's II-XI intact bilaterally and moves all extremities; no focal motor deficits Psychiatric: A+Ox3, euthymic affect Results & Data ([facility]) Vital Signs (Past 12 Hours) Vital Signs Temp Pulse Pulse Resp BP Pulse Ox O2 Del Method 02/08/22 15:17 70 02/08/22 11:26 37.2 C 66 16 80/49 L 91 Room Air 02/08/22 07:15 79
[2022-02-08] MEDS: oxyCODONE HCL IR 5 MG TAB (IMMEDIATE RELEASE) PO PRN (16:25)
--- NOTE | 2022-02-08 17:34 | Hospitalist Progress Note ---
Date of Service February 08, 2022 Assessment & Plan (1) Neurogenic claudication due to lumbar spinal stenosis: (2) S/P lumbar spinal fusion: Plan: S/P lumbar decompression bilateral and posterior spinal fusion L4-L5 L5-S1.... performed by Dr. Gomes Continue pain control PT/OT eval Continue incentive spirometry Continue monitor hgb - (3) DVT (deep venous thrombosis): Plan: Doppler of LE showed nearly occlusive thrombus in the L common femoral vein with possible minimal extension to the popliteal vein. 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 Casarez- appreciate - reports that patient is well- known to his service and that he has previously reacted to different IV medications including IVIG with such a response as this before. He reports that if IV Decadron is necessary post procedurally then patient would likely be able to tolerate this at a lower dose. Hospitalist team discussed with Dr. Gomes and medication has been discontinued as this is a postoperative nausea/pain control support agent more so than a required medication for this patient. (8) Non-Hodgkin lymphoma: Plan: - Follows with heme/onc as outpatient - Continue Imbruvica Elevated troponin Echo revealed mild concentric LVH. No regional wall motion abnormalities noted. LV systolic function is normal. LV EF 65 to 70%. Grade 1 diastolic dysfunction. No significant valvular pathology. denies any chest pain Continue metoprolol Cardiology on board On 02/06 in AM , Afib noted on telemetry and patient was started on metoprolol by cardiology Acute blood loss anemia post op vs dilutional Pre-op Hgb 15.8 -->12.1 today (however stable from yesterday) Continue monitor H/H while on IV heparin drip DVT ppx on IV heparin CODE: Full code Thank you for involving us in the care of Mr. Castillo. Please do not hesitate to call with questions or concerns. At this time medicine service will follow along. Admission and Anticipated Discharge Date Admission Date: February 03, 2022 Subjective Pt was seen and examined for postop follow up and DVT Lying in bed with no acute distress with family member at bedside Pt said that he feels ok. His very anxious to be discharged Denies any chest pain, palpitation, dizziness and SOB Review of Systems Review of Systems: All systems reviewed & are unremarkable except as noted in Subjective Physical Exam Physical Exam: General- No acute distress Head- atraumatic Eyes- PERRL, EOMI, ENT- oropharynx clear Neck- supple, no JVD Lungs- clear to auscultation Heart- regular rhythm; no murmur Abdomen- normal bowel sounds, soft, nontender Extremities- no calf tenderness, +edema Neuro- alert, oriented x 3; PERRL, EOMI; no facial palsy; no dysarthria Skin- warm & dry Results & Data Results & Data ([facility]) Vital Signs (Past 12 Hours) Vital Signs Temp Pulse Pulse Resp BP Pulse Ox O2 Del Method 02/08/22 15:55 37.5 C 74 16 116/68 93 Room Air 02/08/22 15:17 70 02/08/22 11:26 37.2 C 66 16 80/49 L 91 Room Air 02/08/22 07:15 79
[2022-02-08] MEDS: DOCUSATE SODIUM/SENNA 50/8.6MG TAB PO SCH (21:50)
[2022-02-08] MEDS: FAMOTIDINE 20 MG TAB PO SCH (21:51)
[2022-02-09] MEDS: HEPARIN SODIUM/DEXTROSE 25,000 UNITS/500 ML BAG IV SCH ×2 (03:08→11:05)
[2022-02-09] MEDS: oxyCODONE HCL IR 5 MG TAB (IMMEDIATE RELEASE) PO PRN (03:55)
[2022-02-09] MEDS: METOPROLOL TARTRATE 25 MG TAB PO SCH (07:21)
[2022-02-09] MEDS: CITALOPRAM 40 MG TAB PO SCH (07:21)
[2022-02-09] MEDS: PANTOprazole 40 MG TAB PO SCH (07:21)
[2022-02-09 07:44] LABS: Hematocrit (blood only) 34.4 % (40.1-51.0); Hemoglobin 11.3 g/dl (14.0-18.0); Mean Corpuscular Hemoglobin 26.5 pg (25.0-34.0); Mean Corpuscular Hgb Conc 32.8 g/dL (32.0-36.0); Mean Corpuscular Volume 80.6 fL (80.0-100.0); Mean Platelet Volume 9.8 fL (9.4-12.4); Platelet Count 154 K/uL (130-400); RDW Coefficient of Variation 15.3 % (11.5-14.5); Red Blood Count 4.27 M/uL (4.63-6.08); White Blood Count 5.61 K/ul (4.8-10.8)
[2022-02-09 08:08] LABS: BUN Creatinine Ratio 11.6 (10-20); Calcium 8.1 mg/dl (8.5-10.1); Creatinine Clr Calc Pharmacy 52.6 ml/min; Est GFR (African American) 51.1 ml/min; Est GFR (Non-African American) 44.1 ml/min; Potassium 3.9 mmol/L (3.5-5.1)
[2022-02-09 08:29] LABS: Partial Thromboplastin Ratio 1.7
[2022-02-09 09:01] LABS: Partial Thromboplastin Time 46.1 Seconds (21.0-31.0)
[2022-02-09] MEDS ORDERED: APIXABAN 5 MG TABLET PO SCH (10:00)
[2022-02-09] MEDS ORDERED: STOP HEPARIN DRIP ORDER ONE (10:00)
--- NOTE | 2022-02-09 10:21 | Hospitalist Progress Note ---
Date of Service February 09, 2022 Assessment & Plan (1) Neurogenic claudication due to lumbar spinal stenosis: (2) S/P lumbar spinal fusion: Plan: S/P lumbar decompression bilateral and posterior spinal fusion L4-L5 L5-S1.... performed by Dr. Gomes on 02/03/22 Continue pain control PT/OT eval Continue incentive spirometry Hgb stable at 11.3 Fall precaution (3) DVT (deep venous thrombosis): Plan: Doppler of LE showed nearly occlusive thrombus in the L common femoral vein with possible minimal extension to the popliteal vein. Eliquis was on hold due to the recent orthopedic surgery previous team discussed bleeding risk with patient while on anticoagulant Heparin drip was started per cardiology recommendation after discussion with surgeon Ok with orthopedic to transition to Eliquis case discussed with his oncology/hematology Dr. Willett about Eliquis dose on discharge Pt was on eliquis 5mg BID prior admission that was place on hold due to recent ortho procedure Dr. 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 Casarez- appreciate - reports that patient is well- known to his service and that he has previously reacted to different IV medications including IVIG with such a response as this before. He reports that if IV Decadron is necessary post procedurally then patient would likely be able to tolerate this at a lower dose. Hospitalist team discussed with Dr. Gomes and medication has been discontinued as this is a postoperative nausea/pain control support agent more so than a required medication for this patient. (8) Non-Hodgkin lymphoma: Plan: - Follows with heme/onc as outpatient - Case discussed with Oncology dr. Willett that recommended to resume Imbruvica on discharge Elevated troponin Echo revealed mild concentric LVH. No regional wall motion abnormalities noted. LV systolic function is normal. LV EF 65 to 70%. Grade 1 diastolic dysfunction. No significant valvular pathology. denies any chest pain Continue metoprolol Cardiology on board On 02/06 in AM , Afib noted on telemetry and patient was started on metoprolol by cardiology Acute blood loss anemia post op vs dilutional Hgb stable at 11.3 Continue monitor outpatient Edema Due to DVT Case discussed with cardiology that recommended lasix 20mg daily for 4 to 5 days Will advise pt about compression stocking DVT ppx on IV heparin discontinued today/ then transition to Eliquis CODE: Full code Thank you for involving us in the care of Mr. Castillo. Please do not hesitate to call with questions or concerns. Admission and Anticipated Discharge Date Admission Date: February 03, 2022 Subjective Pt was seen and examined for postop follow up and DVT Lying in bed with no acute distress He is very anxious to be discharged today I spoke to his Oncology/hematology about the dose of eliquis on discharge Discussed with orthopedic and cardiology about if it is safe to transition to Eliquis Denies any chest pain, palpitation, dizziness and SOB Review of Systems Review of Systems: All systems reviewed & are unremarkable except as noted in Subjective Physical Exam Physical Exam: General- No acute distress Head- atraumatic Eyes- PERRL, EOMI, ENT- oropharynx clear Neck- supple, no JVD Lungs- clear to auscultation Heart- regular rhythm; no murmur Abdomen- normal bowel sounds, soft, nontender Extremities- no calf tenderness, +edema Neuro- alert, oriented x 3; PERRL, EOMI; no facial palsy; no dysarthria Skin- warm & dry Results & Data Results & Data ([facility]) Vital Signs (Past 12 Hours) Vital Signs Temp Pulse Pulse Resp BP Pulse Ox O2 Del Method 02/09/22 07:39 36.7 C 67 18 110/59 L 92 Room Air 02/09/22 07:14 68
[2022-02-09] MEDS: POLYETHYLENE (MIRALAX) 17 GM PACK PO SCH (10:55)
--- NOTE | 2022-02-09 11:51 | Discharge Summary ---
Date of Service February 09, 2022 Admission HPI Per Admitting Provider 69-year-old male presents with chronic persistent back and leg pain. Failed extensive course of nonoperative care is here for surgical invention. Principal Diagnosis Lumbar spinal stenosis with neurogenic claudication Discharge Data Allergies Allergy/AdvReac Type Severity Reaction Status Date / Time prednisone AdvReac Intermediate GI upset Verified 02/03/22 11:06 Penicillins AdvReac Unknown Passed out Verified 02/03/22 11:06 procaine AdvReac Unknown Passed out Verified 02/03/22 11:06 Consultations 02/03/22 17:09 Consult Hospitalist Routine 02/04/22 13:14 Consult Cardiology Routine Procedures Performed Operation Date: 02/03/22 11:55 Actual Procedures p L4-S1 Decompression Fusion, Spinal Cord Monitoring(Not Applicable) - Prince Gomes DO Ordered Studies 02/03/22 FL lumbar spine 2-3V Routine 02/06/22 10:55 US venous duplex leg [US venous doppler LE BI] Stat Hospital Course (1) Neurogenic claudication due to lumbar spinal stenosis: Patient with lumbar decompression fusion tolerated this well was taken to orthopedic for postoperative. Postoperative course was steady but was complicated by a course of chest pain and subsequent diagnosis of DVT. He was managed properly with this. He continued to progress with physical therapy and ultimately discharged home. Discharge instructions found the chart for further review. Total Time Total Time Spent Total Time Spent (In Minutes): 20 minutes Discharge Plan Discharge Items Patient Disposition: Home - Self-Care Reason For Visit: Spinal Stenosis, LUmbar Region with Neurogenic Discharge Diagnosis: Lumbar spinal stenosis with neurogenic claudication and spondylolisthesis Activity: As commented below Non-emergency contact: Primary Care Provider Call non-emergency contact if: you have any medication questions Follow-up/Referrals: Allan Kaur M.D. [Primary Care Provider] - Diet: Regular Addtl Attending Provider Instructions: ACTIVITY RECOMMENDATIONS: SELF CARE INSTRUCTIONS AFTER THORACIC/LUMBAR FUSIONS 1. You may walk to your tolerance. It is good exercise for your legs and back. Expect some back and intermittent leg aches and pains. 2. You may perform "counter-top" level activities (make a sandwich, ross with a project, etc.). 3. No bending or lifting of more than 10 pounds or back twisting of any nature (roll like a log when turning in bed). 4. You may ride in a car for 20-30 minutes at a time. No driving until after your first visit with your doctor. 5. Frequent changes of position and restricting sitting to 30 minutes at a time will help limit the amount of back spasms and stiffness you may experience. 6. You may discontinue the use of ambulatory aids (cane, crutches, etc.) once your strength and confidence allow. 7. You may engineer process the shower and let water strike your incision when you arrive home at least once daily. Do not take a tub bath, sit in a hot tub or go into a swimming pool until after your first recheck in the office. SPECIAL CARE INSTRUCTIONS: VERY IMPORTANT TO READ AND REVIEW A. Your surgical incision has been closed with a cosmetic suture under the skin that will dissolve in about 6 weeks. In 14 days, you can use a pair of clean scissors and cut the suture that is left outside of the skin at the ends of your incision. 1. The small skin tapes can be removed 7 days after surgery if they have not fallen off by that point. 2. You may keep the wound open to air as much as possible to promote healing after post-op day number 5 unless told otherwise by your doctor. 3. If you think the wound looks like it is becoming infected (redness or worsening drainage) and/or you are experiencing fever, chill or worsening back pain and muscle spasms, contact the office so that we may evaluate you as soon as possible. B. Complications are uncommon, but please contact us if you have any signs or symptoms of: 1. wound infection (fever higher than 102.5 degrees F, redness, separation of wound, drainage, or increasing pain from the incision) 2. blood clots in legs (pain, swelling, redness and warmth in legs) 3. urinary tract infection (fever higher than 102.5 degrees F, burning upon urination or increased frequency of urination) 4. nerve problems (inability to walk on your toes or heels, numbness, loss of bowel or bladder control) 5. any other symptoms that concern you C. Please call the office at if you have any concerns or questions about your operation or recovery. D. No smoking! Smoking drastically decreases the chance of a solid fusion. E. Do not take any anti-inflammatory medications (Indocin, Advil, Motrin, Aspirin, Naprosyn, etc.) as these may inhibit the chance of a solid fusion. Tylenol is okay to take for pain. MANAGING PAIN AFTER SPINAL SURGERY 1. Narcotic medication is intended for short-term use and will be provided for surgical pain. Surgical pain usually lasts for a period of 4-6 weeks. Narcotic medication includes Percocet, Vicodin, Darvocet, Tylenol #3 or Lortab. 2. Longer-term pain is more appropriately treated with non-narcotic medication such as Tylenol ES. 3. Muscle spasm is not appropriately treated with narcotics. Muscle relaxers such as Soma, Flexeril or Skelaxin can be used along with Tylenol ES. 4. Remember that we all live with some "aches and pains". This is not unusual or uncommon after an injury or as we get older. a. Back pain is expected and may include muscle spasms for 4 to 6 weeks after surgery. The pain should gradually improve. If the pain worsens for no apparent reason, please contact the office. b. Intermittent leg pain may also be experienced and should not be concerned about unless it worsens for no apparent reason. If so, please contact the office. 5. We will provide appropriate medication within the normal guidelines of their prescribed use. We will also be very cautious and aware of potential abuse and extended duration of patients' medication needs. a. Pain medications are for your comfort and to assist with sleep and rest so that the tissue can heal. They are not provided in order to return to normal activity and should not be used through the day. To do so or worsening pain at night can result from ongoing tissue damage and development of tolerance to the prescribed medicine. 6. Please allow 2-3 days to process refills. Prescriptions will not be mailed but must be picked up at the office. FOLLOW UP VISIT: Keep your scheduled follow-up appointment. Any questions, please call the office at . Addtl Long Term Care Administrator Provider Instructions: Follow up with your primary care provider within 1 week ( please call to schedule for the appointment) Follow up with your Oncology/hematology Follow up with cardiology outpatient Continue lasix 20mg daily for about 4 days to help with the lower extremity edema You can use compression stocking for the swelling and keep your legs elevated. Seek urgent medical attention if you develop any abnormal bleeding or shortness of breath Pending Studies at Discharge: No Stand-Alone Forms: [facility], Smoking Cessation Medications and DC Order Prescriptions: New oxycodone 5 mg tablet 5 mg PO Q6H PRN (Reason: pain, severe) Qty: 30 0RF tramadol 50 mg tablet 50 mg PO Q6H PRN (Reason: pain, moderate) Qty: 30 0RF metoprolol tartrate 25 mg Tablet 25 mg PO BID Qty: 60 0RF furosemide [Lasix] 20 mg tablet 20 mg PO QAM Qty: 4 0RF Continued ondansetron HCl 8 mg tablet 8 mg PO TID PRN (Reason: nausea and vomiting) Qty: 30 1RF Rx Instructions: Takes whenever he is on Prednisone citalopram [Celexa] 40 mg tablet 40 mg PO QAM Eliquis 5 mg tablet 5 mg PO BID triamcinolone acetonide 0.1 % ointment 1 applic topical BID PRN (Reason: Skin Irritation) (DME) comp.stocking,thigh,long,large misc See Rx Instructions .ROUTE .MEDSUPPLY Qty: 2 0RF Rx Instructions: As directed zolpidem [Ambien] 10 mg Tablet 10 mg PO HS PRN (Reason: Sleep) Label Comments: pt takes this every night. pantoprazole [Protonix] 40 mg Tablet,Delayed Release (Dr/Ec) 40 mg PO QAM Imbruvica 280 mg Tablet 280 mg PO HS azithromycin 250 mg tablet 250 mg PO UD Rx Instructions: TAKE 1 TABLET BY MOUTH ONCE A DAY ON MONDAYS, WEDNESDAYS AND FRIDAYS. famotidine 20 mg Tablet 20 mg PO HS Discharge Orders: Discharge Order (Routine); Ordered 02/09/22 Ordered By: Prince Gomes Admission Data Admit Date/Time: 02/03/22 15:45 Attending Provider: Prince Gomes Admit Provider: Prince Gomes Primary Care Provider: Allan Kaur Other Providers: Garret Malin ; Laura Whalen ; Jero Cuellar ; Piter Booth
[2022-02-09] MEDS ORDERED: oxyCODONE IR HOME PACK PO ONE (14:42)
[2022-02-09] MEDS ORDERED: METOPROLOL TARTRATE 25 MG TAB PO ONE (14:45)
[2022-02-09] MEDS ORDERED: METOPROLOL TARTRATE 25 MG TAB PO SCH ×2 (21:00)
--- NOTE | 2022-02-19 08:03 | Coding Query ---
BMI To promote full compliance with coding requirements relating to patient care, physician participation is requested in all cases of plating technician uncertainty. Please assist us with the question(s) below: Please place an X within the parenthesis (x). If other, please document: BMI 33 was documented in this record for this patient. If the BMI is significant, please check the box that provides a more specific associated diagnosis: ( ) Overweight/Obese ( x) Obesity ( ) Morbid obesity ( ) Obesity Hypoventilation Syndrome (OHS) ( ) Heathy weight, not significant ( ) Underweight/Thin ( ) Other, please specify Thank you Shereen SOLANO
== END 2022-02-09 15:47 | disposition home or self-care (01) | DRG 454 ==
LOC: ASU 10:37 → 3W 15:45 → 2N 02-04 09:38

== ENCOUNTER 2022-11-21 08:15 | Inpatient (IN) ==
--- NOTE | 2022-11-04 14:00 | PAT Medication Instructions ---
Medication Instructions Date of Service November 04, 2022 Home Medications Medication Instructions Recorded ondansetron HCl 8 mg tablet 8 mg PO TID PRN nausea and 11/01/18 vomiting #30 tabs comp.stocking,thigh,long,large #2 ea 02/01/19 zolpidem 10 mg tablet (Ambien) 10 mg PO HS PRN Sleep pantoprazole 40 mg tablet,delayed release (Protonix) 40 mg PO QAM ondansetron HCl 8 mg tablet 8 mg PO TID PRN nausea and vomiting apixaban 5 mg tablet (Eliquis) 5 mg PO BID citalopram 40 mg tablet (Celexa) 40 mg PO QAM triamcinolone acetonide 0.1 % topical ointment 1 applic topical BID PRN Skin Irritation azithromycin 250 mg tablet 250 mg PO UD ibrutinib 280 mg tablet (Imbruvica) 280 mg PO HS metoprolol tartrate 25 mg tablet 12.5 mg PO QAM promethazine 25 mg tablet 25 mg PO DAILY PRN Nausea Continue as directed azithromycin 250 mg tablet 250 mg PO UD ASK your prescriber and surgeon apixaban 5 mg tablet (Eliquis) 5 mg PO BID ibrutinib 280 mg tablet (Imbruvica) 280 mg PO HS STOP taking 24 hours before surgery triamcinolone acetonide 0.1 % topical ointment 1 applic topical BID PRN Skin Irritation Take morning of surgery With a small sip of water, OTHERWISE NOTHING TO EAT OR DRINK AFTER MIDNIGHT: pantoprazole 40 mg tablet,delayed release (Protonix) 40 mg PO QAM ondansetron HCl 8 mg tablet 8 mg PO TID PRN nausea and vomiting (if needed) citalopram 40 mg tablet (Celexa) 40 mg PO QAM metoprolol tartrate 25 mg tablet 12.5 mg PO QAM promethazine 25 mg tablet 25 mg PO DAILY PRN Nausea Take evening before surgery zolpidem 10 mg tablet (Ambien) 10 mg PO HS PRN Sleep (if needed) ondansetron HCl 8 mg tablet 8 mg PO TID PRN nausea and vomiting (if needed) promethazine 25 mg tablet 25 mg PO DAILY PRN Nausea (if needed) Other Notes If you have any questions please call us at [phone] or [phone] or [phone] or [phone]
--- NOTE | 2022-11-05 14:09 | Anesthesiology Consultation ---
Date of Service November 05, 2022 Assessment & Plan (1) Encounter for pre-operative examination: Plan - awaiting [facility] cardiology preoperative appointment. - procaine allergy. -anesthesia complication: Pt states "slow to fall asleep" states was in OR once and surgeon was shocked he was still responding before surgery began. Denies awareness during surgery. - surgeon ordered medical clearance 11/10/22. - Case discussed in detail with Dr. Ross who advised patient will need cardiology pre-op evaluation prior to surgery. Surgeon's office made aware, message left for patient. - L4-S1 decompression fusion 02/03/22 Grade 1 view, Castillo 2, ETT 7.5. Post-op complications atrial fibrillation, LLE DVT and reaction to Decadron. - cardiology office visit 05/06/22 [facility]: "...admitted to [facility] in Jan 2022 for spinal fusion and developed afib RVR post op...patient was receiving dexamethasone injection and developed sudden-onset palpitations and chest discomfort. Evaluated by Dr. Cuellar and Dr. Stacy. EKG was obtained demonstrating mild lateral ST depression...underwent echocardiogram without regional wall motion abnormalities. Mildly elevated troponin also noted. Patient's symptoms resolved quickly without recurrence...developed atrial fibrillation with rapid ventricular response...was started on low-dose metoprolol and converted to normal sinus rhythm. He had a spinal drain in place and at this time Eliquis was not resumed. Several days later, patient developed worsening lower extremity edema was found to have recurrent DVT in the left leg. Spinal drain was removed and full dose Eliquis was resumed upon discharge...underwent 24 hour holter monitor at [facility] which was without recurrent atrial fib or flutter...Recommend trying metoprolol succinate 25 mg 1/2 tab daily and titrate as tolerated/needed for palpitations..." Follow-up 3 months, f/u appt not completed per [facility] EMR. Chart Review Chart Review: Pending: Refer to Additional Notes / Consult section and Patient seen in Pre Admission Testing Teaching & Discussion Pre-Anesthesia Teaching/Discussion Notes: Instructed NPO after midnight before surgery, except medications with 15 cc of water. Medication instructions provided according to the PAT guidelines. History Surgery Operation Date: 11/19/22 10:05 Proposed Procedures p L4-S1 Revision Decompression and Fusion, Spinal Cord Monitoring - Prince Gomes DO Height/Weight Height: 5 ft 10 in Weight: 110 kg Allergies Allergy/AdvReac Type Severity Reaction Status Date / Time dexamethasone [From Decadron] Allergy Unknown passed out Verified 11/04/22 12:18 Penicillins Allergy Unknown Passed out Verified 11/04/22 12:18 procaine Allergy Unknown Passed out Verified 11/04/22 12:18 prednisone AdvReac Intermediate GI upset Verified 11/04/22 12:17 ranitidine AdvReac Intermediate "stomach Uncoded 11/05/22 14:54 burning" Medications Home Medications Medication Instructions Recorded Confirmed Last Taken zolpidem 10 mg tablet (Ambien) 10 mg PO HS 04/20/18 11/04/22 02/02/22 22:00 pantoprazole 40 mg tablet,delayed 40 mg PO QAM 06/23/18 11/04/22 01/31/22 22:00 release (Protonix) ondansetron HCl 8 mg tablet 8 mg PO TID PRN nausea and 11/01/18 11/04/22 12/30/21 vomiting #30 tabs comp.stocking,thigh,long,large #2 ea 02/01/19 12/19/20 Unknown apixaban 5 mg tablet (Eliquis) 5 mg PO BID 03/07/19 11/04/22 01/30/22 citalopram 40 mg tablet (Celexa) 40 mg PO QAM 03/07/19 11/04/22 02/02/22 22:00 triamcinolone acetonide 0.1 % 1 applic topical BID PRN Skin 12/19/20 11/04/22 12/23/21 topical ointment Irritation azithromycin 250 mg tablet 250 mg PO UD 01/06/22 11/04/22 02/02/22 22:00 ibrutinib 280 mg tablet (Imbruvica) 280 mg PO HS 01/06/22 11/04/22 01/30/22 22:00 metoprolol tartrate 25 mg tablet 12.5 mg PO QAM 11/04/22 11/04/22 Unknown promethazine 25 mg tablet 25 mg PO DAILY PRN Nausea 11/04/22 11/04/22 Unknown Past Medical History Medical History (Updated 11/06/22 @ 14:46 by Sil M. Onink, PA-C) Anxiety Atrial fibrillation Managed by PCP, on Atrial flutter Chronic sinusitis s/p sinus endoscopy with ballooning/packing CKD (chronic kidney disease) stage 3, GFR 30-59 ml/min COPD (chronic obstructive pulmonary disease) controlled, stable per pt; last rescue inhaler use approx several months ago GERD (gastroesophageal reflux disease) controlled, stable per pt History of DVT (deep vein thrombosis) LLE (2018)- felt 2/2 hypercoagulopathy from IVIG therapy and (2022)-post-op. 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 Has been on IVIG since. 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 TIA (transient ischemic attack) 2019 Vertigo controlled Vocal cord paresis pt's denies Waldenstrom macroglobulinemia Follows with [facility] oncology, chemo completed 12/2017, stable per 10/20/22 [facility] heme/onc note Patient denies h/o seizures, heart attack, heart failure, DM, or blood tra nsfusions. Exercise / Class Metabolic Activity II 4-5 Yardwork/Stairs/Walk up hill (mild SOB with 1 FOS, ongoing x months since back pain last year and reduced physical activity; denies change or worsening; denies chest discomfort) Past Family History Family History Sister Breast cancer Mother Breast cancer Father Liver cancer Unknown FHx: deafness or hearing loss Sinusitis Denies family history of Myocardial infarction Stroke Past Surgical History Surgical History History of anesthesia problem "hard to get under anesthesia" states surgeon was once surprised he was still responding before surgery began; denies awareness during surgery History of appendectomy History of bronchoscopy History of cardiac radiofrequency ablation ~10 years ago History of cholecystectomy History of colonoscopy History of lumbar surgery 01/2022, decompression and fusion History of open reduction and internal fixation (ORIF) procedure RLE History of vascular access device Subsequent removal Hx of sinus surgery ESS (08/12/19): LMA#5, atraumatic at [facility]. No issues noted per post-op anesthesia progress note. Past Anesthesia History No Family Hx of Anesthesia Complications and Other (see above) History of PONV No Hx of PONV and Hx of Motion Sickness Social History Smoking Status: Former smoker tobacco type: cigarettes Do You Dip or Chew Tobacco: No Smoking End Date: 30 years ago Hx Alcohol Use: Yes Alcohol type: beer alcohol intake frequency: holidays/special occasions only Hx Substance Use: No substance use type: does not use Review of Systems Snoring, denies witnessed apneas. Chronic cough with postnasal drip. Denies change or worsening. Patient denies chest pain, fever, chills, wheezing, or palpitations. Physical Exam Vital Signs Vitals BP 117/76 P 66 TEMP 98.1 SP02 95% on RA RESP 17 Physical Patient resting comfortably in chair in no acute distress, alert and oriented, responding appropriately throughout visit Full cervical extension range of motion without pain TMD 3.5 finger breadths Mallampati Score 2 Dentition: removable front upper side partial and permanent lower partial, denies chipped or loose teeth, caps/crowns, implants or bridges Lungs: normal respiratory effort. Good air movement, clear throughout to auscultation, no adventitious breath sounds Cardiac: regular rate and rhythm, no murmurs noted Carotid arteries: negative bruit bilat Lab Results Anesthesia Preop Results Results Anesthesia Widget: WBC 5.53 K/ul (4.8-10.8) 11/05/22 Hgb 13.0 g/dl (14.0-18.0) L 11/05/22 Hct 42.8 % (42.0-52.0) 11/05/22 Plt 139 K/uL (130-400) 11/05/22 Na 141 mmol/L (136-145) 11/05/22 K 3.8 mmol/L (3.5-5.1) 11/05/22 Cl 108 mmol/L (98-107) H 11/05/22 CO2 28 mmol/L (21-32) 11/05/22 BUN 13 mg/dl (6-23) 11/05/22 Creat 1.34 mg/dl (0.6-1.4) 11/05/22 Glucose Level 94 mg/dl (70-99(Fasting)) 11/05/22 PT 10.4 Seconds (9.0-12.0) 11/05/22 PTT 30.5 Seconds (21.0-31.0) 11/05/22 INR 0.9 (0.9-1.1) 11/05/22 Urine Color Yellow 11/05/22 Urine Appearance Clear (Clear) 11/05/22 Urine pH 5.5 (4.5-7.5) 11/05/22 Urine Specific [place] 1.019 (1.000-1.030) 11/05/22 Urine Protein Negative (Negative) 11/05/22 Urine Glucose (UA) Negative (Negative) 11/05/22 Urine Ketones Negative (Negative) 11/05/22 Urine Blood Negative (Negative) 11/05/22 Urine Nitrite Negative (Negative) 11/05/22 Urine Bilirubin Negative (Negative) 11/05/22 Urine Urobilinogen Negative (Negative) 11/05/22 Urine Leukocyte Esterase Negative (Negative) 11/05/22 Blood Type A Positive 11/05/22 Antibody Screen NEGATIVE 11/05/22 Testing Electrocardiogram Date: 05/06/22 NSR, rate 64 bpm Cannot rule out anterior infarct (cited on or before 05/17/20) When compared with 05/17/20 EKG, Nonspecific T wave abnormality now evident in inferior leads T wave inversion now evident in lateral leads Chest X-Ray Date: 01/09/22 Emphysema without acute process Echocardiogram Date: 06/04/20 EF 65-70% No regional wall motion abnormalities Grade I diastolic dysfunction No significant valvular pathology Stress Test Date: 06/04/20 Pharmacologic MPHR 82% Negative for ischemia EF 65% Other Testing Venous doppler study 02/06/22 Nearly occlusive thrombus in the common femoral vein with possible minimal extension to the popliteal vein. There is slow flow in the poorly visualized peroneal vein, nonocclusive thrombus cannot be excluded. Of note, although the left femoral vein thrombus was seen on prior exam in 2020, this thrombus is favored to be of more recent origin. PET scan 05/02/21 1. Interval decrease in size and metabolic activity of conglomerate lymphadenopathy in the cervical, axillary, external iliac, and inguinal regions bilaterally. 2. New small pulmonary consolidations with low-level metabolic activity in the left upper lobe and bilateral lower lobes, likely sequela of pneumonia. 3. New small left pleural effusion. Carotid doppler 07/25/2019 1. There is no sonographic evidence of hemodynamically significant stenosis in the right or left carotid arterial system. 2. Antegrade flow is shown in the vertebral arteries.
[~2022-11-21 08:15] MED LIST changes: +300mg Preop IV SCH; +600mg Preop IV SCH; +CLINDAMYCIN/D5W 900 MG/50 ML BAG IV SCH; +LR 60ML/HR IV SCH; -ceFAZolin 2000MG 2,000 MG/15 ML SYR IV SCH
[2022-11-21] MEDS ORDERED: ONDANSETRON INJ 2 MG/ML 2 ML VIAL ONE (08:41)
[2022-11-21] MEDS ORDERED: LIDOCAINE 2% 2 ML VIAL/AMP(20MG/ML) INFIL ONE (08:41)
[2022-11-21] MEDS ORDERED: PROPOFOL IV EMULSION 10 MG/ML 20 ML VIAL IV ONE (08:41)
[2022-11-21] MEDS ORDERED: MIDAZOLAM HCL 1 MG/ML 2ML VIAL ONE (08:41)
[2022-11-21] MEDS ORDERED: ROCURONIUM BROMIDE 10 MG/ML 5 ML VIAL IV ONE (08:41)
[2022-11-21] MEDS ORDERED: SUGAMMADEX SODIUM 200 MG/2 ML VIAL IV ONE (08:42)
[2022-11-21] MEDS ORDERED: fentaNYL citrate PF 100 MCG/2 ML VIAL ONE ×2 (08:42→11:37)
--- NOTE | 2022-11-21 09:23 | History & Physical Bridge Note ---
Date of Service November 21, 2022 History & Physical Bridge Note I have examined the patient, reviewed the History & Physical and in the interval since the performance of the History & Physical I have noted the following changes of clinical significance: no changes noted
--- NOTE | 2022-11-21 09:24 | History & Physical Report ---
Date of Service November 21, 2022 Assessment & Plan (1) Neurogenic claudication due to lumbar spinal stenosis: Plan: L4-S1 revision decompression and fusion History of Present Illness Chief Complaint: Chronic back and leg pain Primary Care Provider: Allan Kaur M.D. This is a 72-year-old male well-known to me the presents with chronic back and leg pain after failing course of nonoperative care is here for surgical invention. Allergies Allergy/AdvReac Type Severity Reaction Status Date / Time dexamethasone [From Decadron] Allergy Unknown passed out Verified 11/21/22 09:08 Penicillins Allergy Unknown Passed out Verified 11/21/22 09:08 procaine Allergy Unknown Passed out Verified 11/21/22 09:08 prednisone AdvReac Intermediate GI upset Verified 11/21/22 09:08 ranitidine AdvReac Unknown "stomach Verified 11/21/22 09:08 burning" Home Medications Medication Instructions Recorded Confirmed Type zolpidem 10 mg tablet (Ambien) 10 mg PO HS 04/20/18 11/21/22 History pantoprazole 40 mg tablet,delayed 40 mg PO QAM 06/23/18 11/21/22 History release (Protonix) ondansetron HCl 8 mg tablet 8 mg PO TID PRN nausea and 11/01/18 11/21/22 Rx vomiting #30 tabs comp.stocking,thigh,long,large #2 ea 02/01/19 12/19/20 Rx apixaban 5 mg tablet (Eliquis) 5 mg PO BID 03/07/19 11/21/22 History citalopram 40 mg tablet (Celexa) 40 mg PO QAM 03/07/19 11/21/22 History triamcinolone acetonide 0.1 % 1 applic topical BID PRN Skin 12/19/20 11/21/22 History topical ointment Irritation azithromycin 250 mg tablet 250 mg PO UD 01/06/22 11/21/22 History ibrutinib 280 mg tablet (Imbruvica) 280 mg PO HS 01/06/22 11/21/22 History metoprolol tartrate 25 mg tablet 12.5 mg PO QAM 11/04/22 11/21/22 History promethazine 25 mg tablet 25 mg PO DAILY PRN Nausea 11/04/22 11/21/22 History Past Med/Surg History Medical History Anxiety Atrial fibrillation Managed by PCP, on Eliqu Atrial flutter Chronic sinusitis s/p sinus endoscopy with ballooning/packing CKD (chronic kidney disease) stage 3, GFR 30-59 ml/min COPD (chronic obstructive pulmonary disease) controlled, stable per pt; last rescue inhaler use approx several months ago GERD (gastroesophageal reflux disease) controlled, stable per pt History of DVT (deep vein thrombosis) LLE (2018)- felt 2/2 hypercoagulopathy from IVIG therapy and (2022)-post-op. 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 Has been on IVIG since. 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 TIA (transient ischemic attack) 2020 Vertigo controlled Vocal cord paresis pt's denies Waldenstrom macroglobulinemia Follows with [facility] oncology, chemo completed 12/2017, stable per 10/20/22 [facility] heme/onc note Surgical History History of anesthesia problem "hard to get under anesthesia" states surgeon was once surprised he was still responding before surgery began; denies awareness during surgery History of appendectomy History of bronchoscopy History of cardiac radiofrequency ablation ~10 years ago History of cholecystectomy History of colonoscopy History of lumbar surgery 01/2022, decompression and fusion History of open reduction and internal fixation (ORIF) procedure RLE History of vascular access device Subsequent removal Hx of sinus surgery ESS (08/12/19): LMA#5, atraumatic at [facility]. No issues noted per post-op anesthesia progress note. 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 Beliefs That Will Affect Care: None marital status: Current Living Situation: Spouse current occupational status: retired Other Information That Helps Us Care for You: No Feels Safe at Home: Yes Safety Concerns: Feels Safe At This Time Assistive Devices: Denture - Upper, Glasses, Hearing Aid - Bilateral and Other Assistive Devices Comment: partial dentures/flapper w/1 tooth Physical Exam Physical Exam: Patient is alert and oriented Heart regular rhythm Lungs clear Results & Data Results & Data Vital Signs (Past 12 Hours) Vital Signs Temp Pulse Resp BP Pulse Ox O2 Del Method 11/21/22 09:00 37 C 70 20 134/75 97 Room Air
[2022-11-21] MEDS ORDERED: CLINDAMYCIN 300 MG/D5W 50 ML BAG IV ONE (09:44)
[2022-11-21] MEDS ORDERED: BUPIVACAINE/EPINEPHRINE 0.25% 1:200,000 30 ML VIAL ONE (09:49)
[2022-11-21] MEDS ORDERED: ceFAZolin 330 MG/ML 1 GM VIAL ONE (09:49)
[2022-11-21] MEDS ORDERED: PROMETHAZINE HCL 12.5 MG in SODIUM CHLORIDE 0.9% 50 ML IV PRN ×2 (10:07→14:02)
[2022-11-21] MEDS ORDERED: fentaNYL citrate PF 100 MCG/2 ML VIAL IV PRN (10:07)
[2022-11-21] MEDS ORDERED: ONDANSETRON INJ 2 MG/ML 2 ML VIAL IV PRN (10:07)
[2022-11-21] MEDS ORDERED: ePHEDrine sulfate 50 MG/ML AMP IV PRN (10:07)
[2022-11-21] MEDS ORDERED: HYDROmorphone INJ 2 MG/ML SYR/VIAL IV PRN (10:07)
[2022-11-21] MEDS ORDERED: ATROPINE SULFATE 0.1 MG/ML 10ML SYR IV PRN (10:07)
[2022-11-21] MEDS ORDERED: FLOSEAL HEMOSTATIC MATRIX 10ML TOP ONE (10:42)
--- NOTE | 2022-11-21 12:05 | Operative Report ---
Post Operative Report Pre & Post Diagnosis Operation Date: 11/21/22 10:05 Pre-Op Diagnosis: Nonunion L5-S1 fusion with continued back and leg pain Post-Op Diagnosis: Same I identified the patient and participated in the time-out.: Yes Procedure Operation Date: 11/21/22 10:05 Actual Procedures #1 removal of posterior instrumentation L4-S1. #2 exploration of fusion L4-S1. #3 revision posterior spinal fusion L4-S1. #4 revision interbody fusion L5-S1. #5 placement of Spira 14 x 26 mm L5-S1. #6 revision decompression L5-S1. #7 placement locally harvested morselized autograft and posterior gutters. #8 placement infuse collagen sponge, master graft and posterior gutters and I factor and interbody space. Surgeon Prince Gomes, DO Sawdust Drier Herb Castle Estimated Blood Loss 350 Findings See Below The patient is 5 foot 10 weighing over 109 kg with a BMI in excess of 34. The patient's body was did contribute to significant technical difficulty with exposure and implant placement. This at least 50% increased operative time. Specimens None Indications This is a 72-year-old male who presents above-mentioned diagnosis after failed course of nonoperative care is here for surgical invention. Description of Procedure Patient was met with identified informed consent obtained. Patient was then taken to the operative suite underwent patient placed in a prone position on Bryon table top Jose F frame. All bony promises well-padded eyes inspected to ensure no external pressure placed upon the bed this point the lumbar spine was prepped and draped in a sterile fashion. Sharp dissection with assistance of Bovie cautery to form down to and exposing the remaining lamina and transverse processes and instrumentation of L4-S1. Then proceeded to move the hardware bilaterally explore the fusion mass the posterior gutters noticed immature bone only. Then performed a revision decompression of L5 complete facetectomy on the right to address all foraminal stenosis. Pedicle screws were then placed in the L for L5 and S1 levels bilaterally with assistance of fluoroscopy and by way the transforaminal approach on the right revision discectomy was performed endplates curetted to subcortical bleeding bone and a 14 x 26 mm Spira cage with I factor tapped in position. The rods were then compressed locked into final position bilaterally. The transverse processes of L4-5 and the sacral ala burred to subcortical pain bone. Infuse collagen sponge bone mass graft locally harvested morselized autograft was placed in the posterior gutters. 15 round HONG inserted. The incision was then closed with 1 Vicryl to fascia 2-0 Vicryl subcutaneously and 4 Monocryl for final skin closure. Steri-Strips sterile dressings placed. Patient awakened taken to PACU stable condition. Please note spinal cord monitoring was utilized at the procedure no changes noted. Lastly Herb Castle was present at the entire surgery and while the patient positioning complex portions of the surgery and final skin closure. I attest to the content of the Intraoperative Record and any orders documented therein. Any exceptions are noted below.
--- NOTE | 2022-11-21 13:10 | Fluoroscopy Report ---
FL lumbar spine 2-3V CLINICAL HISTORY: L4-S1 DECOMPRESSION AND FUSION COMPARISON STUDY: 02/03/2022 FLUOROSCOPY TIME: 8.2 seconds FLUOROSCOPY IMAGES: 2 EXPOSURE DOSE: 6.16 mGy FINDINGS: Posterior interbody jennie and screw fusion hardware with discectomy at L4-S1. The hardware ap pears intact. No unexpected opaque foreign bodies. Note that the images were submitted following comp letion of the surgery. IMPRESSION: Fluoroscopic assistance as above. ACT 112: Negative or not required by law. Electronically signed by: Balwinder Rob M.D. 11/21/2022 1:09 PM
--- NOTE | 2022-11-21 13:46 | Anesthesiology Progress Note ---
Date of Service November 21, 2022 Anesthesia Post Procedure Vital Signs Vital Signs: Temp Pulse Pulse Resp BP Pulse Ox O2 Del Method 11/21/22 13:25 36.8 C 64 14 104/61 98 Nasal Cannula 11/21/22 13:15 65 12 116/61 96 Nasal Cannula 11/21/22 13:05 64 12 111/60 95 Nasal Cannula 11/21/22 12:55 66 16 110/67 94 Nasal Cannula 11/21/22 12:45 66 12 130/58 L 99 Oxymask 11/21/22 12:35 64 14 113/70 99 Oxymask 11/21/22 12:24 36.9 C 63 16 97/62 L 97 Oxymask 11/21/22 09:00 37 C 70 20 134/75 97 Room Air O2 Flow Rate 11/21/22 13:25 2 11/21/22 13:15 2 11/21/22 13:05 2 11/21/22 12:55 2 11/21/22 12:45 4 11/21/22 12:35 8 11/21/22 12:24 8 11/21/22 09:00 Pain Intensity Back: Pain Intensity: 5 Transfer of Care Handoff Completed per policy Notes Mental Status: alert / awake / arousable and participated in evaluation Patient Amnestic to Procedure: Yes Nausea / Vomiting: adequately controlled Pain: adequately controlled Airway Patency, RR, SpO2: stable & adequate BP & HR: stable & adequate Hydration State: stable & adequate Anesthetic Complications: no major complications apparent
[2022-11-21] MEDS ORDERED: NALOXONE HCL 0.4 MG/1 ML VIAL/CARP IV PRN (14:02)
[2022-11-21] MEDS ORDERED: FAMOTIDINE 20 MG TAB PO PRN (14:02)
[2022-11-21] MEDS ORDERED: hydrOXYzine HCl 25 MG TAB PO PRN (14:02)
[2022-11-21] MEDS ORDERED: ACETAMINOPHEN 1,000 MG/100 ML VIAL IV PRN (14:02)
[2022-11-21] MEDS ORDERED: ALUMINUM/MAGNESIUM SUSP 30 ML UDC PO PRN (14:02)
[2022-11-21] MEDS ORDERED: bisacodyL 10 MG SUPP PR PRN (14:02)
[2022-11-21] MEDS ORDERED: DO NOT ADMINISTER FLU VACCINE PRN (14:02)
[2022-11-21] MEDS ORDERED: DO NOT ADMINISTER PNEUMOCOCCAL VACCINE PRN (14:02)
[2022-11-21] MEDS ORDERED: HYDROmorphone INJ 0.5 MG/0.5 ML SYR IV PRN (14:02)
[2022-11-21] MEDS ORDERED: ACETAMINOPHEN 500 MG TAB PO PRN (14:02)
[2022-11-21] MEDS ORDERED: SOD PHOSPHATE/SOD BIPHOSPHATE ENEMA 132 ML BTL PR PRN (14:02)
[2022-11-21] MEDS ORDERED: METOCLOPRAMIDE HCL INJ 5 MG/ML 2 ML VIAL IV PRN (14:02)
[2022-11-21] MEDS ORDERED: oxyCODONE HCL IR 5 MG TAB (IMMEDIATE RELEASE) PO PRN (14:02)
[2022-11-21] MEDS ORDERED: LORazepam 2 MG/1 ML VIAL IV PRN (14:02)
[2022-11-21] MEDS ORDERED: LORazepam 0.5 MG TAB PO PRN (14:02)
[2022-11-21] MEDS ORDERED: HYDROmorphone INJ 1 MG/ML SYRINGE IV PRN (14:02)
[2022-11-21] MEDS ORDERED: diphenhydrAMINE Capsule 25 MG CAP PO PRN (14:02)
[2022-11-21] MEDS ORDERED: MAGNESIUM HYDROXIDE SUSP 30 ML UDC PO PRN (14:02)
[2022-11-21] MEDS ORDERED: ONDANSETRON 4 MG OD TAB PO PRN (14:02)
[2022-11-21] MEDS: LACTATED RINGER'S 1,000 ML IV SCH ×2 (14:49→19:20)
--- NOTE | 2022-11-21 15:09 | Consultation ---
Date of Consultation November 21, 2022 Assessment & Plan (1) S/P spinal surgery: (2) Neurogenic claudication due to lumbar spinal stenosis: Post op day# 0 S/P removal instrumentation, decompression, fusion L5-S1 by Dr Mireya KELLER# 350ml Pain management per ortho Wound management per ortho PT/OT as appropriate DVT prophylaxis per ortho Incentive spirometry Monitor H&H for acute blood loss anemia, pre-op Hgb: 13 Patient had Ancef ordered post-op. He reports facial swelling with PCN. Spoke to Dr Gomes who recommends Clindamycin in place of Acnef. (3) Paroxysmal atrial fibrillation: H/O Paroxysmal atrial fibrillation, paroxysmal atrial flutter s/p flutter ablation 2003, s/p PVI ablation 2013, history of recurrent PAF after spinal surgery 2021 Chronically anticoagulated on Eliquis Eliquis on hold secondary to spinal surgery Continue metoprolol succinate (4) History of DVT (deep vein thrombosis): History recurrent DVT chronically anticoagulated on Eliquis. Most recent DVT 01/28/2022 in which was off Eliquis for spinal surgery Eliquis on hold currently secondary to surgery. Resume as able per orthospine (5) CKD (chronic kidney disease) stage 3, GFR 30-59 ml/min: Pre-op Cr: 1.3 Monitor renal functions, avoid nephrotoxic agents possible (6) Waldenstrom macroglobulinemia: (7) Lymphoma: Continue Imbuvica Follows with hematology/oncology (8) GERD (gastroesophageal reflux disease): Continue PPI (9) Depression: Continue citalopram DVT Prophylaxis SCDs per ortho Disposition per primary service Follows with Dr Allan Kaur for routine care Pt was seen and care coordinated with Dr Skelton. See addendum Thank you for this consultation. We will follow the patient with you during their hospital stay. You can reach a member of [facility]09 via [facility] Supervising Physician Co-Signing Physician Notes I have seen and discussed the case with the collaborating KUNAL. I agree with the above H&P. I have reviewed and confirmed the patients medical history, the findings on physical examination, and the patients diagnosis and treatment plan with [facility] SYED and agree with the information documented. In short, Mr. Castillo is a 72 year old gentleman with history of Waldenstom's Macroglobinemia, PAF s/p ablation with recurrence, DVT and other medical issues who is now s/p fusion of L5-S1. Post-operatively patient is doing well. VS stable. Labs unremarkable. Rates controlled. Plan to resume AC per Dr Gomes, with emphasis of high risk given history of postoperative DVT. Resume home meds above as documented. Transition to clindamycin given history of ancef allergy--duration and further antibiotics per spine service. Ibrutinib will need to be brought in as not formulary.. Thank you for the interesting consult. History of Present Illness Requesting Physician: Dr. Gomes Reason for Consultation: Postop medical management Attending Physician: Prince Gomes, DO History of Present Illness Patient is 72-year-old male with PMH paroxysmal atrial fibrillation, paroxysmal atrial flutter s/p flutter ablation 2003, s/p PVI ablation 2013, history of recurrent PAF after spinal surgery 2021, history recurrent DVT chronically anticoagulated on Eliquis, most recent DVT 01/28/2022 in which was off Eliquis for spinal surgery, chronic edema, Waldenstrom's macroglobulinemia, lymphoma, GERD, depression, CKD III seen in medical consultation s/p removal instrumentation, decompression, fusion L5-S1. Post op patient reports feels tired and having low back discomfort. Has Barone catheter in place. States last BM was this morning. Has chronic BLE edema and reports is at baseline. Denies fever/chills, N/V/D, TERRAZAS, dizziness, CP, SOB, palpitations, cough, rhinorrhea, abdominal pain, paresthesias, weakness, rashes, urinary symptoms. Allergies Allergy/AdvReac Type Severity Reaction Status Date / Time dexamethasone [From Decadron] Allergy Unknown passed out Verified 11/21/22 09:08 Penicillins Allergy Unknown Swelling Verified 11/21/22 18:40 procaine Allergy Unknown Passed out Verified 11/21/22 09:08 prednisone AdvReac Intermediate GI upset Verified 11/21/22 09:08 ranitidine AdvReac Unknown "stomach Verified 11/21/22 09:08 burning" Home Medications Medication Instructions Recorded Confirmed Type zolpidem 10 mg tablet (Ambien) 10 mg PO HS 04/20/18 11/21/22 History pantoprazole 40 mg tablet,delayed 40 mg PO QAM 06/23/18 11/21/22 History release (Protonix) comp.stocking,thigh,long,large #2 ea 02/01/19 11/21/22 Rx apixaban 5 mg tablet (Eliquis) 5 mg PO BID 03/07/19 11/21/22 History citalopram 40 mg tablet (Celexa) 40 mg PO QAM 03/07/19 11/21/22 History triamcinolone acetonide 0.1 % 1 applic topical BID PRN Skin 12/19/20 11/21/22 History topical ointment Irritation azithromycin 250 mg tablet 250 mg PO UD 01/06/22 11/21/22 History ibrutinib 280 mg tablet (Imbruvica) 280 mg PO HS 01/06/22 11/21/22 History promethazine 25 mg tablet 25 mg PO DAILY PRN Nausea 11/04/22 11/21/22 History metoprolol succinate 25 mg 12.5 mg PO PM 11/21/22 11/21/22 History tablet,extended release 24 hr Patient History Medical History (Updated 11/21/22 @ 18:23 by Lena Logan PA-C) Anxiety Atrial fibrillation Managed by PCP, on Eliqu Atrial flutter Chronic sinusitis s/p sinus endoscopy with ballooning/packing CKD (chronic kidney disease) stage 3, GFR 30-59 ml/min COPD (chronic obstructive pulmonary disease) controlled, stable per pt; last rescue inhaler use approx several months ago GERD (gastroesophageal reflux disease) controlled, stable per pt History of DVT (deep vein thrombosis) LLE (2018)- felt 2/2 hypercoagulopathy from IVIG therapy and (2022)-post-op. 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 Has been on IVIG since. 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 TIA (transient ischemic attack) 2019 Vertigo controlled Vocal cord paresis pt's denies Waldenstrom macroglobulinemia Follows with [facility] oncology, chemo completed 12/2017, stable per 10/20/22 [facility] heme/onc note Surgical History (Updated 11/21/22 @ 18:19 by Lena Logan PA-C) History of anesthesia problem "hard to get under anesthesia" states surgeon was once surprised he was still responding before surgery began; denies awareness during surgery History of appendectomy History of bronchoscopy History of cardiac radiofrequency ablation ~10 years ago History of cholecystectomy History of colonoscopy History of lumbar surgery 01/2022, decompression and fusion History of open reduction and internal fixation (ORIF) procedure RLE History of vascular access device Subsequent removal Hx of sinus surgery ESS (08/12/19): LMA#5, atraumatic at [facility]. No issues noted per post-op anesthesia progress note. Family History Sister Breast cancer Mother Breast cancer Father Liver cancer Unknown FHx: deafness or hearing loss Sinusitis Denies family history of Myocardial infarction Stroke Social History Smoking Status: Former smoker Smoking End Date: 30 years ago; Second Hand Exposure: Yes (hx in the workplace); Do You Dip or Chew Tobacco: No; Tobacco Cessation Education Requested by Patient: No Hx Alcohol Use: Yes Alcohol type: beer Hx Substance Use: No Preferred Language: Yoruba Communication Ability: Effective Refuse Driver Required: No Beliefs That Will Affect Care: None marital status: Current Living Situation: Spouse current occupational status: retired Other Information That Helps Us Care for You: No Feels Safe at Home: Yes Safety Concerns: Feels Safe At This Time Assistive Devices: Denture - Upper, Glasses, Hearing Aid - Bilateral and Other Assistive Devices Comment: partial dentures/flapper w/1 tooth Review of Systems Review of Systems: All systems reviewed & are unremarkable except as noted in HPI & below Physical Exam Physical Exam: General: no distress, overweight Head: normocephalic, atraumatic Eyes: conjunctiva non-injected, anicteric ENT: normal inspection external ears, nose, mucous membranes moist Neck: supple, trachea midline Lungs: clear, no respiratory distress, no wheezing/rhonchi/rales CV: RRR, no murmur Abd: normal BS, soft, non-tender Back: surgical dressing in place, +HONG drain with serosanguineous drainage Ext: no cyanosis, no calf tenderness; BLE with edema, bilateral pedal pushes and pulls intact, sensation to light touch intact Neuro: A&O x 3, no focal deficits noted, normal affect Skin: warm, dry Results & Data Vital Signs (Past 12 Hours) Vital Signs Temp Pulse Pulse Resp BP Pulse Ox O2 Del Method 11/21/22 14:49 64 103/63 94 Nasal Cannula 11/21/22 14:26 36.8 C 62 18 97/56 L 97 Room Air 11/21/22 13:50 36.7 C 66 16 99/58 L 95 Room Air 11/21/22 13:25 36.8 C 64 14 104/61 98 Nasal Cannula 11/21/22 13:15 65 12 116/61 96 Nasal Cannula 11/21/22 13:05 64 12 111/60 95 Nasal Cannula 11/21/22 12:55 66 16 110/67 94 Nasal Cannula 11/21/22 12:45 66 12 130/58 L 99 Oxymask 11/21/22 12:35 64 14 113/70 99 Oxymask 11/21/22 12:24 36.9 C 63 16 97/62 L 97 Oxymask 11/21/22 09:00 37 C 70 20 134/75 97 Room Air O2 Flow Rate 11/21/22 14:49 2 11/21/22 14:26 11/21/22 13:50 11/21/22 13:25 2 11/21/22 13:15 2 11/21/22 13:05 2 11/21/22 12:55 2 11/21/22 12:45 4 11/21/22 12:35 8 11/21/22 12:24 8 11/21/22 09:00 (7) Lymphoma Lymphoma site: unspecified region Lymphoma type: unspecified type Qualified Code(s): C85.90 - Non-Hodgkin lymphoma, unspecified, unspecified site
[2022-11-21] MEDS: METOPROLOL SUCC 25MG EXT REL TAB PO SCH (17:47)
[2022-11-21] MEDS: ceFAZolin 2000MG 2,000 MG/15 ML SYR IV SCH ×2 (17:48→17:58)
[2022-11-21] MEDS: CLINDAMYCIN/D5W 600 MG/50 ML BAG IV SCH (19:21)
[2022-11-21] MEDS: DOCUSATE SODIUM/SENNA 50/8.6MG TAB PO SCH (22:02)
[2022-11-21] MEDS: traMADol HCL 50 MG TABLET PO PRN (22:06)
[2022-11-21] MEDS: ZOLPIDEM TARTRATE 10 MG TAB PO SCH (22:06)
[2022-11-22] MEDS: CLINDAMYCIN/D5W 600 MG/50 ML BAG IV SCH (02:11)
[2022-11-22] MEDS: LACTATED RINGER'S 1,000 ML IV SCH (02:53)
[2022-11-22] MEDS: POLYETHYLENE (MIRALAX) 17 GM PACK PO SCH ×3 (05:30→17:41)
[2022-11-22 06:03] LABS: Basophils # (auto) 0.03 K/uL (0.00-0.20); Basophils % (auto) 0.5 %; Eosinophils % (auto) 1.6 %; Hematocrit (blood only) 35.1 % (42.0-52.0); Hemoglobin 10.8 g/dl (14.0-18.0); Immature Granulocytes # (auto) 0.01 K/uL (0.01-0.20); Immature Granulocytes % (auto) 0.2 %; Lymphocytes # (auto) 0.27 K/uL (1.20-3.40); Lymphocytes % (auto) 4.4 %; Mean Corpuscular Hemoglobin 22.3 pg (25.0-34.0); Mean Corpuscular Hgb Conc 30.8 g/dL (32.0-36.0); Mean Corpuscular Volume 72.5 fL (80.0-100.0); Mean Platelet Volume 10.1 fL (9.4-12.4); Monocytes % (auto) 8.1 %; Neutrophils # (auto) 5.29 K/uL (1.40-6.50); Neutrophils % (auto) 85.2 %; Platelet Count 145 K/uL (130-400); RDW Coefficient of Variation 18.7 % (11.5-14.5); RDW Standard Deviation 48.2 fL (36.4-46.3); Red Blood Count 4.84 M/uL (4.70-6.10)
[2022-11-22 06:21] LABS: BUN Creatinine Ratio 10.3 (10-20); Calcium 7.8 mg/dl (8.6-10.3); Creatinine Clr Calc Pharmacy 55.8 ml/min; Est GFR (African American) 54.5 ml/min; Potassium 4.1 mmol/L (3.5-5.1)
[2022-11-22] MEDS: CITALOPRAM 40 MG TAB PO SCH (08:13)
[2022-11-22] MEDS: PANTOprazole 40 MG TAB PO SCH (08:13)
[2022-11-22] MEDS ORDERED: METOPROLOL TARTRATE 25 MG TAB PO SCH (09:00)
--- NOTE | 2022-11-22 09:45 | Hospitalist Progress Note ---
Date of Service November 22, 2022 Assessment & Plan (1) S/P spinal surgery: (2) Neurogenic claudication due to lumbar spinal stenosis: Plan: Post op day# 1 S/P removal instrumentation, decompression, fusion L5-S1 by Dr Gomes Pain management per ortho Wound management per ortho PT/OT as appropriate DVT prophylaxis per ortho Incentive spirometry Monitor H&H for acute blood loss anemia, pre-op Hgb: 13 Patient had Ancef ordered post-op. He reports facial swelling with PCN. Spoke to Dr Gomes who recommends Clindamycin in place of Ancef. Acute blood loss anemia, post-op, likely component of dilution as well - Current Hgb 10.8, pre-op hgb ~13 - cont. to closely monitor - expected , no need for blood transfusion at this time (3) Paroxysmal atrial fibrillation: Plan: H/O Paroxysmal atrial fibrillation, paroxysmal atrial flutter s/p flutter ablation 2003, s/p PVI ablation 2013, history of recurrent PAF after spinal surgery 2021 Chronically anticoagulated on Eliquis Eliquis on hold secondary to spinal surgery Continue metoprolol succinate (4) History of DVT (deep vein thrombosis): Plan: History recurrent DVT chronically anticoagulated on Eliquis. Most recent DVT 01/28/2022 in which was off Eliquis for spinal surgery Eliquis on hold currently secondary to surgery. Resume as able per orthospine (5) CKD (chronic kidney disease) stage 3, GFR 30-59 ml/min: Plan: Pre-op Cr: 1.3 Monitor renal functions, avoid nephrotoxic agents possible (6) Waldenstrom macroglobulinemia: (7) Lymphoma: Plan: Continue Imbuvica Follows with hematology/oncology (8) GERD (gastroesophageal reflux disease): Plan: Continue PPI (9) Depression: Plan: Continue citalopram DVT Prophylaxis SCDs per ortho Disposition per primary service Follows with Dr Allan Kaur for routine care Thank you for this consultation. We will follow the patient with you during their hospital stay. You can reach a member of the [facility] Hospitalist Team 01/09 via [place] Admission and Anticipated Discharge Date Admission Date: November 21, 2022 Subjective Pt seen in follow up in med consult pt s/p lumbar spine surgery Currently laying in bed in NAD Back pain controlled Says he has been ambulating no fever, chills, chest pain, shortness of breath Voiding without difficulty. Passing flatus. Review of Systems Review of Systems: All systems reviewed & are unremarkable except as noted in Subjective Physical Exam Physical Exam: General: no distress, overweight Head: normocephalic, atraumatic Eyes: conjunctiva non-injected, anicteric ENT: normal inspection external ears, nose, mucous membranes moist Neck: supple Lungs: clear, no respiratory distress, no wheezing/rhonchi/rales CV: RRR, no murmur Abd: normal BS, soft, non-tender Back: surgical dressing in place, +HONG drain with serosanguineous drainage Ext: BLE with edema, bilateral pedal pushes and pulls intact, sensation to light touch intact Neuro: A&O x 3, no facial asymmetry, speech fluent, moves extremities Skin: warm, dry Results & Data Results & Data Vital Signs (Past 12 Hours) Vital Signs Temp Pulse Resp BP BP Pulse Ox O2 Del Method 11/22/22 07:26 37 C 72 16 105/62 95 Room Air 11/22/22 03:39 36.7 C 70 18 107/68 97 Nasal Cannula 11/22/22 01:23 64 92/57 L 96 Nasal Cannula 11/21/22 23:08 36.6 C 61 16 97/59 L 99 Nasal Cannula O2 Flow Rate 11/22/22 07:26 11/22/22 03:39 2 11/22/22 01:23 2 11/21/22 23:08 2 Laboratory Results 11/22/22 11/22/22 11/21/22 Range/Units 05:24 05:24 09:05 WBC 6.20 (4.8-10.8) K/ul RBC 4.84 (4.70-6.10) M/uL Hgb 10.8 L (14.0-18.0) g/dl Hct 35.1 L (42.0-52.0) % MCV 72.5 L (80.0-100.0) fL MCH 22.3 L (25.0-34.0) pg MCHC 30.8 L (32.0-36.0) g/dL RDW Std Deviation 48.2 H (36.4-46.3) fL RDW Coeff of Benedict 18.7 H (11.5-14.5) % Plt Count 145 (130-400) K/uL MPV 10.1 (9.4-12.4) fL Immature Gran % (Auto) 0.2 % Neut % (Auto) 85.2 % Lymph % (Auto) 4.4 % [place] % (Auto) 8.1 % Eos % (Auto) 1.6 % Baso % (Auto) 0.5 % Neut # (Auto) 5.29 (1.40-6.50) K/uL Lymph # (Auto) 0.27 L (1.20-3.40) K/uL [place] # (Auto) 0.50 (0.11-0.59) K/uL Eos # (Auto) 0.10 (0.00-0.50) K/uL Baso # (Auto) 0.03 (0.00-0.20) K/uL Immature Gran # (Auto) 0.01 (0.01-0.20) K/uL Sodium 138 (136-145) mmol/L Potassium 4.1 (3.5-5.1) mmol/L Chloride 108 H (98-107) mmol/L Carbon Dioxide 27 (21-32) mmol/L Anion Gap 3 (3-11) BUN 15 (6-23) mg/dl Creatinine 1.46 H (0.6-1.4) mg/dl Est Cr Clr Drug Dosing 55.8 ml/min Est GFR ( Amer) 54.5 ml/min Est GFR (Non-Af Amer) 47.0 ml/min BUN/Creatinine Ratio 10.3 (10-20) Glucose 95 (70-99(Fasting)) mg/dl Calcium 7.8 L (8.6-10.3) mg/dl Blood Type A Positive Antibody Screen NEGATIVE Medications Administered Current Inpatient Medications Acetaminophen (Acetaminophen 500 Mg Tab) 1,000 mg PO Q8H PRN PRN Reason: MILD Pain Scale 1,2,3 & Pre PT Stop: 12/21/22 14:01 Al Hydrox/Mg Hydrox/Simethicone (Aluminum/Magnesium Susp 30 Ml Udc) 30 ml PO Q6H PRN PRN Reason: Dyspepsia Stop: 12/21/22 14:01 Azithromycin (Azithromycin 250 Mg Tab) 250 mg PO [id number] BENI Stop: 12/24/22 08:59 Bisacodyl (Bisacodyl 10 Mg Supp) 10 mg TX DAILY PRN PRN Reason: Constipation Stop: 12/21/22 14:01 Citalopram Hydrobromide (Citalopram 40 Mg Tab) 40 mg PO QAM BENI Stop: 12/22/22 08:59 Last Admin: 11/22/22 08:13 Dose: 40 mg Diphenhydramine HCl (Diphenhydramine Capsule 25 Mg Cap) 25 mg PO Q6H PRN PRN Reason: Allergic Rhinitis/Insomnia Stop: 12/21/22 14:01 Famotidine (Famotidine 20 Mg Tab) 20 mg PO Q12H PRN PRN Reason: Dyspepsia Stop: 12/21/22 14:01 Hydromorphone HCl (Hydromorphone Inj 0.5 Mg/0.5 Ml Syr) 0.5 mg IV Q3H PRN PRN Reason: MODERATE Pain (Scale 4,5,6) & Pre PT Stop: 12/05/22 14:01 Hydromorphone HCl (Hydromorphone Inj 1 Mg/Ml Syringe) 1 mg IV Q3H PRN PRN Reason: SEVERE Pain (Scale 7,8,9,10) Stop: 12/05/22 14:01 Hydroxyzine HCl (Hydroxyzine Hcl 25 Mg Tab) 25 mg PO Q8H PRN PRN Reason: Anxiety Stop: 12/21/22 14:01 Acetaminophen (Ofirmev) 1,000 mg in 100 mls @ 400 mls/hr IV Q8H PRN PRN Reason: Pain Rating 1-3 & Pre PT Stop: 11/22/22 14:03 Last Infusion: 11/21/22 19:45 Dose: Infused Promethazine HCl 12.5 mg/ (Sodium Chloride) 50.5 mls @ 202 mls/hr IV Q6H PRN PRN Reason: Nausea &/or Vomiting Stop: 12/21/22 14:01 Influenza Virus Vaccine Quadrival (Do Not Administer Flu Vaccine) 1 each N/A PRN PRN PRN Reason: Notification Stop: 12/21/22 14:01 Lorazepam (Lorazepam 0.5 Mg Tab) 0.5 mg PO Q8H PRN PRN Reason: Sedation/Anxiety Stop: 12/21/22 14:01 Lorazepam (Lorazepam 2 Mg/1 Ml Vial) 0.5 mg IV Q8H PRN PRN Reason: Sedation/Anxiety Stop: 12/21/22 14:01 Magnesium Hydroxide (Magnesium Hydroxide Susp 30 Ml Udc) 30 ml PO Q24H PRN PRN Reason: Constipation Stop: 12/21/22 14:01 Metoclopramide HCl (Metoclopramide Hcl Inj 5 Mg/Ml 2 Ml Vial) 10 mg IV Q6H PRN PRN Reason: Nausea &/or Vomiting Stop: 12/21/22 14:01 Metoprolol Succinate (Metoprolol Succ 25mg Ext Rel Tab) 12.5 mg PO PM BENI Stop: 12/21/22 17:59 Last Admin: 11/21/22 17:47 Dose: 12.5 mg Miscellaneous (Do Not TubeIbrutinib~Order Awaiting Action) 1 each N/A QS BENI Stop: 12/21/22 15:59 Last Admin: 11/22/22 08:13 Dose: Not Given Naloxone HCl (Naloxone Hcl 0.4 Mg/1 Ml Vial/Carp) 0.1 mg IV Q5M PRN PRN Reason: Oversedation/Resp depression Stop: 12/21/22 14:01 Ondansetron HCl (Ondansetron Inj 2 Mg/Ml 2 Ml Vial) 4 mg IV Q6H PRN PRN Reason: Nausea &/or Vomiting Stop: 12/21/22 14:01 Ondansetron HCl (Ondansetron 4 Mg Od Tab) 4 mg PO Q6H PRN PRN Reason: Nausea Stop: 12/21/22 14:01 Oxycodone HCl (Oxycodone Hcl Ir 5 Mg Tab (Immediate Release)) 5 - 10 mg PO Q4H PRN PRN Reason: Pain & Pre PT Stop: 12/05/22 14:01 Pantoprazole Sodium (Pantoprazole 40 Mg Tab) 40 mg PO QAM BENI Stop: 12/22/22 08:59 Last Admin: 11/22/22 08:13 Dose: 40 mg Pneumococcal Polyvalent Vaccine (Do Not Administer Pneumococcal Vaccine) 1 each N/A PRN PRN PRN Reason: Notification Stop: 12/21/22 14:01 Polyethylene Glycol (Polyethylene (Miralax) 17 Gm Pack) 17 gm PO Q6 BENI Stop: 12/22/22 05:59 Last Admin: 11/22/22 05:30 Dose: 17 gm Senna/Docusate Sodium (Docusate Sodium/Senna 50/8.6mg Tab) 2 tab PO [facility] Stop: 12/21/22 20:59 Last Admin: 11/21/22 22:02 Dose: Not Given Sodium Biphosphate/Sodium Phosphate (Sod Phosphate/Sod Biphosphate Enema 132 Ml Btl) 132 ml TX ONE PRN PRN Reason: Constipation Stop: 12/21/22 14:01 Tramadol HCl (Tramadol Hcl 50 Mg Tablet) 50 - 100 mg PO Q4H PRN PRN Reason: Moderate-Severe pain & Pre PT Stop: 12/21/22 14:01 Last Admin: 11/21/22 22:06 Dose: 100 mg Zolpidem Tartrate (Zolpidem Tartrate 10 Mg Tab) 10 mg PO [facility] Stop: 12/21/22 20:59 Last Admin: 11/21/22 22:06 Dose: 10 mg (7) Lymphoma Lymphoma site: unspecified region Lymphoma type: unspecified type Qualified Code(s): C85.90 - Non-Hodgkin lymphoma, unspecified, unspecified site
--- NOTE | 2022-11-22 10:10 | Orthopedic Progress Note ---
Date of Service November 22, 2022 Assessment & Plan (1) Neurogenic claudication due to lumbar spinal stenosis: Plan: At this time continue physical therapy monitor his HONG output anticipate discharge home Thursday. Admission and Anticipated Discharge Date Admission Date: November 21, 2022 Subjective Patient's back pain is controlled leg pain improved. He is tolerating ambulation well. Physical Exam Physical Exam: Patient is currently in bed. He is comfortable. Skin strength testing. Results & Data Vital Signs (Past 12 Hours) Vital Signs Temp Pulse Resp BP BP Pulse Ox O2 Del Method 11/22/22 07:26 37 C 72 16 105/62 95 Room Air 11/22/22 03:39 36.7 C 70 18 107/68 97 Nasal Cannula 11/22/22 01:23 64 92/57 L 96 Nasal Cannula 11/21/22 23:08 36.6 C 61 16 97/59 L 99 Nasal Cannula O2 Flow Rate 11/22/22 07:26 11/22/22 03:39 2 11/22/22 01:23 2 11/21/22 23:08 2 Queries Orthopedic Spine Obesity: Yes
[2022-11-22] MEDS: traMADol HCL 50 MG TABLET PO PRN (12:07)
[2022-11-22] MEDS: ONDANSETRON INJ 2 MG/ML 2 ML VIAL IV PRN (19:13)
[2022-11-22] MEDS: METOPROLOL SUCC 25MG EXT REL TAB PO SCH (21:34)
[2022-11-22] MEDS: ZOLPIDEM TARTRATE 10 MG TAB PO SCH (21:35)
[2022-11-22] MEDS: DOCUSATE SODIUM/SENNA 50/8.6MG TAB PO SCH (21:35)
[2022-11-23] MEDS: POLYETHYLENE (MIRALAX) 17 GM PACK PO SCH ×4 (01:03→17:38)
[2022-11-23] MEDS: ONDANSETRON INJ 2 MG/ML 2 ML VIAL IV PRN (04:37)
[2022-11-23] MEDS ORDERED: CALCIUM CARBONATE 500 MG CHEWABLE TAB PO PRN (04:54)
[2022-11-23 06:00] LABS: Hematocrit (blood only) 33.4 % (42.0-52.0); Hemoglobin 10.4 g/dl (14.0-18.0); Mean Corpuscular Hgb Conc 31.1 g/dL (32.0-36.0); Mean Corpuscular Volume 70.8 fL (80.0-100.0); Mean Platelet Volume 9.7 fL (9.4-12.4); Platelet Count 137 K/uL (130-400); RDW Coefficient of Variation 18.6 % (11.5-14.5); RDW Standard Deviation 46.5 fL (36.4-46.3); Red Blood Count 4.72 M/uL (4.70-6.10); White Blood Count 7.11 K/ul (4.8-10.8)
[2022-11-23 06:05] LABS: BUN Creatinine Ratio 9.7 (10-20); Calcium 7.6 mg/dl (8.6-10.3); Creatinine Clr Calc Pharmacy 52.9 ml/min; Est GFR (African American) 51.1 ml/min; Est GFR (Non-African American) 44.1 ml/min; Magnesium 1.8 mg/dl (1.7-2.4); Potassium 3.9 mmol/L (3.5-5.1)
--- NOTE | 2022-11-23 08:17 | Ultrasound Report ---
US venous doppler LE BI CLINICAL HISTORY: b/l lower ext edema. dvt? TECHNIQUE: Bilateral lower extremity real-time compression venous ultrasound with Color Doppler imagi ng. Utilizing real-time ultrasonic imaging multiple real time high-resolution ultrasonic images with compression and noncompression maneuvers of the deep venous system in addition to color doppler imagi ng were performed from the common femoral vein through the proximal calf veins. COMPARISON: Comparison is made to left lower extremity venous ultrasound 02/06/2022 FINDINGS/IMPRESSION: Partially occlusive thrombus in the left superficial femoral vein. Stranding of the left popliteal ve in may represent a nonocclusive chronic thrombus. This may represent size of previously noted left-si ded thrombus. Evaluation of the calf vessels is limited. No definite right-sided thrombus. ACT 112: Negative or not required by law. Electronically signed by: Lenny Almeida M.D. 11/23/2022 8:15 AM
--- NOTE | 2022-11-23 08:25 | Hospitalist Progress Note ---
Date of Service November 23, 2022 Assessment & Plan (1) S/P spinal surgery: (2) Neurogenic claudication due to lumbar spinal stenosis: Plan: Post op day# 2 S/P removal instrumentation, decompression, fusion L5-S1 by Dr Gomes Pain management per ortho Wound management per ortho PT/OT as appropriate DVT prophylaxis per ortho Incentive spirometry Monitor H&H for acute blood loss anemia, pre-op Hgb: 13 Patient had Ancef ordered post-op. He reports facial swelling with PCN. Spoke to Dr Gomes who recommends Clindamycin in place of Ancef. Acute blood loss anemia, post-op, likely component of dilution as well - Current Hgb 10.4 (10.8 yesterday - stable), pre-op hgb ~13 - cont. to closely monitor - expected , no need for blood transfusion at this time (3) Paroxysmal atrial fibrillation: Plan: H/O Paroxysmal atrial fibrillation, paroxysmal atrial flutter s/p flutter ablation 2003, s/p PVI ablation 2013, history of recurrent PAF after spinal surgery 2021 Chronically anticoagulated on Eliquis Eliquis on hold secondary to spinal surgery - resume per orthop. surgeon Continue metoprolol succinate (4) History of DVT (deep vein thrombosis): Plan: History recurrent DVT chronically anticoagulated on Eliquis. Most recent DVT 01/28/2022 in which was off Eliquis for spinal surgery Eliquis on hold currently secondary to surgery. Resume as able per orthospine Hx of LE edema - doppler obtained - FINDINGS/IMPRESSION: Partially occlusive thrombus in the left superficial femoral vein. Stranding of the left popliteal vein may represent a nonocclusive chronic thrombus. This may represent size of previously noted left-sided thrombus. Evaluation of the calf vessels is limited. No definite right-sided thrombus. (5) CKD (chronic kidney disease) stage 3, GFR 30-59 ml/min: Plan: Pre-op Cr: 1.3 Monitor renal functions, avoid nephrotoxic agents possible (6) Waldenstrom macroglobulinemia: (7) Lymphoma: Plan: Continue Imbuvica Follows with hematology/oncology (8) GERD (gastroesophageal reflux disease): Plan: Continue PPI (9) Depression: Plan: Continue citalopram DVT Prophylaxis SCDs per ortho Disposition per primary service Follows with Dr Allan Kaur for routine care Thank you for this consultation. We will follow the patient with you during their hospital stay. You can reach a [facility] via [employer] Admission and Anticipated Discharge Date Admission Date: November 21, 2022 Subjective Pt seen in follow up in med consult pt s/p lumbar spine surgery Currently laying in bed in NAD Back pain controlled Says he has been ambulating no fever, chills, chest pain, shortness of breath Voiding without difficulty. Passing flatus. Appetite seems to be poor. Pt's present at the bedside. LE edema - per pt chronic - LLE edema 2/2 prior surgery, RLE 2/2 oncologic issues/ meds - US doppler obtained Review of Systems Review of Systems: All systems reviewed & are unremarkable except as noted in Subjective Physical Exam Physical Exam: General: no distress, overweight Head: normocephalic, atraumatic Eyes: conjunctiva non-injected, anicteric ENT: normal inspection external ears, nose, mucous membranes moist Neck: supple Lungs: clear, no respiratory distress, no wheezing/rhonchi/rales CV: RRR, no murmur Abd: normal BS, soft, non-tender Back: surgical dressing in place, +HONG drain with serosanguineous drainage Ext: BLE with edema, bilateral pedal pushes and pulls intact, sensation to light touch intact Neuro: A&O x 3, no facial asymmetry, speech fluent, moves extremities Skin: warm, dry Results & Data Results & Data Vital Signs (Past 12 Hours) Vital Signs Temp Pulse Resp BP Pulse Ox O2 Del Method 11/23/22 07:40 Room Air 11/23/22 06:28 37.5 C 81 18 113/69 92 Room Air 11/22/22 21:35 Room Air 11/22/22 21:30 37.4 C 80 20 117/69 95 Room Air Laboratory Results 11/23/22 11/23/22 Range/Units 05:22 05:22 WBC 7.11 (4.8-10.8) K/ul RBC 4.72 (4.70-6.10) M/uL Hgb 10.4 L (14.0-18.0) g/dl Hct 33.4 L (42.0-52.0) % MCV 70.8 L (80.0-100.0) fL MCH 22.0 L (25.0-34.0) pg MCHC 31.1 L (32.0-36.0) g/dL RDW Std Deviation 46.5 H (36.4-46.3) fL RDW Coeff of Benedict 18.6 H (11.5-14.5) % Plt Count 137 (130-400) K/uL MPV 9.7 (9.4-12.4) fL Sodium 136 (136-145) mmol/L Potassium 3.9 (3.5-5.1) mmol/L Chloride 106 (98-107) mmol/L Carbon Dioxide 25 (21-32) mmol/L Anion Gap 5 (3-11) BUN 15 (6-23) mg/dl Creatinine 1.54 H (0.6-1.4) mg/dl Est Cr Clr Drug Dosing 52.9 ml/min Est GFR ( Amer) 51.1 ml/min Est GFR (Non-Af Amer) 44.1 ml/min BUN/Creatinine Ratio 9.7 L (10-20) Glucose 99 (70-99(Fasting)) mg/dl Calcium 7.6 L (8.6-10.3) mg/dl Magnesium 1.8 (1.7-2.4) mg/dl Medications Administered Current Inpatient Medications Acetaminophen (Acetaminophen 500 Mg Tab) 1,000 mg PO Q8H PRN PRN Reason: MILD Pain Scale 1,2,3 & Pre PT Stop: 12/21/22 14:01 Al Hydrox/Mg Hydrox/Simethicone (Aluminum/Magnesium Susp 30 Ml Udc) 30 ml PO Q6H PRN PRN Reason: Dyspepsia Stop: 12/21/22 14:01 Azithromycin (Azithromycin 250 Mg Tab) 250 mg PO MoWeFr@0900 [facility] Stop: 12/24/22 08:59 Bisacodyl (Bisacodyl 10 Mg Supp) 10 mg [place] DAILY PRN PRN Reason: Constipation Stop: 12/21/22 14:01 Calcium Carbonate (Calcium Carbonate 500 Mg Chewable Tab) 500 mg PO BID PRN PRN Reason: Indigestion Stop: 12/23/22 04:53 Last Admin: 11/23/22 07:38 Dose: 500 mg Citalopram Hydrobromide (Citalopram 40 Mg Tab) 40 mg PO QAM [facility] Stop: 12/22/22 08:59 Last Admin: 11/22/22 08:13 Dose: 40 mg Diphenhydramine HCl (Diphenhydramine Capsule 25 Mg Cap) 25 mg PO Q6H PRN PRN Reason: Allergic Rhinitis/Insomnia Stop: 12/21/22 14:01 Famotidine (Famotidine 20 Mg Tab) 20 mg PO Q12H PRN PRN Reason: Dyspepsia Stop: 12/21/22 14:01 Hydromorphone HCl (Hydromorphone Inj 0.5 Mg/0.5 Ml Syr) 0.5 mg IV Q3H PRN PRN Reason: MODERATE Pain (Scale 4,5,6) & Pre PT Stop: 12/05/22 14:01 Hydromorphone HCl (Hydromorphone Inj 1 Mg/Ml Syringe) 1 mg IV Q3H PRN PRN Reason: SEVERE Pain (Scale 7,8,9,10) Stop: 12/05/22 14:01 Hydroxyzine HCl (Hydroxyzine Hcl 25 Mg Tab) 25 mg PO Q8H PRN PRN Reason: Anxiety Stop: 12/21/22 14:01 Promethazine HCl 12.5 mg/ (Sodium Chloride) 50.5 mls @ 202 mls/hr IV Q6H PRN PRN Reason: Nausea &/or Vomiting Stop: 12/21/22 14:01 Influenza Virus Vaccine Quadrival (Do Not Administer Flu Vaccine) 1 each N/A PRN PRN PRN Reason: Notification Stop: 12/21/22 14:01 Lorazepam (Lorazepam 0.5 Mg Tab) 0.5 mg PO Q8H PRN PRN Reason: Sedation/Anxiety Stop: 12/21/22 14:01 Lorazepam (Lorazepam 2 Mg/1 Ml Vial) 0.5 mg IV Q8H PRN PRN Reason: Sedation/Anxiety Stop: 12/21/22 14:01 Magnesium Hydroxide (Magnesium Hydroxide Susp 30 Ml Udc) 30 ml PO Q24H PRN PRN Reason: Constipation Stop: 12/21/22 14:01 Metoclopramide HCl (Metoclopramide Hcl Inj 5 Mg/Ml 2 Ml Vial) 10 mg IV Q6H PRN PRN Reason: Nausea &/or Vomiting Stop: 12/21/22 14:01 Metoprolol Succinate (Metoprolol Succ 25mg Ext Rel Tab) 12.5 mg PO PM [facility] Stop: 12/21/22 17:59 Last Admin: 11/22/22 21:34 Dose: 12.5 mg Miscellaneous (Do Not TubeIbrutinib~Order Awaiting Action) 1 each N/A QS [facility] Stop: 12/21/22 15:59 Last Admin: 11/23/22 07:39 Dose: Not Given Naloxone HCl (Naloxone Hcl 0.4 Mg/1 Ml Vial/Carp) 0.1 mg IV Q5M PRN PRN Reason: Oversedation/Resp depression Stop: 12/21/22 14:01 Ondansetron HCl (Ondansetron Inj 2 Mg/Ml 2 Ml Vial) 4 mg IV Q6H PRN PRN Reason: Nausea &/or Vomiting Stop: 12/21/22 14:01 Last Admin: 11/23/22 04:37 Dose: 4 mg Ondansetron HCl (Ondansetron 4 Mg Od Tab) 4 mg PO Q6H PRN PRN Reason: Nausea Stop: 12/21/22 14:01 Oxycodone HCl (Oxycodone Hcl Ir 5 Mg Tab (Immediate Release)) 5 - 10 mg PO Q4H PRN PRN Reason: Pain & Pre PT Stop: 12/05/22 14:01 Pantoprazole Sodium (Pantoprazole 40 Mg Tab) 40 mg PO QAM [facility] Stop: 12/22/22 08:59 Last Admin: 11/22/22 08:13 Dose: 40 mg Pneumococcal Polyvalent Vaccine (Do Not Administer Pneumococcal Vaccine) 1 each N/A PRN PRN PRN Reason: Notification Stop: 12/21/22 14:01 Polyethylene Glycol (Polyethylene (Miralax) 17 Gm Pack) 17 gm PO Q6 [facility] Stop: 12/22/22 05:59 Last Admin: 11/23/22 06:42 Dose: Not Given Senna/Docusate Sodium (Docusate Sodium/Senna 50/8.6mg Tab) 2 tab PO HS [facility] Stop: 12/21/22 20:59 Last Admin: 11/22/22 21:35 Dose: 2 tab Sodium Biphosphate/Sodium Phosphate (Sod Phosphate/Sod Biphosphate Enema 132 Ml Btl) 132 ml [place] ONE PRN PRN Reason: Constipation Stop: 12/21/22 14:01 Tramadol HCl (Tramadol Hcl 50 Mg Tablet) 50 - 100 mg PO Q4H PRN PRN Reason: Moderate-Severe pain & Pre PT Stop: 12/21/22 14:01 Last Admin: 11/22/22 12:07 Dose: 100 mg Zolpidem Tartrate (Zolpidem Tartrate 10 Mg Tab) 10 mg PO HS [facility] Stop: 12/21/22 20:59 Last Admin: 11/22/22 21:35 Dose: 10 mg (7) Lymphoma Lymphoma site: unspecified region Lymphoma type: unspecified type Qualified Code(s): C85.90 - Non-Hodgkin lymphoma, unspecified, unspecified site
[2022-11-23] MEDS: CITALOPRAM 40 MG TAB PO SCH (08:49)
[2022-11-23] MEDS: PANTOprazole 40 MG TAB PO SCH (08:50)
--- NOTE | 2022-11-23 11:24 | Orthopedic Progress Note ---
Date of Service November 23, 2022 Assessment & Plan (1) S/P spinal surgery: Plan: Patient's improving appropriately. HONG drain decreasing appropriately. We will continue with ambulation as tolerated and dissipate discharge home tomorrow. Admission and Anticipated Discharge Date Admission Date: November 21, 2022 Subjective Patient's back pain is controlled leg pain improved Physical Exam Physical Exam: Patient seen bedside. Discussed active testing. Appears comfortable. Results & Data Vital Signs (Past 12 Hours) Vital Signs Temp Pulse Resp BP Pulse Ox O2 Del Method 11/23/22 07:40 Room Air 11/23/22 06:28 37.5 C 81 18 113/69 92 Room Air Queries Orthopedic Spine Obesity: Yes
[2022-11-23] MEDS: DOCUSATE SODIUM/SENNA 50/8.6MG TAB PO SCH (21:18)
[2022-11-23] MEDS: ZOLPIDEM TARTRATE 10 MG TAB PO SCH (21:18)
[2022-11-23] MEDS: METOPROLOL SUCC 25MG EXT REL TAB PO SCH (21:18)
[2022-11-23] MEDS ORDERED: VANCOMYCIN CONSULT ACTIVE PRN (23:06)
[2022-11-23] MEDS ORDERED: VANCOMYCIN HCL 2,250 MG in SODIUM CHLORIDE 0.9% 500 ML IV STA (23:14)
[2022-11-23] MEDS ORDERED: VANCOMYCIN HCL 1,000 MG in SODIUM CHLORIDE 0.9% 250 ML IV SCH (23:15)
[2022-11-24] MEDS: POLYETHYLENE (MIRALAX) 17 GM PACK PO SCH ×3 (00:31→11:48)
[2022-11-24] MEDS: AZTREONAM 2,000 MG in DEXTROSE 5% MINI-B 100 ML IV SCH ×2 (03:12→08:00)
[2022-11-24 06:26] LABS: Hematocrit (blood only) 33.6 % (42.0-52.0); Hemoglobin 10.4 g/dl (14.0-18.0); Mean Corpuscular Hemoglobin 21.9 pg (25.0-34.0); Mean Corpuscular Volume 70.7 fL (80.0-100.0); Mean Platelet Volume 10.1 fL (9.4-12.4); Platelet Count 155 K/uL (130-400); RDW Standard Deviation 47.6 fL (36.4-46.3); Red Blood Count 4.75 M/uL (4.70-6.10); White Blood Count 7.51 K/ul (4.8-10.8)
[2022-11-24 06:46] LABS: BUN Creatinine Ratio 10.6 (10-20); Calcium 7.9 mg/dl (8.6-10.3); Creatinine Clr Calc Pharmacy 53.9 ml/min; Est GFR (African American) 52.4 ml/min; Est GFR (Non-African American) 45.2 ml/min; Phosphorus 2.1 mg/dl (2.5-4.9); Potassium 3.9 mmol/L (3.5-5.1)
--- NOTE | 2022-11-24 07:40 | XRay Report ---
XR chest 1V portable CLINICAL HISTORY: fevers TECHNIQUE: Single frontal radiograph of the chest was obtained. Comparison: Comparison is made to chest radiograph 01/09/2022 FINDINGS: No lines and tubes are seen. Cardiomegaly is noted. The lungs are clear. No evidence of pleural effus ion or pneumothorax. IMPRESSION: No acute abnormalities and in particular no radiographic evidence of pneumonia. ACT 112: Negative or not required by law. Electronically signed by: Lenny Almeida M.D. 11/24/2022 7:39 AM
[2022-11-24] MEDS: PANTOprazole 40 MG TAB PO SCH (08:01)
[2022-11-24] MEDS: CITALOPRAM 40 MG TAB PO SCH (08:01)
[2022-11-24 08:27] LABS: Appearance Urine Clear (Clear); Bacteria Urine Automated Negative (Negative); Bilirubin Urine Negative (Negative); Blood Urine Negative (Negative); Color Urine Yellow; Epithelial Cell Urine Auto 0-5 /lpf (0-5); Glucose Urine UA Negative (Negative); Ketones Urine Negative (Negative); Leukocyte Esterase Urine Negative (Negative); Nitrite Urine Negative (Negative); Protein Urine Trace (Negative); RBC Urine Automated 0-4 /hpf (0-4); Specific Gravity Urine 1.019 (1.000-1.030); Urobilinogen Urine Negative (Negative); pH Urine 5.5 (4.5-7.5)
[2022-11-24] MEDS ORDERED: AZITHROMYCIN 250 MG TAB PO SCH (09:00)
--- NOTE | 2022-11-24 09:34 | Pharmacy Report ---
Pharmacy PK ABX Note - Date of Service November 24, 2022 - Assessment and Plan Assessment 72 year old M receiving vancomycin/Azactam for empiric treatment/fever following s/p spinal revision decompression & fusion. Pertinent microbiologic data includes: Blood cultures pending Day # 1 of antimicrobial therapy. Plan Vancomycin * Loading dose: 0012 mg IV x 1 * Maintenance dose: 1500 mg IV every 24 hours * Regimen is predicted to achieve target AUC/GERARD of 400-600 mg/L.hr * Random level to be ordered if continued >48 hours Pharmacy will continue to follow and will adjust dose/frequency as necessary. Thank you. Pharmacy has transitioned to AUC monitoring for vancomycin. AUC/GERARD is the preferred PK/PD target and is associated with decreased risk of nephrotoxicity compared to traditional trough targets.
--- NOTE | 2022-11-24 09:38 | Hospitalist Progress Note ---
Date of Service November 24, 2022 Assessment & Plan (1) S/P spinal surgery: (2) Neurogenic claudication due to lumbar spinal stenosis: Plan: Post op day# 3 S/P removal instrumentation, decompression, fusion L5-S1 by Dr Gomes Pain management per ortho Wound management per ortho PT/OT as appropriate DVT prophylaxis per ortho Incentive spirometry Monitor H&H for acute blood loss anemia, pre-op Hgb: 13 Patient had Ancef ordered post-op. He reports facial swelling with PCN. Spoke to Dr Gomes who recommends Clindamycin in place of Ancef. Acute blood loss anemia, post-op, likely component of dilution as well - Current Hgb 10.4 (stable), pre-op hgb ~13 - cont. to closely monitor - expected , no need for blood transfusion at this time 11/24 - Overnight pt spiked fever and was confused (received ativan), CXR, UA and blood cultx obtained . Started on empiric Abx. CXR, UA - negative. Blood cultx - negat. so far. WBC not elevated. Discussed w/ Dr. Gomes at the bedside - pt wants to go home. Fever likely from being post-op, no concern for infection at this time. Encouraged using spirometer - discussed w/ RN. Recommend to follow up w/ PCP on final blood cultx results and contact health care provider if any changes at home - such as fever, confusion. (3) Paroxysmal atrial fibrillation: Plan: H/O Paroxysmal atrial fibrillation, paroxysmal atrial flutter s/p flutter ablation 2003, s/p PVI ablation 2013, history of recurrent PAF after spinal surgery 2021 Chronically anticoagulated on Eliquis Eliquis on hold secondary to spinal surgery - resume per orthop. surgeon - plan to resume tmrw Continue metoprolol succinate (4) History of DVT (deep vein thrombosis): Plan: History recurrent DVT chronically anticoagulated on Eliquis. Most recent DVT 01/28/2022 in which was off Eliquis for spinal surgery Eliquis on hold currently secondary to surgery. Resume as able per orthospine - plan to resume tmrw Hx of LE edema - doppler obtained - FINDINGS/IMPRESSION: Partially occlusive thrombus in the left superficial femoral vein. Stranding of the left popliteal vein may represent a nonocclusive chronic thrombus. This may represent size of previously noted left-sided thrombus. Evaluation of the calf vessels is limited. No definite right-sided thrombus. (5) CKD (chronic kidney disease) stage 3, GFR 30-59 ml/min: Plan: Pre-op Cr: 1.3 Monitor renal functions, avoid nephrotoxic agents possible (6) Waldenstrom macroglobulinemia: (7) Lymphoma: Plan: Continue Imbuvica Follows with hematology/oncology (8) GERD (gastroesophageal reflux disease): Plan: Continue PPI (9) Depression: Plan: Continue citalopram DVT Prophylaxis SCDs per ortho Disposition per primary service Follows with Dr Allan Kaur for routine care Thank you for this consultation. We will follow the patient with you during their hospital stay. You can reach a member of the [facility]09 via [employer] Admission and Anticipated Discharge Date Admission Date: November 21, 2022 Subjective Pt seen in follow up in med consult pt s/p lumbar spine surgery Currently laying in bed in NAD Back pain controlled Says he has been ambulating no fever, chills, chest pain, shortness of breath Voiding without difficulty. Passing flatus. Appetite seems to be poor. Pt's present at the bedside. LE edema - per pt chronic - LLE edema 2/2 prior surgery, RLE 2/2 oncologic issues/ meds - US doppler obtained Overnight pt spiked fever and was confused (received ativan), CXR, UA and blood cultx obtained . Started on empiric Abx. CXR, UA - negative. Blood cultx - negat. so far. Discussed w/ Dr. Gomes at the bedside - pt wants to go home. Fever likely from being post-op, no concern for infection at this time. Encouraged using spirometer - discussed w/ RN. Review of Systems Review of Systems: All systems reviewed & are unremarkable except as noted in Subjective Physical Exam Physical Exam: General: no distress, overweight Head: normocephalic, atraumatic Eyes: conjunctiva non-injected, anicteric ENT: normal inspection external ears, nose, mucous membranes moist Neck: supple Lungs: clear, no respiratory distress, no wheezing/rhonchi/rales CV: RRR, no murmur Abd: normal BS, soft, non-tender Back: surgical dressing in place, +HONG drain with serosanguineous drainage Ext: BLE with edema, bilateral pedal pushes and pulls intact, sensation to light touch intact Neuro: A&O x 3, no facial asymmetry, speech fluent, moves extremities Skin: warm, dry Results & Data Results & Data Vital Signs (Past 12 Hours) Vital Signs Temp Pulse Resp BP Pulse Ox O2 Del Method 11/24/22 08:58 Room Air 11/24/22 07:39 36.7 C 77 16 110/67 96 Room Air 11/24/22 03:09 36.8 C 82 16 95 Room Air 11/24/22 00:29 Room Air 11/23/22 22:50 Room Air 11/24/22 00:17 93 H 94 Room Air 11/24/22 00:09 38.1 C H 11/23/22 22:47 39.2 C H 94 H 16 146/76 H 93 Room Air Laboratory Results 11/24/22 11/24/22 11/24/22 Range/Units 08:07 05:42 05:42 WBC 7.51 (4.8-10.8) K/ul RBC 4.75 (4.70-6.10) M/uL Hgb 10.4 L (14.0-18.0) g/dl Hct 33.6 L (42.0-52.0) % MCV 70.7 L (80.0-100.0) fL MCH 21.9 L (25.0-34.0) pg MCHC 31.0 L (32.0-36.0) g/dL RDW Std Deviation 47.6 H (36.4-46.3) fL RDW Coeff of Benedict 19.0 H (11.5-14.5) % Plt Count 155 (130-400) K/uL MPV 10.1 (9.4-12.4) fL Sodium 136 (136-145) mmol/L Potassium 3.9 (3.5-5.1) mmol/L Chloride 105 (98-107) mmol/L Carbon Dioxide 25 (21-32) mmol/L Anion Gap 6 (3-11) BUN 16 (6-23) mg/dl Creatinine 1.51 H (0.6-1.4) mg/dl Est Cr Clr Drug Dosing 53.9 ml/min Est GFR ( Amer) 52.4 ml/min Est GFR (Non-Af Amer) 45.2 ml/min BUN/Creatinine Ratio 10.6 (10-20) Glucose 100 H (70-99(Fasting)) mg/dl Calcium 7.9 L (8.6-10.3) mg/dl Phosphorus 2.1 L (2.5-4.9) mg/dl Magnesium 2.0 (1.7-2.4) mg/dl Urine Color Yellow Urine Appearance Clear (Clear) Urine pH 5.5 (4.5-7.5) Ur Specific [place] 1.019 (1.000-1.030) Urine Protein Trace H (Negative) Urine Glucose (UA) Negative (Negative) Urine Ketones Negative (Negative) Urine Blood Negative (Negative) Urine Nitrite Negative (Negative) Urine Bilirubin Negative (Negative) Urine Urobilinogen Negative (Negative) Ur Leukocyte Esterase Negative (Negative) Urine WBC (Auto) 1-5 (0-5) /hpf Urine RBC (Auto) 0-4 (0-4) /hpf U Hyaline Cast (Auto) 1-5 (0-5) /lpf U Epithel Cells (Auto) 0-5 (0-5) /lpf Urine Bacteria (Auto) Negative (Negative) Medications Administered Current Inpatient Medications Acetaminophen (Acetaminophen 500 Mg Tab) 1,000 mg PO Q8H PRN PRN Reason: MILD Pain Scale 1,2,3 & Pre PT Stop: 12/21/22 14:01 Last Admin: 11/23/22 22:54 Dose: 1,000 mg Al Hydrox/Mg Hydrox/Simethicone (Aluminum/Magnesium Susp 30 Ml Udc) 30 ml PO Q6H PRN PRN Reason: Dyspepsia Stop: 12/21/22 14:01 Last Admin: 11/23/22 10:44 Dose: 30 ml Azithromycin (Azithromycin 250 Mg Tab) 250 mg PO MoWeFr@0900 [facility] Stop: 12/24/22 08:59 Last Admin: 11/24/22 08:01 Dose: 250 mg Bisacodyl (Bisacodyl 10 Mg Supp) 10 mg [place] DAILY PRN PRN Reason: Constipation Stop: 12/21/22 14:01 Calcium Carbonate (Calcium Carbonate 500 Mg Chewable Tab) 500 mg PO BID PRN PRN Reason: Indigestion Stop: 12/23/22 04:53 Last Admin: 11/23/22 07:38 Dose: 500 mg Citalopram Hydrobromide (Citalopram 40 Mg Tab) 40 mg PO QAM [facility] Stop: 12/22/22 08:59 Last Admin: 11/24/22 08:01 Dose: 40 mg Diphenhydramine HCl (Diphenhydramine Capsule 25 Mg Cap) 25 mg PO Q6H PRN PRN Reason: Allergic Rhinitis/Insomnia Stop: 12/21/22 14:01 Famotidine (Famotidine 20 Mg Tab) 20 mg PO Q12H PRN PRN Reason: Dyspepsia Stop: 12/21/22 14:01 Hydromorphone HCl (Hydromorphone Inj 0.5 Mg/0.5 Ml Syr) 0.5 mg IV Q3H PRN PRN Reason: MODERATE Pain (Scale 4,5,6) & Pre PT Stop: 12/05/22 14:01 Hydromorphone HCl (Hydromorphone Inj 1 Mg/Ml Syringe) 1 mg IV Q3H PRN PRN Reason: SEVERE Pain (Scale 7,8,9,10) Stop: 12/05/22 14:01 Hydroxyzine HCl (Hydroxyzine Hcl 25 Mg Tab) 25 mg PO Q8H PRN PRN Reason: Anxiety Stop: 12/21/22 14:01 Promethazine HCl 12.5 mg/ (Sodium Chloride) 50.5 mls @ 202 mls/hr IV Q6H PRN PRN Reason: Nausea &/or Vomiting Stop: 12/21/22 14:01 Aztreonam 2,000 mg/ Dextrose 100 mls @ 100 mls/hr IV Q8H [facility] Stop: 11/26/22 00:00 Last Infusion: 11/24/22 09:00 Dose: Infused Vancomycin HCl 1,500 mg/ (Sodium Chloride) 530 mls @ 200 mls/hr IV Q24H [facility] Stop: 11/26/22 19:59 Influenza Virus Vaccine Quadrival (Do Not Administer Flu Vaccine) 1 each N/A PRN PRN PRN Reason: Notification Stop: 12/21/22 14:01 Lorazepam (Lorazepam 0.5 Mg Tab) 0.5 mg PO Q8H PRN PRN Reason: Sedation/Anxiety Stop: 12/21/22 14:01 Lorazepam (Lorazepam 2 Mg/1 Ml Vial) 0.5 mg IV Q8H PRN PRN Reason: Sedation/Anxiety Stop: 12/21/22 14:01 Last Admin: 11/24/22 04:14 Dose: 0.5 mg Magnesium Hydroxide (Magnesium Hydroxide Susp 30 Ml Udc) 30 ml PO Q24H PRN PRN Reason: Constipation Stop: 12/21/22 14:01 Metoclopramide HCl (Metoclopramide Hcl Inj 5 Mg/Ml 2 Ml Vial) 10 mg IV Q6H PRN PRN Reason: Nausea &/or Vomiting Stop: 12/21/22 14:01 Metoprolol Succinate (Metoprolol Succ 25mg Ext Rel Tab) 12.5 mg PO PM [facility] Stop: 12/21/22 17:59 Last Admin: 11/23/22 21:18 Dose: 12.5 mg Miscellaneous (Do Not TubeIbrutinib~Order Awaiting Action) 1 each N/A QS [facility] Stop: 12/21/22 15:59 Last Admin: 11/24/22 08:01 Dose: Not Given Miscellaneous Information (Vancomycin Consult Active) 1 each N/A UD PRN PRN Reason: Consult Stop: 12/23/22 23:05 Naloxone HCl (Naloxone Hcl 0.4 Mg/1 Ml Vial/Carp) 0.1 mg IV Q5M PRN PRN Reason: Oversedation/Resp depression Stop: 12/21/22 14:01 Ondansetron HCl (Ondansetron Inj 2 Mg/Ml 2 Ml Vial) 4 mg IV Q6H PRN PRN Reason: Nausea &/or Vomiting Stop: 12/21/22 14:01 Last Admin: 11/23/22 04:37 Dose: 4 mg Ondansetron HCl (Ondansetron 4 Mg Od Tab) 4 mg PO Q6H PRN PRN Reason: Nausea Stop: 12/21/22 14:01 Last Admin: 11/23/22 22:41 Dose: 4 mg Oxycodone HCl (Oxycodone Hcl Ir 5 Mg Tab (Immediate Release)) 5 - 10 mg PO Q4H PRN PRN Reason: Pain & Pre PT Stop: 12/05/22 14:01 Pantoprazole Sodium (Pantoprazole 40 Mg Tab) 40 mg PO QAM [facility] Stop: 12/22/22 08:59 Last Admin: 11/24/22 08:01 Dose: 40 mg Pneumococcal Polyvalent Vaccine (Do Not Administer Pneumococcal Vaccine) 1 each N/A PRN PRN PRN Reason: Notification Stop: 12/21/22 14:01 Polyethylene Glycol (Polyethylene (Miralax) 17 Gm Pack) 17 gm PO Q6 [facility] Stop: 12/22/22 05:59 Last Admin: 11/24/22 05:19 Dose: Not Given Senna/Docusate Sodium (Docusate Sodium/Senna 50/8.6mg Tab) 2 tab PO HS [facility] Stop: 12/21/22 20:59 Last Admin: 11/23/22 21:18 Dose: 2 tab Sodium Biphosphate/Sodium Phosphate (Sod Phosphate/Sod Biphosphate Enema 132 Ml Btl) 132 ml [place] ONE PRN PRN Reason: Constipation Stop: 12/21/22 14:01 Tramadol HCl (Tramadol Hcl 50 Mg Tablet) 50 - 100 mg PO Q4H PRN PRN Reason: Moderate-Severe pain & Pre PT Stop: 12/21/22 14:01 Last Admin: 11/22/22 12:07 Dose: 100 mg Zolpidem Tartrate (Zolpidem Tartrate 10 Mg Tab) 10 mg PO HS [facility] Stop: 12/21/22 20:59 Last Admin: 11/23/22 21:18 Dose: 10 mg (7) Lymphoma Lymphoma site: unspecified region Lymphoma type: unspecified type Qualified Code(s): C85.90 - Non-Hodgkin lymphoma, unspecified, unspecified site
--- NOTE | 2022-11-24 10:24 | Discharge Summary ---
Date of Service November 24, 2022 Admission HPI Per Admitting Provider This is a 72-year-old male well-known to me the presents with chronic back and leg pain after failing course of nonoperative care is here for surgical invention. Principal Diagnosis Nonunion L5-S1 Discharge Data Allergies Allergy/AdvReac Type Severity Reaction Status Date / Time dexamethasone [From Decadron] Allergy Unknown passed out Verified 11/21/22 09:08 Penicillins Allergy Unknown Swelling Verified 11/21/22 18:40 procaine Allergy Unknown Passed out Verified 11/21/22 09:08 prednisone AdvReac Intermediate GI upset Verified 11/21/22 09:08 ranitidine AdvReac Unknown "stomach Verified 11/21/22 09:08 burning" Consultations 11/21/22 14:02 Consult Hospitalist Routine Procedures Performed Operation Date: 11/21/22 10:05 Actual Procedures p L4-S1 Revision Decompression and Fusion, Spinal Cord Monitoring(Not Applicable) - Prince Gomes DO Ordered Studies 11/21/22 10:05 FL lumbar spine 2-3V Routine 11/23/22 00:55 US venous doppler [facility] Urgent Hospital Course (1) Neurogenic claudication due to lumbar spinal stenosis: Patient underwent revision decompression fusion tolerated well was taken to orthopedic for postoperative. Postoperatively progressed appropriately. Pain well controlled. HONG drain decreasing appropriately. Subsequent discharge home. Discharge orders instructions found in chart for further review. Total Time Total Time Spent Total Time Spent (In Minutes): 20 minutes Discharge Plan Discharge Items Patient Disposition: Home - Self-Care Reason For Visit: Postlaminectomy Syndrome, Not Elsewhere Classified Discharge Diagnosis: Lumbar spinal stenosis with nonunion L5-S1 Activity: As commented below Non-emergency contact: Primary Care Provider Call non-emergency contact if: you have any medication questions Follow-up/Referrals: Allan Kaur M.D. [Primary Care Provider] - Diet: Regular Addtl Attending Provider Instructions: ACTIVITY RECOMMENDATIONS: SELF CARE INSTRUCTIONS AFTER THORACIC/LUMBAR FUSIONS 1. You may walk to your tolerance. It is good exercise for your legs and back. Expect some back and intermittent leg aches and pains. 2. You may perform "counter-top" level activities (make a sandwich, ross with a project, etc.). 3. No bending or lifting of more than 10 pounds or back twisting of any nature (roll like a log when turning in bed). 4. You may ride in a car for 20-30 minutes at a time. No driving until after your first visit with your doctor. 5. Frequent changes of position and restricting sitting to 30 minutes at a time will help limit the amount of back spasms and stiffness you may experience. 6. You may discontinue the use of ambulatory aids (cane, crutches, etc.) once your strength and confidence allow. 7. You may nuclear radiation engineer the shower and let water strike your incision when you arrive home at least once daily. Do not take a tub bath, sit in a hot tub or go into a swimming pool until after your first recheck in the office. SPECIAL CARE INSTRUCTIONS: VERY IMPORTANT TO READ AND REVIEW A. Your surgical incision has been closed with a cosmetic suture under the skin that will dissolve in about 6 weeks. In 14 days, you can use a pair of clean scissors and cut the suture that is left outside of the skin at the ends of your incision. 1. The small skin tapes can be removed 7 days after surgery if they have not fallen off by that point. 2. You may keep the wound open to air as much as possible to promote healing after post-op day number 5 unless told otherwise by your doctor. 3. If you think the wound looks like it is becoming infected (redness or worsening drainage) and/or you are experiencing fever, chill or worsening back pain and muscle spasms, contact the office so that we may evaluate you as soon as possible. B. Complications are uncommon, but please contact us if you have any signs or symptoms of: 1. wound infection (fever higher than 102.5 degrees F, redness, separation of wound, drainage, or increasing pain from the incision) 2. blood clots in legs (pain, swelling, redness and warmth in legs) 3. urinary tract infection (fever higher than 102.5 degrees F, burning upon urination or increased frequency of urination) 4. nerve problems (inability to walk on your toes or heels, numbness, loss of bowel or bladder control) 5. any other symptoms that concern you C. Please call the office at if you have any concerns or questions about your operation or recovery. D. No smoking! Smoking drastically decreases the chance of a solid fusion. E. Do not take any anti-inflammatory medications (Indocin, Advil, Motrin, Aspirin, Naprosyn, etc.) as these may inhibit the chance of a solid fusion. Tylenol is okay to take for pain. MANAGING PAIN AFTER SPINAL SURGERY 1. Narcotic medication is intended for short-term use and will be provided for surgical pain. Surgical pain usually lasts for a period of 4-6 weeks. Narcotic medication includes Percocet, Vicodin, Darvocet, Tylenol #3 or Lortab. 2. Longer-term pain is more appropriately treated with non-narcotic medication such as Tylenol ES. 3. Muscle spasm is not appropriately treated with narcotics. Muscle relaxers such as Soma, Flexeril or Skelaxin can be used along with Tylenol ES. 4. Remember that we all live with some "aches and pains". This is not unusual or uncommon after an injury or as we get older. a. Back pain is expected and may include muscle spasms for 4 to 6 weeks after surgery. The pain should gradually improve. If the pain worsens for no apparent reason, please contact the office. b. Intermittent leg pain may also be experienced and should not be concerned about unless it worsens for no apparent reason. If so, please contact the office. 5. We will provide appropriate medication within the normal guidelines of their prescribed use. We will also be very cautious and aware of potential abuse and extended duration of patients' medication needs. a. Pain medications are for your comfort and to assist with sleep and rest so that the tissue can heal. They are not provided in order to return to normal activity and should not be used through the day. To do so or worsening pain at night can result from ongoing tissue damage and development of tolerance to the prescribed medicine. 6. Please allow 2-3 days to process refills. Prescriptions will not be mailed but must be picked up at the office. FOLLOW UP VISIT: Keep your scheduled follow-up appointment. Any questions, please call the office at . Pending Studies at Discharge: No Stand-Alone Forms: [employer], Smoking Cessation Medications and DC Order Prescriptions: New tramadol 50 mg tablet 50 mg PO Q6H PRN (Reason: pain, moderate) Qty: 30 0RF oxycodone 5 mg tablet 5 mg PO Q6H PRN (Reason: pain) Qty: 30 0RF Continued citalopram [Celexa] 40 mg tablet 40 mg PO QAM Eliquis 5 mg tablet 5 mg PO BID triamcinolone acetonide 0.1 % ointment 1 applic topical BID PRN (Reason: Skin Irritation) (DME) comp.stocking,thigh,long,large misc See Rx Instructions .ROUTE .MEDSUPPLY Qty: 2 0RF Rx Instructions: As directed zolpidem [Ambien] 10 mg Tablet 10 mg PO HS Patient Comments: pt takes this every night. pantoprazole [Protonix] 40 mg Tablet,Delayed Release (Dr/Ec) 40 mg PO QAM Imbruvica 280 mg Tablet 280 mg PO HS azithromycin 250 mg tablet 250 mg PO UD Rx Instructions: TAKE 1 TABLET BY MOUTH ONCE A DAY ON MONDAYS, WEDNESDAYS AND FRIDAYS. promethazine 25 mg tablet 25 mg PO DAILY PRN (Reason: Nausea) metoprolol succinate 25 mg tablet extended release 24 hr 12.5 mg PO PM Discharge Orders: Discharge Order (Routine); Ordered 11/24/22 Ordered By: Prince Gomes Admission Data Admit Date/Time: 11/21/22 12:12 Attending Provider: Prince Gomes Admit Provider: Prince Gomes Primary Care Provider: Allan Kaur Other Providers: Laura Whalen ; Garret Malin
[2022-11-24] MEDS ORDERED: VANCOMYCIN HCL 1,500 MG in SODIUM CHLORIDE 0.9% 500 ML IV SCH (20:00)
== END 2022-11-24 13:56 | disposition home or self-care (01) | DRG 460 ==
LOC: ASU 08:15 → 3E 12:12